=== PATIENT | female | born 1965 | race Caucasian/White ===

== ENCOUNTER 2017-05-24 13:12 | Day surgery (SDC) | payer MEDICARE, SELFPAY | END 2017-05-24 15:16 | disposition home or self-care (01) | PROVIDERS: Family Provider Emergency Medicine; Visit Provider Nurse Anesthetist, Certified Registered | DX: M51.36 Other intervertebral disc degeneration, lumbar region (principal); M47.896 Other spondylosis, lumbar region; M54.06 Panniculitis affecting regions of neck and back, lumbar region | CPT/HCPCS: 64493; 64494; 64495; J1040 ==

== ENCOUNTER 2017-06-02 10:00 | Outpatient (RCR) | payer MEDICARE, SELFPAY | END 2017-06-02 23:59 | LOC: OT 10:00 | PROVIDERS: Family Provider Emergency Medicine; PCP Emergency Medicine; Visit Provider Emergency Medicine | DX: M25.511 Pain in right shoulder (principal) | CPT/HCPCS: 97035; 97110 ==

== ENCOUNTER → 2017-06-27 11:27 | Outpatient (POV) | payer MEDICARE, SELFPAY ==
[2017-06-27 11:46] VITALS: BP 137/82; PULSE 83; RESP 20; TEMP 36.4; O2SAT 94; BMI 43.4
--- NOTE | 2017-06-27 11:58 | P.CONS_ITS ---
[facility] Pain Management SOAP Note Subjective:: This patient is a pleasant 51-year-old white female who we are seeing for degenerative disc disease of lumbar spine with lumbar spondylosis and facet arthropathy as well as bilateral sacroiliitis. She had bilateral medial branch blocks of L3-L4, L4-L5 and L5-S1 with 80% relief of her pain symptoms for 2-3 weeks. Her pain is starting to return. It is interfering with her activity. We will seek approval for repeat bilateral medial branch blocks/facet joint injections at L3-L4, L4-5 and L5-S1. Objective:: Alert and oriented ?3 in no acute distress. Increased pain with extension. Tenderness over lower lumbar spine over the facet joints of L3-L4, L4-L5 and L5- S1. Motor strength of the lower extremities is 5/5. There is no gross sensory deficit. Assessment:: Degenerative disc disease of lumbar spine with lumbar spondylosis and facet arthropathy at L3-L4, L4-L5 and L5-S1. Plan:: We will seek approval for repeat facet joint injection/medial branch blocks of L3-L4, L4-L5 and L5-S1. Patient got 80% relief for 3 weeks with her previous round of medial branch blocks at the same levels.
== END ==
PROVIDERS: Family Provider Emergency Medicine; PCP Emergency Medicine; Visit Provider Anesthesiology
DX: M47.26 Other spondylosis with radiculopathy, lumbar region (principal)
CPT/HCPCS: 99212

== ENCOUNTER 2017-07-05 17:17 | Emergency (ER) | payer MEDICARE, SELFPAY ==
[2017-07-05 18:32] VITALS: BP 123/78; PULSE 72; RESP 20; TEMP 37.4; O2SAT 96; BMI 43.6
[2017-07-05 18:57] LABS: UTC Influenza A Antigen Negative (Negative); UTC Influenza B Antigen Negative (Negative)
--- NOTE | 2017-07-05 19:03 | HMH.EDUTC ---
[facility] [place] Clinical Impression: Sinusitis Qualifiers: Sinusitis location: maxillary Chronicity: unspecified Qualified Code(s): J32.0 - Chronic maxillary sinusitis Disposition: Home, Self-Care Condition on Discharge: Good Instructions: Sinusitis, Sinus Headache, DI for Sinusitis Additional Instructions: Start antibiotic. Sinus infections may take 2-3 days to notice much improvement so be sure to use conservative measures as discussed for symptoms Flonase 2 spray in each nostril daily to help with nasal congestion, sinus an ear pressure/inflammation Lots of Fluids Sleep elevated Humidifer/vaporizer Augmentin can cause GI effects. Probiotics may help to prevent these symptoms Prescriptions: Amoxicillin/Potassium Clav [Augmentin 875-125 Tablet] 1 tab PO Q12H #14 tab Dextromethorphan Polistirex [Delsym] 10 ml PO Q12H PRN #200 maxx.er.12h PRN Reason: Cough Fluticasone Propionate [Flonase 50mcg nasal spray 16gm] 2 spr NS DAILY #1 bottle Guaifenesin/Dextromethorphan [Mucinex Dm ER 1,200-60 mg Tab] 1 each PO BID #20 tab.er.12h Referrals: Brodie Thompson MD [Primary Care Provider] - Time of Disposition: 19:17 Medical Decision Making - Medical Records Medical records reviewed: Yes: I reviewed the patient's medical records. Vital Signs: 07/05/17 18:32 Temperature 99.3 F Temperature Source Temporal Artery Scan Pulse Rate [Right] 72 Respiratory Rate 20 Blood Pressure [Right Arm] 123/78 Blood Pressure Mean [Right Arm] 93 Blood Pressure Source [Right Arm] Automatic Cuff Blood Pressure Position [Right Arm] Sitting 02 Sat by Pulse Oximetry 96 Oxygen Delivery Method Room Air - Lab Data Lab Results 07/05/17 18:33: Influenza Type A Ag Negative, Influenza Type B Ag Negative - [place] Inquiry Pt receiving controlled substance: No [place] was queried for this patient: No - Reevaluation(s) Time: 19:16 Reevaluation #1: Patient state that she is allergic to Cefaclor but she is able to take the cillin family without any reaction [facility] [place] - General Stated complaint: cough Mode of Arrival: Ambulatory Source of Information: Patient Limitations: No Limitations Description of Symptoms (Recalled from Triage Doc. by RN): COUGH, CONGESTION, BODY ACHES BEGAN YESTERDAY HEENT Symptoms (Recalled from RN notes): Yes Resp Symptoms (Recalled from RN notes): No Skin Symptoms (Recalled from RN notes): No MS Symptoms (Recalled from RN notes): No Functional Status (Recalled from RN notes): N - History of Present Illness Provider Complaint: Patient state that she has been having problems with her sinuses on and off for couple of weeks State that yesterday sinus pain and pressure returned and continued to get worse State that she has been having fever and chills and cough - Related Data Previous Rx's Medication Instructions Recorded Amoxicillin/Potassium Clav 1 tab PO Q12H #14 tab 07/05/17 [Augmentin 875-125 Tablet] Dextromethorphan Polistirex 10 ml PO Q12H PRN #200 maxx.er.12h 07/05/17 [Delsym] Fluticasone Propionate [Flonase 2 spr NS DAILY #1 bottle 07/05/17 50mcg nasal spray 16gm] Guaifenesin/Dextromethorphan 1 each PO BID #20 tab.er.12h 07/05/17 [Mucinex Dm ER 1,200-60 mg Tab] Allergies Allergy/AdvReac Type Severity Reaction Status Date / Time cefaclor [From Ceclor] Allergy Intermediate I-HIVES Verified 07/05/17 18:35 Sulfa (Sulfonamide Allergy Intermediate I-HIVES Verified 07/05/17 18:35 Antibiotics) - Worker's Comp Is this a Worker's Comp case?: No [facility] History I have reviewed the patient's past medical history: Yes - *Social History Alcohol Intake: never - Psychiatric History Expresses thoughts of harming self/others: None Suicide Plan Description: No Plan ROS Obtained: Yes All systems reviewed & no additional complaints - Constitutional Constitutional: Reports body ache, Reports chills, Reports fever(s) - ENT Ears, Nose, Mouth, and Throat: Reports sinus pain, Rep
--- NOTE | 2017-07-05 19:11 | ED_ITS ---
[facility] [place] Disposition Clinical Impression: Sinusitis Qualifiers: Sinusitis location: maxillary Chronicity: unspecified Qualified Code(s): J32.0 - Chronic maxillary sinusitis Disposition: Home, Self-Care Condition on Discharge: Good Instructions: Sinusitis, Sinus Headache, DI for Sinusitis Additional Instructions: Start antibiotic. Sinus infections may take 2-3 days to notice much improvement so be sure to use conservative measures as discussed for symptoms Flonase 2 spray in each nostril daily to help with nasal congestion, sinus an ear pressure/inflammation Lots of Fluids Sleep elevated Humidifer/vaporizer Augmentin can cause GI effects. Probiotics may help to prevent these symptoms Prescriptions: Amoxicillin/Potassium Clav [Augmentin 875-125 Tablet] 1 tab PO Q12H #14 tab Dextromethorphan Polistirex [Delsym] 10 ml PO Q12H PRN #200 maxx.er.12h PRN Reason: Cough Fluticasone Propionate [Flonase 50mcg nasal spray 16gm] 2 spr NS DAILY #1 bottle Guaifenesin/Dextromethorphan [Mucinex Dm ER 1,200-60 mg Tab] 1 each PO BID #20 tab.er.12h Referrals: Brodie Thompson MD [Primary Care Provider] - Time of Disposition: 19:17 Medical Decision Making - Medical Records Medical records reviewed: Yes: I reviewed the patient's medical records. Vital Signs: 07/05/17 18:32 Temperature 99.3 F Temperature Source Temporal Artery Scan Pulse Rate [Right] 72 Respiratory Rate 20 Blood Pressure [Right Arm] 123/78 Blood Pressure Mean [Right Arm] 93 Blood Pressure Source [Right Arm] Automatic Cuff Blood Pressure Position [Right Arm] Sitting 02 Sat by Pulse Oximetry 96 Oxygen Delivery Method Room Air - Lab Data Lab Results 07/05/17 18:33: Influenza Type A Ag Negative, Influenza Type B Ag Negative - [place] Inquiry Pt receiving controlled substance: No [place] was queried for this patient: No - Reevaluation(s) Time: 19:16 Reevaluation #1: Patient state that she is allergic to Cefaclor but she is able to take the cillin family without any reaction [facility] [place] HPI - General Stated complaint: cough Mode of Arrival: Ambulatory Source of Information: Patient Limitations: No Limitations Description of Symptoms (Recalled from Triage Doc. by RN): COUGH, CONGESTION, BODY ACHES BEGAN YESTERDAY HEENT Symptoms (Recalled from RN notes): Yes Resp Symptoms (Recalled from RN notes): No Skin Symptoms (Recalled from RN notes): No MS Symptoms (Recalled from RN notes): No Functional Status (Recalled from RN notes): N - History of Present Illness Provider Complaint: Patient state that she has been having problems with her sinuses on and off for couple of weeks State that yesterday sinus pain and pressure returned and continued to get worse State that she has been having fever and chills and cough - Related Data Previous Rx's Medication Instructions Recorded Amoxicillin/Potassium Clav 1 tab PO Q12H #14 tab 07/05/17 [Augmentin 875-125 Tablet] Dextromethorphan Polistirex 10 ml PO Q12H PRN #200 maxx.er.12h 07/05/17 [Delsym] Fluticasone Propionate [Flonase 2 spr NS DAILY #1 bottle 07/05/17 50mcg nasal spray 16gm] Guaifenesin/Dextromethorphan 1 each PO BID #20 tab.er.12h 07/05/17 [Mucinex Dm ER 1,200-60 mg Tab] Allergies Allergy/AdvReac Type Severity Reaction Status Date / Time cefaclor [From [facility]] Allergy Interme
[2017-07-05 19:29] VITALS: BP 122/82; PULSE 72; RESP 20; TEMP 37.4
== END 2017-07-05 19:31 | disposition home or self-care (01) ==
PROVIDERS: Emergency Provider Nurse Practitioner; Family Provider Emergency Medicine; PCP Emergency Medicine
DX: J32.0 Chronic maxillary sinusitis (principal)
CPT/HCPCS: 87804; 99201

== ENCOUNTER → 2017-07-19 16:59 | Outpatient (CLI) | payer MEDICARE, SELFPAY | PROVIDERS: Visit Provider Nurse Practitioner Family | DX: R11.2 Nausea with vomiting, unspecified (principal); R05 Cough; E03.9 Hypothyroidism, unspecified ==

== ENCOUNTER → 2017-07-20 14:20 | Outpatient (CLI) | payer MEDICARE, SELFPAY ==
--- NOTE | 2017-07-20 14:37 | XR_ITS ---
XR chest 2V HISTORY: ITS.REASON: cough ORDERING PHYSICIAN: Lauren Gates PATIENT AGE: 51 years COMPARISON: 04/18/2013 FINDINGS: There is mild cardiomegaly without failure. Bipolar pacemaker is present from left subclavian approach. A 7 mm nodular opacity in the right midlung laterally overlying the third interspace anteriorly. The remaining lungs are clear. No lobar consolidation or collapse. No acute bony anomalies. A bone plate over the lower cervical spine anteriorly. IMPRESSION: 1. Mild cardiomegaly without failure. 2. 7 mm right midlung nodular opacity. This is indeterminate and not readily apparent on the previous exam. Developing pulmonary nodule is considered. Chest CT may be of further value.
[2017-07-20 17:12] LABS: Thyroid Stimulating Hormone 0.78 uIU/ml (0.358-3.740)
[2017-07-22 07:15] LABS: Hep A Ab, IgM Negative (Negative); Hepatitis B Core Antibody IgM Negative (Negative); Hepatitis B Surface Antigen Negative (Negative)
[2017-07-22 08:14] LABS: Hepatitis C Antibody 0.2 s/co ratio (0.0-0.9)
== END ==
PROVIDERS: PCP Emergency Medicine; Visit Provider Nurse Practitioner Family
DX: R11.2 Nausea with vomiting, unspecified (principal); E03.9 Hypothyroidism, unspecified; R05 Cough
CPT/HCPCS: 36415; 71046; 80074; 84443

== ENCOUNTER → 2017-08-04 15:11 | Outpatient (CLI) | payer MEDICARE, SELFPAY ==
--- NOTE | 2017-08-04 15:13 | CT_ITS ---
CT chest wo con HISTORY: Pulmonary nodule evaluation, abnormal radiograph, solitary pulmonary nodule ORDERING PHYSICIAN: LALA Stout PATIENT AGE: 51 years TECHNIQUE: Axial images obtained. Sagittal and coronal reformatted images are also generated and reviewed. CONTRAST: None COMPARISON: Radiograph 07/20/2017 FINDINGS: Cardiac pacemaker device is present. No mediastinal or hilar mass is evident. There is some minor thickening of the pericardium. There is a 7 mm nodule in the superior segment of the right lower lobe. This nodule partially calcified and corresponds to the radiographic abnormality. A smaller 3 mm nodule present anterior lateral this region Patchy density left lung base with an area of atelectasis or fibrosis. No effusions. No central obstructing lesions. Upper abdominal images show postsurgical changes of the stomach and GE junction. IMPRESSION: Radiographic abnormality corresponds to a partially calcified granuloma consistent with a benign nodule
== END ==
PROVIDERS: Family Provider Emergency Medicine; PCP Emergency Medicine; Visit Provider Physician Assistant
DX: R91.1 Solitary pulmonary nodule (principal)
CPT/HCPCS: 71250

== ENCOUNTER 2017-08-05 13:37 | Day surgery (SDC) | payer MEDICARE, SELFPAY ==
[2017-08-05 13:58] VITALS: BP 98/54; PULSE 91; TEMP 36.4; O2SAT 95; BMI 41.8
--- NOTE | 2017-08-05 14:32 | HMH.PMPROC ---
- Procedure Date: 08/05/17 Time: 14:32 Anesthesiologist:: Sam Miranda MD Complications:: None Pre-procedure Diagnosis:: Degenerative disc disease of lumbar spine with lumbar spondylosis and facet arthropathy at L3-L4, L4-5 and L5-S1 Post-procedure Diagnosis:: Same Indications for Procedure:: This patient is a pleasant 51-year-old white female who we are seeing for degenerative disc disease of lumbar spine with lumbar spondylosis and facet arthropathy. She has had previous bilateral medial branch blocks of L3-L4, L4-L5 and L5-S1 with 80% relief in her pain symptoms for 2-3 weeks. Her pain has returned. We will do a second round of bilateral facet joint injection/medial branch blocks of L3-L4, L4-L5 and L5-S1 today. Procedure Details:: Lumbar medial branch block Informed consent was obtained and the risks and benefits of the procedure was explained to the patient. The back was prepped using ChloraPrep. The skin and subcutaneous tissues were anesthetized using lidocaine. I placed 22-gauge spinal needles into the facet joint/medial branches of L3-L4, L4-L5 and L5-S1 bilaterally. Needle placement was confirmed with dye. After this we injected 3 mL bupivacaine 0.25% and Depo-Medrol 13 mg into each facet joint/medial branch of L3-L4, L5 and L5-S1 bilaterally. We used a total of 80 mg Depo-Medrol for all 3 levels bilaterally. The patient tolerated the procedure well with no complications. Plan and Disposition:: We will follow-up with her in 2 weeks. We will reevaluate her symptoms at that time.
[2017-08-05 14:37] VITALS: BP 132/78; PULSE 88; RESP 18
[2017-08-05 14:38] VITALS: BP 140/75; PULSE 88; RESP 18
--- NOTE | 2017-08-05 14:43 | P.PCN_ITS ---
- Procedure Date: 08/05/17 Time: 14:32 Anesthesiologist:: Sam Miranda MD Complications:: None Pre-procedure Diagnosis:: Degenerative disc disease of lumbar spine with lumbar spondylosis and facet arthropathy at L3-L4, L4-5 and L5-S1 Post-procedure Diagnosis:: Same Indications for Procedure:: This patient is a pleasant 51-year-old white female who we are seeing for degenerative disc disease of lumbar spine with lumbar spondylosis and facet arthropathy. She has had previous bilateral medial branch blocks of L3-L4, L4- L5 and L5-S1 with 80% relief in her pain symptoms for 2-3 weeks. Her pain has returned. We will do a second round of bilateral facet joint injection/medial branch blocks of L3-L4, L4-L5 and L5-S1 today. Procedure Details:: Lumbar medial branch block Informed consent was obtained and the risks and benefits of the procedure was explained to the patient. The back was prepped using ChloraPrep. The skin and subcutaneous tissues were anesthetized using lidocaine. I placed 22-gauge spinal needles into the facet joint/medial branches of L3-L4, L4-L5 and L5-S1 bilaterally. Needle placement was confirmed with dye. After this we injected 3 mL bupivacaine 0.25% and Depo-Medrol 13 mg into each facet joint/medial branch of L3-L4, L5 and L5-S1 bilaterally. We used a total of 80 mg Depo- Medrol for all 3 levels bilaterally. The patient tolerated the procedure well with no complications. Plan and Disposition:: We will follow-up with her in 2 weeks. We will reevaluate her symptoms at that time.
[2017-08-05 14:48] VITALS: BP 93/57; PULSE 80; O2SAT 95
== END 2017-08-05 14:50 | disposition home or self-care (01) ==
LOC: SC.PAINP 13:38
PROVIDERS: Family Provider Emergency Medicine; PCP Emergency Medicine; Visit Provider Anesthesiology
DX: M51.36 Other intervertebral disc degeneration, lumbar region (principal); M47.896 Other spondylosis, lumbar region; M54.06 Panniculitis affecting regions of neck and back, lumbar region
CPT/HCPCS: 64493; 64494; 64495; J1030; Q9966

== ENCOUNTER → 2017-08-22 09:43 | Outpatient (POV) | payer MEDICARE, MEDICAID, SELFPAY ==
[2017-08-22 09:58] VITALS: BP 147/81; PULSE 68; RESP 18; TEMP 36.4; O2SAT 92; BMI 40.8
--- NOTE | 2017-08-22 10:20 | HMH.PAINSOAP ---
[facility] Pain Management SOAP Note Subjective:: Is a pleasant 51-year-old white female who presents today after her medial branch block of L3-L4 L4-L5 and L5-S1 bilaterally. Patient states that she is doing extremely well rating her pain a 2 out of 10 today. Patient does come with a new complaint of shoulder pain. She has palpable trigger points over her right trapezius. States she has right arm and hand tingling at times. Patient has recently finished 8 weeks of physical therapy. Patient also seen orthopedic and it was determined there was nothing surgical. Patient does not have decreased range of motion. Patient is on gabapentin from her primary care she states that that does help. ROS General: no recent weight change, no fever, no sleep disturbances Respiratory: no cough, no shortness of air, no recurring pulmonary infections Cardiovascular/Peripheral Vascular: No chest pain, No palpitations, no edema, no shortness of breath. Gastrointestinal: no incontinence, normal bowel movements reported Genitourinary: no incontinence Musculoskeletal: Back pain, right shoulder pain, myofascial pain Psychiatric: normal mood/ affect Neurological: [denies weakness in extremities], [denies balance issues] Objective:: Physical Exam General: Alert and oriented x3, no acute distress, pleasant and cooperative, [on room air] Lungs: Resps E/U, Symmetrical chest expansion, [CTA bilateral] Eyes: PERRL Musculoskeletal: Flexion and extension of lumbar spine somewhat guarded secondary to pain, deep tendon reflexes normal, strength in upper and lower extremities [5/5], slightly antalgic gait noted, palpable trigger points on right trapezius Neurological: speech clear, senior sales manager 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 Patient is otherwise doing well with her low back. Patient will follow up with us after her trigger point injection and we will continue to monitor how her back is feeling. She has tried and failed anti-inflammatories, 8 weeks of physical therapy, medications. This note was dictated using voice recognition software and may contain errors or omissions
--- NOTE | 2017-08-22 10:24 | P.CONS_ITS ---
[facility] Pain Management SOAP Note Subjective:: Is a pleasant 51-year-old white female who presents today after her medial branch block of L3-L4 L4-L5 and L5-S1 bilaterally. Patient states that she is doing extremely well rating her pain a 2 out of 10 today. Patient does come with a new complaint of shoulder pain. She has palpable trigger points over her right trapezius. States she has right arm and hand tingling at times. Patient has recently finished 8 weeks of physical therapy. Patient also seen orthopedic and it was determined there was nothing surgical. Patient does not have decreased range of motion. Patient is on gabapentin from her primary care she states that that does help. ROS General: no recent weight change, no fever, no sleep disturbances Respiratory: no cough, no shortness of air, no recurring pulmonary infections Cardiovascular/Peripheral Vascular: No chest pain, No palpitations, no edema, no shortness of breath. Gastrointestinal: no incontinence, normal bowel movements reported Genitourinary: no incontinence Musculoskeletal: Back pain, right shoulder pain, myofascial pain Psychiatric: normal mood/ affect Neurological: [denies weakness in extremities], [denies balance issues] Objective:: Physical Exam General: Alert and oriented x3, no acute distress, pleasant and cooperative, [ on room air] Lungs: Resps E/U, Symmetrical chest expansion, [CTA bilateral] Eyes: PERRL Musculoskeletal: Flexion and extension of lumbar spine somewhat guarded secondary to pain, deep tendon reflexes normal, strength in upper and lower extremities [5/5], slightly antalgic gait noted, palpable trigger points on right trapezius Neurological: speech clear, gimp buttonhole machine operator 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 Patient is otherwise doing well with her low back. Patient will follow up with us after her trigger point injection and we will continue to monitor how her back is feeling. She has tried and failed anti- inflammatories, 8 weeks of physical therapy, medications. This note was dictated using voice recognition software and may contain errors or omissions
== END ==
PROVIDERS: Family Provider Emergency Medicine; PCP Emergency Medicine; Visit Provider Clinical Nurse Specialist Family Health
DX: M47.26 Other spondylosis with radiculopathy, lumbar region (principal)
CPT/HCPCS: 99212

== ENCOUNTER 2017-08-24 14:31 | Day surgery (SDC) | payer MEDICARE, MEDICAID, SELFPAY ==
[2017-08-24 15:05] VITALS: BP 110/42; PULSE 73; RESP 20; TEMP 36.7; O2SAT 93; BMI 40.8
--- NOTE | 2017-08-24 15:36 | HMH.PMPROC ---
- Procedure Date: 08/24/17 Time: 15:36 Anesthesiologist:: Sam Miranda MD Complications:: None Pre-procedure Diagnosis:: Myofascial pain neck and right upper trapezius area. Post-procedure Diagnosis:: Same Indications for Procedure:: This patient is a pleasant 51-year-old white female who we have been treating for low back pain with lumbar spondylosis. She has some myofascial pain over the right upper trapezius area. We will do trigger point injections today to the right upper trapezius area. Procedure Details:: Procedure: Trigger point injections ?4 to right upper trapezius Informed consent was obtained and the risk and benefits of the procedure was explained to the patient. Patient was taken to the procedure room. The neck and right upper trapezius area was prepped using ChloraPrep. Triggerpoints were palpated and marked. Each of these trigger points were injected with bupivacaine 0.25% 3 mL and Depo-Medrol 10 mg. A total of 40 mg Depo-Medrol was used for all 4 trigger points. The patient tolerated the procedure well with no complications. Plan and Disposition:: We will follow-up with the patient 2 weeks. Will reevaluate symptoms at that time.
[2017-08-24 15:40] VITALS: BP 154/76; PULSE 88; RESP 20
[2017-08-24 15:41] VITALS: BP 155/82; PULSE 84; RESP 20
[2017-08-24 16:48] VITALS: BP 104/45; PULSE 61; RESP 16; O2SAT 97
== END 2017-08-24 15:42 | disposition home or self-care (01) ==
LOC: SC.PAINP 14:32
PROVIDERS: Family Provider Emergency Medicine; PCP Emergency Medicine; Visit Provider Anesthesiology
DX: M79.1 Myalgia (principal); M54.2 Cervicalgia
CPT/HCPCS: 20552; J1030

== ENCOUNTER → 2017-08-30 13:02 | Outpatient (CLI) | payer MEDICARE, MEDICAID, SELFPAY ==
--- NOTE | 2017-08-30 13:04 | CT_ITS ---
CT sinus wo con COMPARISON: CT scan paranasal sinuses 04/05/2017 HISTORY: Recurrent sinus infections TECHNIQUE: Multiaxial scans of the maxillofacial bones and paranasal sinuses were obtained. Sagittal and coronal reformats were evaluated as well. FINDINGS: There is either minimal focal mucoperiosteal thickening at the floor of left maxillary sinus or a small mucus retention cyst measuring 9.2 mm at its base. The may be surgical absence of the inferior turbinate right side. The nasal septum is in midline. The ostia of the O MU is patent bilaterally. The ethmoid, frontals and sphenoid sinus are clear. The nasal bone is intact. IMPRESSION: Minimal chronic inflammatory change floor of left maxillary sinus, possible postsurgical change as noted, there is no evidence of acute sinusitis
== END ==
PROVIDERS: Family Provider Emergency Medicine; PCP Emergency Medicine; Visit Provider Otolaryngology
DX: J32.0 Chronic maxillary sinusitis (principal)
CPT/HCPCS: 70486

== ENCOUNTER → 2017-09-08 15:53 | Outpatient (CLI) | payer MEDICARE, MEDICAID, SELFPAY ==
[2017-09-08 16:07] LABS: Basophils % 0.5 % (0.1-2.0); Eosinophils # 0.2 K/mm3 (0.0-0.4); Eosinophils % 2.7 % (0.1-12.0); Hematocrit 41.5 % (37.0-47.0); Hemoglobin 14.3 g/dL (12.2-16.2); Lymphocytes # 2.6 K/mm3 (0.7-4.5); Lymphocytes % 31.2 K/mm3 (10-50); Mean Corpuscular HGB Conc 34.4 g/dL (31.8-35.4); Mean Corpuscular Hemoglobin 35.3 pg (27.0-31.2); Mean Corpuscular Volume 102.5 fl (81-99); Mean Platelet Volume 7.7 fl (7.4-10.4); Monocytes # 0.5 K/mm3 (0.1-1.0); Monocytes % 5.5 % (1.7-9.3); Neutrophils % 60.1 % (37.0-80.0); Platelet Count 226 K/mm3 (142-424); Red Blood Count 4.04 M/mm3 (4.20-5.40); Red Cell Distribution Width 12.5 % (11.5-17.5); White Blood Count 8.3 K/mm3 (4.8-10.8)
[2017-09-08 16:58] LABS: Anion Gap 9.1 mEq/L (5-15); Blood Urea Nitrogen 11 mg/dL (7-18); Carbon Dioxide 33 mmol/L (21.0-32.0); Chloride 105 mmol/L (98-107); Creatinine,Serum 0.81 mg/dL (0.55-1.02); Estimated Glomerular Filt Rate 75 ml/min (>60); GFR (African American) 91 ML/MIN (>60); Glucose 77 mg/dL (74-106); Potassium 4.1 mmoL/L (3.5-5.1); Sodium 143 mmol/L (136-145)
== END ==
PROVIDERS: PCP Emergency Medicine; Visit Provider Otolaryngology
DX: Z01.818 Encounter for other preprocedural examination (principal); J32.9 Chronic sinusitis, unspecified; J01.00 Acute maxillary sinusitis, unspecified; J34.2 Deviated nasal septum
CPT/HCPCS: 36415; 80048; 85025; 93005

== ENCOUNTER → 2017-09-13 10:21 | Outpatient (POV) | payer MEDICARE, MEDICAID, SELFPAY ==
[2017-09-13 10:42] VITALS: BP 111/74; PULSE 82; RESP 20; BMI 41.3
--- NOTE | 2017-09-13 12:52 | HMH.PAINSOAP ---
[facility] Pain Management SOAP Note Subjective:: Patient is a pleasant 51-year-old white female who presents today after trigger point injections to the right upper trapezius. Patient is doing extremely well and reports no pain in this area. Patient has done well with medial branch blocks in the past however she has had an increase in her right low back pain. Patient is interested in getting a right-sided medial branch block if possible. Patient is being more active and states that she is outside walking her dogs often. Patient rates her pain at 3 out of 10 today. On gabapentin from her primary care and she states that this does help her pain. ROS General: no recent weight change, no fever, no sleep disturbances Respiratory: no cough, no shortness of air, no recurring pulmonary infections Cardiovascular/Peripheral Vascular: No chest pain, No palpitations, no edema, no shortness of breath. Gastrointestinal: no incontinence, normal bowel movements reported Genitourinary: no incontinence Musculoskeletal: Low back pain on the right side Psychiatric: normal mood/ affect Neurological: [denies weakness in extremities], [denies balance issues] Objective:: Physical Exam General: Alert and oriented x3, no acute distress, pleasant and cooperative, [on room air] Lungs: Resps E/U, Symmetrical chest expansion, Eyes: PERRL Musculoskeletal: Flexion and extension of lumbar spine somewhat guarded secondary to pain, deep tendon reflexes normal, strength in upper and lower extremities [5/5], normal gait noted, positive facet loading right side lumbar spine Neurological: speech clear, global consumer sector 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 Patient has done extremely well with this in the past. Patient states the pain is beginning to return due to her increased activity. Patient tried and failed physical therapy, stretching therapy, medications, anti-inflammatories. We will follow-up with this patient after her medial branch block. This note was dictated using voice recognition software and may contain errors or omissions
--- NOTE | 2017-09-13 12:55 | P.CONS_ITS ---
[facility] Pain Management SOAP Note Subjective:: Patient is a pleasant 51-year-old white female who presents today after trigger point injections to the right upper trapezius. Patient is doing extremely well and reports no pain in this area. Patient has done well with medial branch blocks in the past however she has had an increase in her right low back pain. Patient is interested in getting a right-sided medial branch block if possible. Patient is being more active and states that she is outside walking her dogs often. Patient rates her pain at 3 out of 10 today. On gabapentin from her primary care and she states that this does help her pain. ROS General: no recent weight change, no fever, no sleep disturbances Respiratory: no cough, no shortness of air, no recurring pulmonary infections Cardiovascular/Peripheral Vascular: No chest pain, No palpitations, no edema, no shortness of breath. Gastrointestinal: no incontinence, normal bowel movements reported Genitourinary: no incontinence Musculoskeletal: Low back pain on the right side Psychiatric: normal mood/ affect Neurological: [denies weakness in extremities], [denies balance issues] Objective:: Physical Exam General: Alert and oriented x3, no acute distress, pleasant and cooperative, [ on room air] Lungs: Resps E/U, Symmetrical chest expansion, Eyes: PERRL Musculoskeletal: Flexion and extension of lumbar spine somewhat guarded secondary to pain, deep tendon reflexes normal, strength in upper and lower extremities [5/5], normal gait noted, positive facet loading right side lumbar spine Neurological: speech clear, 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 Patient has done extremely well with this in the past. Patient states the pain is beginning to return due to her increased activity. Patient tried and failed physical therapy, stretching therapy, medications, anti-inflammatories. We will follow-up with this patient after her medial branch block. This note was dictated using voice recognition software and may contain errors or omissions
== END ==
PROVIDERS: Family Provider Emergency Medicine; PCP Emergency Medicine; Visit Provider Clinical Nurse Specialist Family Health
DX: M79.1 Myalgia (principal); M47.816 Spondylosis without myelopathy or radiculopathy, lumbar region
CPT/HCPCS: 99212

== ENCOUNTER → 2017-09-16 14:39 | Outpatient (CLI) | payer MEDICARE, SELFPAY ==
--- NOTE | 2017-09-16 14:40 | CA_ITS ---
PROCEDURE: 2-D M-mode and color Doppler study INDICATIONS FOR THE TEST: Chest painX COPD Heart Murmur Tobacco SmokingEX Palpitations FatigueX Syncope Edema HypertensionXDiabetes Mellitus Rheumatic Fever SOB DOEXObesity HyperlipidemiaX Family History HD Additional History PACEMAKER,PRE-OP EVAL PATIENT INFORMATION HEIGHT: 64 WEIGHT:242 GENDER: Female B/P:113/76 2-D/M-MODE INTERPRETATION: 2-D MEASUREMENTS OBSERVED VALUES IN CMS Right Ventricular Dimension (RVDd) 3.0 Interventricular Septum (Thickness)(IVsd) 1.1 Left Ventricular Internal Dimensions(LVIDd) 5.0 Left Ventricular Posterior Wall (Thickness)(LVPWd) 1.0 Aortic Root 3.0 Aortic Cusp Separation 1.8 Left Atrial Dimensions (LAD) 3.8 2D 1. Left atrium is mildly enlarged, left ventricle is normal size, mild concentric left ventricular hypertrophy, visually estimated ejection fraction 55% with no obvious regional wall motion abnormality. 2. The right atrium and right ventricle are mildly enlarged with normal contractility, there is a pacemaker lead seen in the right atrium and right ventricle. 3. The aortic valve is minimally thickened and fibrosed. 4. The mitral and tricuspid valve are grossly normal. 5. The pulmonic valve is poorly visualized. 6. No significant pericardial effusion noted. DOPPLER INTERROGATION: Doppler interrogation of the aortic, mitral and tricuspid valvular presence of mild mitral and tricuspid regurgitation, tricuspid and jet velocity is insufficient for calculation of the right ventricular systolic pressure, diastolic parameters are inconclusive. CONCLUSION: 1. Mildly enlarged left atrium, normal left ventricular size, mild concentric left ventricular hypertrophy, visually estimated ejection fraction 55% with no obvious regional wall motion abnormality. Diastolic parameters are inconclusive. 2. Mild mitral and tricuspid regurgitation 3. No significant pericardial effusion noted.
== END ==
PROVIDERS: Family Provider Emergency Medicine; PCP Emergency Medicine; Visit Provider Internal Medicine
DX: R06.09 Other forms of dyspnea (principal); Z01.818 Encounter for other preprocedural examination; R94.31 Abnormal electrocardiogram [ECG] [EKG]; Z95.0 Presence of cardiac pacemaker; I10 Essential (primary) hypertension; K21.9 Gastro-esophageal reflux disease without esophagitis; R07.89 Other chest pain; E78.4 Other hyperlipidemia
CPT/HCPCS: 93306

== ENCOUNTER → 2017-11-01 09:10 | Outpatient (POV) | payer MEDICARE, SELFPAY ==
[2017-11-01 09:28] VITALS: BP 110/70; PULSE 60; RESP 18; O2SAT 97; BMI 39.6
--- NOTE | 2017-11-01 09:49 | HMH.PAINSOAP ---
[facility] Pain Management SOAP Note Subjective:: Patient is a pleasant 51-year-old white female who presents today after medial branch block. Patient states that she is doing much better. Patient states that she is having increased muscle tension and fatigue in her back because of staying at a friend's house and having to sleep in a recliner. Patient is interested in physical therapy to help strengthen her back muscles. Patient patient states her pain today is a 3 out of 10. ROS General: no recent weight change, no fever, no sleep disturbances Respiratory: no cough, no shortness of air, no recurring pulmonary infections Cardiovascular/Peripheral Vascular: No chest pain, No palpitations, no edema, no shortness of breath. Gastrointestinal: no incontinence, normal bowel movements reported Genitourinary: no incontinence Musculoskeletal: Back pain Psychiatric: normal mood/ affect Neurological: [denies weakness in extremities], [denies balance issues] Objective:: Physical Exam General: Alert and oriented x3, no acute distress, pleasant and cooperative, [on room air] Lungs: Resps E/U, Symmetrical chest expansion, Eyes: PERRL Musculoskeletal: Flexion and extension of lumbar spine somewhat guarded secondary to pain, deep tendon reflexes normal, strength in upper and lower extremities [5/5], slightly antalgic gait noted Neurological: speech clear, 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 She will follow-up in 6-8 weeks after her physical therapy treatment. This note was dictated using voice recognition software and may contain errors or omissions
--- NOTE | 2017-11-01 09:59 | P.CONS_ITS ---
[facility] Pain Management SOAP Note Subjective:: Patient is a pleasant 51-year-old white female who presents today after medial branch block. Patient states that she is doing much better. Patient states that she is having increased muscle tension and fatigue in her back because of staying at a friend's house and having to sleep in a recliner. Patient is interested in physical therapy to help strengthen her back muscles. Patient patient states her pain today is a 3 out of 10. ROS General: no recent weight change, no fever, no sleep disturbances Respiratory: no cough, no shortness of air, no recurring pulmonary infections Cardiovascular/Peripheral Vascular: No chest pain, No palpitations, no edema, no shortness of breath. Gastrointestinal: no incontinence, normal bowel movements reported Genitourinary: no incontinence Musculoskeletal: Back pain Psychiatric: normal mood/ affect Neurological: [denies weakness in extremities], [denies balance issues] Objective:: Physical Exam General: Alert and oriented x3, no acute distress, pleasant and cooperative, [ on room air] Lungs: Resps E/U, Symmetrical chest expansion, Eyes: PERRL Musculoskeletal: Flexion and extension of lumbar spine somewhat guarded secondary to pain, deep tendon reflexes normal, strength in upper and lower extremities [5/5], slightly antalgic gait noted Neurological: speech clear, 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 She will follow-up in 6-8 weeks after her physical therapy treatment. This note was dictated using voice recognition software and may contain errors or omissions
== END ==
PROVIDERS: Family Provider Emergency Medicine; PCP Emergency Medicine; Visit Provider Clinical Nurse Specialist Family Health
DX: M47.816 Spondylosis without myelopathy or radiculopathy, lumbar region (principal)
CPT/HCPCS: 99212

== ENCOUNTER 2017-12-01 16:00 | Outpatient (RCR) | payer MEDICARE, MEDICAID, SELFPAY | END 2017-12-01 16:01 | disposition home or self-care (01) | LOC: PT 16:00 | PROVIDERS: Family Provider Emergency Medicine; PCP Emergency Medicine; Visit Provider Clinical Nurse Specialist Family Health | DX: M54.5 Low back pain (principal) | CPT/HCPCS: 97010; 97033; 97035; 97110; 97140; 97163 ==

== ENCOUNTER → 2018-01-11 11:51 | Outpatient (CLI) | payer MEDICARE, MEDICAID, SELFPAY ==
--- NOTE | 2018-01-11 11:54 | MM_ITS ---
MM Dig screening mamm BI w/CAD CAD Screening COMPARISON: Digital mammograms 09/16/2015 and 10/26/2016 INDICATION: There is no personal or family history of breast cancer TECHNIQUE: Standard CC and MLO images were obtained. R2 CAD reviewed. FINDINGS: Scattered fiber glandular densities are seen throughout both breasts on a background of primarily fatty breast parenchyma. Again noted is a pacemaker projecting over the axillary tail of the left breast. The possible new developing asymmetric density near the axillary tail the right breast only definitely seen on the MLO view. Recommend the patient return for spot compression MLO view and 90 degrees lateral view and exaggerated cc view and ultrasound may be necessary as well. There are few scattered benign-appearing calcifications in each breast. IMPRESSION: However fatty parenchyma with possible developing asymmetric density right breast BI-RADS Category: 0 Need Additional Imaging Evaluation RECOMMENDED FOLLOW-UP: IMM - IMMEDIATE FOLLOW-UP RECOMMENDED (A letter has been sent to the patient regarding results of the study.)
== END ==
PROVIDERS: Family Provider Emergency Medicine; PCP Emergency Medicine; Visit Provider Nurse Practitioner Obstetrics & Gynecology
DX: Z12.31 Encounter for screening mammogram for malignant neoplasm of breast (principal); R92.8 Other abnormal and inconclusive findings on diagnostic imaging of breast
CPT/HCPCS: 77067

== ENCOUNTER 2018-01-19 15:00 | Outpatient (RCR) | payer MEDICARE, MEDICAID, SELFPAY ==
--- NOTE | 2017-12-08 14:45 | HMH.PTOPEV ---
PT Outpatient Evaluation Rehab PT Outpatient Evaluation Start: 12/08/17 14:32 Freq: Status: Active Protocol: Document 12/08/17 14:33 HUNG (Rec: 12/08/17 14:45 [email or web address] [id number]) Electronically Signed By Luke Alex, PT 12/08/17 14:33 Outpatient Therapy Subjective History Subjective History Patient is a 51 year old female presenting to outpatient PT with reports of R knee pain starting after a fall at the [employer] in September of 2017. Most recent diagnostics indicate R knee OA. Referred with diagnosis of R knee OA and patellar tendonitis. Observation indicates significant genu valgus. Hx of chronic low back pain and pacemaker placement. Chief Complaint Pain Gives out/Unstable Symptom Type Ache Tingling Symptoms Relieved By Rest/Positioning Ice Symptoms Aggravated By Sitting Standing Bending/Stooping Physical Activity Twisting Walking Lifting Prior Functional Limitations None Current Functional Limitations Lifting Housework Driving Standing Sitting Squatting Recreation Activity Walking Stairs Balance Symptom Description Constant but Variable Level of pain today (0-10) 6 Pain scale - at its best (0-10) 3 Pain scale - at its worst (0-10) 9 Hip/Knee Eval Gait Observation General Gait Pattern Observation Antalgic Gait Assistive Device Assistive Devices None / NA Palpation Tenderness right Knee Palpation Finding Tenderness Knee Palpation Overall Comment Medial joint line/patellar border, patellar tendon MMT left Hip Strength Reason Not Measured WFL Knee Strength Reason Not Measured WFL right Hip Abduction Strength Grade 3+ Fair+ Hip Adduction Strength Grade 4- Good- Hip Extension Strength Grade 4- Good- Hip External Rotatio
== END 2018-01-19 15:01 | disposition home or self-care (01) ==
LOC: PT 15:00
PROVIDERS: Family Provider Emergency Medicine; PCP Emergency Medicine; Visit Provider Orthopaedic Surgery
DX: M76.51 Patellar tendinitis, right knee (principal)
CPT/HCPCS: 97010; 97033; 97035; 97110; 97163

== ENCOUNTER → 2018-01-20 14:00 | Outpatient (CLI) | payer MEDICARE, MEDICAID, SELFPAY ==
--- NOTE | 2018-01-20 14:01 | MM_ITS ---
MM Dig mamm DX unilat RT CAD INDICATION: Follow-up abnormal mammogram ORDERING PHYSICIAN: Ravin Terry MD PATIENT AGE: 52 years COMPARISON: 01/11/2018 and 10/26/2016 TECHNIQUE: Problem-solving views of the right breast FINDINGS: Average fibroglandular tissue. The asymmetric density in the deep upper aspect of the right breast does appear to compress out as fibroglandular tissue and is not readily identified on the exaggerated CC view. IMPRESSION: Negative, no residual nodule apparent on the focal spot compression views BI-RADS Category: 2 Benign Finding(s) RECOMMENDED FOLLOW-UP: 1YR - 1 YEAR FOLLOW-UP (A letter has been sent to the patient regarding results of the study.)
== END ==
PROVIDERS: Family Provider Emergency Medicine; PCP Emergency Medicine; Visit Provider Nurse Practitioner Obstetrics & Gynecology
DX: R92.8 Other abnormal and inconclusive findings on diagnostic imaging of breast (principal)
CPT/HCPCS: 77065

== ENCOUNTER → 2018-01-27 13:11 | Outpatient (CLI) | payer MEDICARE, MEDICAID, SELFPAY ==
--- NOTE | 2018-01-27 13:12 | US_ITS ---
US breast RT complete Ordering Physician: Ravin Terry MD Patient Age: 52 years: Female HISTORY: ITS.REASON: fatty parenchyma with possible developing asymmet TECHNIQUE: Ultrasound entire breast included axillary survey COMPARISON :Right mammogram 01/16/2014 As well as 01/11/2018 ====== RIGHT BREAST ULTRASOUND with axilla survey . No significant areas of concern. At 4:00 central breast there is a small slightly hyperechoic lipoma measuring up to 9.3 mm length not of concern. Can be followed. The breast demonstrates moderate size axillary lymph nodes the largest measuring 2.9 cm. These are nonspecific. Not well seen. Can be followed. On ultrasound addressed upper-outer quadrant in a area of questionable density on recent mammogram. No findings concerning here. IMPRESSION: Ultrasound right breast demonstrates no areas of concern. patient may resume annual scheduled mammogram. Bilateral follow-up mammogram in one year . BI-RADS Category: 2 Benign Finding(s) RECOMMENDED FOLLOW-UP: 1YR - 1 YEAR FOLLOW-UP (A letter has been sent to the patient regarding results of the study.)
== END ==
PROVIDERS: Family Provider Emergency Medicine; PCP Emergency Medicine; Visit Provider Nurse Practitioner Obstetrics & Gynecology
DX: R92.8 Other abnormal and inconclusive findings on diagnostic imaging of breast (principal)
CPT/HCPCS: 76641

== ENCOUNTER → 2018-03-16 11:23 | Outpatient (REF) | payer MEDICARE, MEDICAID, SELFPAY ==
[2018-03-16 14:01] LABS: Alanine Aminotransferase 31 U/L (12-78); Albumin Level 3.9 gm/dL (3.4-5.0); Albumin/Globulin Ratio 1.2 (1.1-1.8); Alkaline Phosphatase 88 U/L (46-116); Anion Gap 12.2 mEq/L (5-15); Aspartate Amino Transferase 16 U/L (15-37); Bilirubin,Total 0.5 mg/dL (0.2-1.0); Blood Urea Nitrogen 15 mg/dL (7-18); Calcium 9.6 mg/dL (8.5-10.1); Carbon Dioxide 33 mmol/L (21.0-32.0); Chloride 102 mmol/L (98-107); Estimated Glomerular Filt Rate 58 ml/min (>60); GFR (African American) 71 ML/MIN (>60); Globulin 3.2 gm/dl (1.3-3.2); Glucose 85 mg/dL (74-106); Potassium 4.2 mmoL/L (3.5-5.1); Sodium 143 mmol/L (136-145); T4 (Thyroxine) 8.7 ug/dl (4.7-13.3); Thyroid Stimulating Hormone 1.84 uIU/ml (0.358-3.740); Total Protein,Serum 7.1 gm/dL (6.4-8.2)
[2018-03-16 14:21] LABS: Basophils # 0.1 K/mm3 (0-0.2); Basophils % 0.8 % (0.1-2.0); Eosinophils # 0.2 K/mm3 (0.0-0.4); Eosinophils % 2.9 % (0.1-12.0); Hematocrit 41.6 % (37.0-47.0); Hemoglobin 13.3 g/dL (12.2-16.2); Lymphocytes # 1.8 K/mm3 (0.7-4.5); Lymphocytes % 24.5 K/mm3 (10-50); Mean Corpuscular HGB Conc 31.9 g/dL (31.8-35.4); Mean Corpuscular Hemoglobin 32.6 pg (27.0-31.2); Mean Platelet Volume 8.4 fl (7.4-10.4); Monocytes # 0.3 K/mm3 (0.1-1.0); Neutrophils # 4.9 K/mm3 (1.8-7.8); Neutrophils % 67.8 % (37.0-80.0); Platelet Count 231 K/mm3 (142-424); Red Blood Count 4.08 M/mm3 (4.20-5.40); Red Cell Distribution Width 13.6 % (11.5-17.5); White Blood Count 7.3 K/mm3 (4.8-10.8)
[2018-03-17 09:07] LABS: Vitamin D 25 Hydroxy 35.1 ng/mL (30.0-100.0)
== END ==
LOC: LAB 11:23
PROVIDERS: PCP Nurse Practitioner Family; Visit Provider Nurse Practitioner Family
DX: M25.561 Pain in right knee (principal); R00.2 Palpitations
CPT/HCPCS: 80053; 82652; 84436; 84443; 85025

== ENCOUNTER → 2018-03-23 08:07 | Outpatient (CLI) | payer MEDICARE, MEDICAID, SELFPAY ==
--- NOTE | 2018-03-23 08:09 | CA_ITS ---
PROCEDURE: 2-D M-mode and color Doppler study INDICATIONS FOR THE TEST: Chest pain COPD Heart Murmur Tobacco Smoking PalpitationsX Fatigue Syncope Edema HypertensionXDiabetes Mellitus Rheumatic Fever SOB MARTINEZ Obesity HyperlipidemiaX Family History HD Additional History PPM PATIENT INFORMATION HEIGHT: 64 WEIGHT:225 GENDER: Female B/P:110/74 2-D/M-MODE INTERPRETATION: 2-D MEASUREMENTS OBSERVED VALUES IN CMS Right Ventricular Dimension (RVDd) 3.6 Interventricular Septum (Thickness)(IVsd) .9 Left Ventricular Internal Dimensions(LVIDd) 5.8 Left Ventricular Posterior Wall (Thickness)(LVPWd) .9 Aortic Root 3.0 Aortic Cusp Separation 1.8 Left Atrial Dimensions (LAD) 3.5 2D 1. Left atrium is mildly enlarged, left ventricle is normal size, mild concentric left ventricular hypertrophy, visually estimated ejection fraction 50%, there is abnormal septal motion. 2. The right atrium and right ventricle are mildly enlarged with normal contractility, there is a pacemaker leads seen in the right atrium and right ventricle. 3. The aortic valve is minimally thickened and fibrosed. 4. The mitral and tricuspid valve leaflets are minimally thickened. 5. The pulmonic valve is poorly visualized. 6. No significant pericardial effusion noted. DOPPLER INTERROGATION: Doppler interrogation of the aortic, mitral and tricuspid valvular presence of mild mitral and tricuspid regurgitation, calculated right ventricular systolic pressure is within normal range, diastolic parameters are inconclusive CONCLUSION: 1. Mild biatrial enlargement, normal left ventricular size, mild concentric left ventricular hypertrophy, visually estimated ejection fraction 50%, there is abnormal septal motion. Diastolic parameters are inconclusive. 2. Mildly enlarged right ventricle with normal contractility. 3. Mild mitral and tricuspid regurgitation 4. No significant pericardial effusion noted.
--- NOTE | 2018-03-23 08:09 | NM_ITS ---
History and Indications: Obesity, hypertension, hyperlipidemia, chest pain, shortness of breath and palpitations Procedure: Patient received a 0.4 mg of intravenous Lexiscan, resting heart rate was 61 bpm, resting blood pressure 139/89, scan maximum heart rate achieved was 87 bpm which is less than 85% of the maximum predicted heart rate and a blood pressure was 119/67. Lexiscan patient complained of shortness of breath and chest tightness. Electrocardiogram: Resting electrocardiogram showed sinus rhythm, nonspecific ST-T changes, with Lexiscan there is less than 1.[address] segment depression noted from the baseline EKG. The EKG portion of the Lexiscan Myoview is nondiagnostic. Cardiac stress and resting SPECT images: Cardiac stress and resting SPECT images were obtained using technetium 99 Myoview 32.9 mCi stress and 10.9 mCi rest ,gated SPECT further analysis of segmental wall motion and calculation of the ejection fraction also done. Cardiac stress and rest SPECT images show uniform myocardial activity without segmental perfusion abnormality, computer derived ejection fraction is 63% with no regional wall motion abnormality, right ventricle is normal size and contractility. Conclusion: 1. The EKG portion of the Lexiscan Myoview is nondiagnostic. 2. No scintigraphic evidence of reversible ischemia seen, computer derived ejection is 63% with no regional wall motion abnormality, right ventricle is normal size and contractility. 3. Normal Lexiscan Myoview study.
--- NOTE | 2018-03-23 13:00 | HMH.ITSHM ---
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 [ASA REAZODONE PRAVASTATIN OMEPRAZOLE LISINOPRIL LEVOTHYROXINW GABAPENTIN ]
== END ==
PROVIDERS: PCP Emergency Medicine; Visit Provider Internal Medicine
DX: R06.02 Shortness of breath (principal); R00.2 Palpitations; Z01.818 Encounter for other preprocedural examination; Z95.0 Presence of cardiac pacemaker
CPT/HCPCS: 78452; 93017; 93306; A9502; J2785

== ENCOUNTER → 2018-06-08 12:31 | Outpatient (CLI) | payer MEDICARE, MEDICAID, SELFPAY ==
--- NOTE | 2018-06-08 12:37 | XR_ITS ---
XR knee RT 4V HISTORY: Progressive increasing pain ITS.REASON: 4 view weightbearing ORDERING PHYSICIAN: Ralph Lau MD PATIENT AGE: 52 years COMPARISON: 10/06/2017 FINDINGS: There are severe osteoarthritic changes of the medial compartment and patellofemoral joint. Is difficult to determine if this is worse compared to the previous exam as the previous exam was not performed with weightbearing as well as today's study. No fracture or dislocation. No lytic or blastic change. IMPRESSION: Severe osteoarthritis of the right knee at the medial compartment and patellofemoral joint
[2018-06-08 13:02] LABS: Microscopic, Urine URINE MICROSCOPIC (MICROSCOPIC)
--- NOTE | 2018-06-08 13:16 | XR_ITS ---
XR chest 2V HISTORY: ITS.REASON: HTN, EX SMOKER, PRE OP ORDERING PHYSICIAN: Ralph Lau MD PATIENT AGE: 52 years COMPARISON: 04/17/2018 FINDINGS: Bipolar pacemaker is present from the left subclavian approach. Normal heart size. Lungs are clear bilaterally with no acute bony anomalies. There is a bone plate overlying the lower cervical spine. IMPRESSION: No change with no acute finding
[2018-06-08 13:20] LABS: Appearance,Urine CLEAR (Clear); Bilirubin,Urine Negative (Negative); Blood, Urine Negative (Negative); Color,Urine YELLOW (Yellow); Glucose,Urine (UA) Negative (Negative); Ketones,Urine Negative (Negative); Leukocyte Esterase,Urine Negative (Negative); Nitrate,Urine Negative (Negative); Protein,Urine Negative (Negative); Urobilinogen,Urine 0.2 EU/dl (0.2)
[2018-06-08 13:32] LABS: Bacteria,Urine Trace /lpf; Squamous Epithelial Cell,Urine Occasional #/hpf (0-5); WBC,Urine Occasional #/hpf (0-3)
[2018-06-08 13:54] LABS: Basophils # 0.1 K/mm3 (0-0.2); Basophils % 0.5 % (0.1-2.0); Eosinophils # 0.2 K/mm3 (0.0-0.4); Eosinophils % 1.6 % (0.1-12.0); Hematocrit 41.9 % (37.0-47.0); Hemoglobin 13.1 g/dL (12.2-16.2); Lymphocytes # 2.1 K/mm3 (0.7-4.5); Lymphocytes % 23.2 % (10-50); Mean Corpuscular HGB Conc 31.3 g/dL (31.8-35.4); Mean Corpuscular Hemoglobin 31.8 pg (27.0-31.2); Mean Corpuscular Volume 101.8 fl (81-99); Mean Platelet Volume 7.4 fl (7.4-10.4); Monocytes # 0.4 K/mm3 (0.1-1.0); Monocytes % 4.4 % (1.7-9.3); Neutrophils # 6.5 K/mm3 (1.8-7.8); Neutrophils % 70.3 % (37.0-80.0); Platelet Count 254 K/mm3 (142-424); Red Blood Count 4.12 M/mm3 (4.20-5.40); Red Cell Distribution Width 13.8 % (11.5-17.5); White Blood Count 9.2 K/mm3 (4.8-10.8)
[2018-06-08 14:17] LABS: Alanine Aminotransferase 34 U/L (12-78); Albumin Level 3.8 gm/dL (3.4-5.0); Albumin/Globulin Ratio 1.2 (1.1-1.8); Alkaline Phosphatase 89 U/L (46-116); Anion Gap 12.6 mEq/L (5-15); Aspartate Amino Transferase 21 U/L (15-37); Bilirubin,Total 0.4 mg/dL (0.2-1.0); Blood Urea Nitrogen 9 mg/dL (7-18); Calcium 9.2 mg/dL (8.5-10.1); Carbon Dioxide 32 mmol/L (21.0-32.0); Chloride 102 mmol/L (98-107); Creatinine,Serum 0.96 mg/dL (0.55-1.02); Estimated Glomerular Filt Rate 61 ml/min (>60); GFR (African American) 74 ML/MIN (>60); Globulin 3.2 gm/dl (1.3-3.2); Glucose 86 mg/dL (74-106); Potassium 4.6 mmoL/L (3.5-5.1); Sodium 142 mmol/L (136-145)
== END ==
PROVIDERS: PCP Emergency Medicine; Visit Provider Orthopaedic Surgery
DX: M17.11 Unilateral primary osteoarthritis, right knee (principal); Z01.818 Encounter for other preprocedural examination
CPT/HCPCS: 36415; 71046; 73564; 80053; 81001; 85025; 86850

== ENCOUNTER 2018-07-04 08:11 | Inpatient (IN) ==
--- NOTE | 2018-07-04 08:55 | Progress Note ---
[facility] Anesthesia Checklist - Patient Identification Patient Identification: Arm Band, Verbal (Name & ) - Structural Data Admitted From: Home Planned Operative Procedure/s: right TKA Consent for Planned Operative Procedure(s) Verified: Yes Verified Documents: History and Physical - NPO Status Verified Time NPO: 00:00 - Additional verifications Patient : No Anesthesia Reactions: No Hx Blood Transfusions: No Blood Transfusion Reaction: No Cephalosporin Allergy: No Previous Colonoscopy: No - Cardiovascular Assessment Heart Sounds: S1 & S2 Pulse Strength: Baseline Pulse Rhythm: Regular Peripheral Edema: No - Airway Assessment C-Spine Mobility Assessed: Yes TMJ Mobility Assessed: Yes Dentition: Good Dentition - Neurological Assessment Level of Consciousness: Awake, Alert, Appropriate Hx Seizures: No Numbness or tingling in extremities: No - Anesthesia Plan Anesthesia Risk discussed: Yes Anesthesia Plan: Verified ASA Class: III Anesthesia Type: General [facility] History I have reviewed the patient's past medical history: Yes Medical History: Reports:: Asthma, Coronary Artery Disease, Hyperlipidemia, Hypertension, Internal Pacemaker, Lung Disease Denies:: Cancer, Diabetes Mellitus Type 1, Diabetes Mellitus Type 2, MRSA, Seizures Have you received a flu vaccine this season?: Yes Other Medical History: Reports: Hypothyroidism, Sinus Problems. Denies: Blood Transfusion Reaction Laterality Cases: Left: Arthroscopy Knee, Arthroscopy Shoulder, Myringotomy (Ear Tubes), Bilateral: Carpal Tunnel Release, Tonsillectomy Other Surgeries: Yes: Appendectomy, Cholecystectomy, , Hernia Repair, Hysterectomy-Total, Pacemaker, Sinus Surgery, Other Amputation: No Fractures: Yes - *Social History Smoking Status: Never smoker Alcohol Intake: current Alcohol Intake Frequency:: a few times a week Substance Use Type: denies use Occupational Status: disabled Housing: other Household Members: children *Family Hx:: Cancer, Diabetes, Hypertension, Thyroid Disorder
--- NOTE | 2018-07-04 14:38 | Progress Note ---
[facility] Anesthesia Record Part II Discharge Time: 15:00 Destination: floor PACU nurse assessment reviewed?: Yes Patient Condition:: Good Anesthesia Complications:: None Swallowing reflex intact?: Yes Cyanosis?: No
--- NOTE | 2018-07-04 14:38 | Progress Note ---
[facility] Anesthesia Record Part I Intake, IV Amount: 2,700 Estimated blood loss (mL): 50 Urine output (mL): 150 Blood Pressure: 125/71 SaO2: 92 Pulse Rate: 78 Respiratory Rate: 10 Temperature: 99.6 F Patient is:: Awake, Stable Stable to PACU at:: 14:30
--- NOTE | 2018-07-04 16:22 | Operative Note ---
Date of procedure: 07/04/18 Pre-op Diagnosis:: Advanced degenerative arthritis, right knee Post-op Diagnosis:: Same Procedure performed:: Cemented total knee arthroplasty, right knee Surgeon:: Ralph Lau MD Commercial Floor Covering Installer(s):: Rita Gr GARAGE HELPER:: Jesus Hopper Anesthesia: GETA, other (Femoral nerve block) Estimated blood loss (mL): 50 Clinical Note:: Patient is a 52-year-old female with end-stage osteoarthritis and [id number] osteoarthritis of the medial compartment with a progressive varus deformity and flexion contracture presented with unremitting severe pain not relieved by conservative management. The pain is advanced to the point that it is becoming a hazard for her with risk of falling and injuring herself. Total knee arthroplasty is indicated to relieve the pain, improve function, reduce the risk of falls and improve quality of life. Please refer to my office note for full details. Operative findings:: As noted on the preoperative evaluation, the knee joint had a fixed flexion of 10 and fixed varus deformity. As seen on the x-rays, the medial and patellofemoral compartments showed advanced degenerative changes with [id number] appearance. The menisci and cruciate ligaments were significantly degenerated. There was extensive osteophyte formation over all 3 compartments. Bone quality is satisfactory. Operative note:: On the day of the surgery the patient and her were seen in the preoperative area. I reviewed the clinical and x-ray findings with the patient and her . I again discussed the diagnosis, natural history and management options in detail including both nonsurgical and surgical. She has end-stage degenerative arthritis of her RIGHT knee and has failed to respond satisfactorily to conservative management so far and has opted for a RIGHT total knee arthroplasty. Patient has failed appropriate nonsurgical management and continues to be in significant pain and disability. Her knee joints also give out and she is at risk of falls resulting in fractures. We again discussed the details of the procedure, risks and benefits and alternatives in detail. The complications discussed include but are not limited to infection, injury to nerves and blood vessels including injury to popliteal artery, injury to tendons and ligaments, DVT and PE, fat embolism, intraoperative fracture, limb length inequality, patella fracture, patellofemoral instability, patellar clunk syndrome, quadriceps and patellar tendon rupture, implant failure, component loosening, periprosthetic femur and tibia fractures, stiffness(arthrofibrosis), limp, incomplete relief of pain, incomplete functional recovery, likely need for further surgery in future including revision and anesthetic complications including heart attack, stroke and even . We discussed how any of these events can be devastating. We have discussed nonsurgical alternatives as well. Patient understands wishes to proceed with a RIGHT total knee arthroplasty and I believe that she is fully informed as to the risks, benefits, and alternatives including nonsurgical alternatives. We also discussed the postoperative course including the rehab and physical therapy required. She lives with her family and is planning to go back home with home health after surgery. A physical examination was performed and documented. Patient understood the risks, agreed to proceed with surgery, signed the consent form and no guarantees or assurances were given or implied. The patient was then brought to the operating room and a general anesthesia was administered by the agile java developer. Prior to that she had femoral and sciatic nerve blocks in the pre-anesthetic area. The patient was then positioned supine on the operating table. All the bony prominences were appropriately padded. A well-padded tourniquet cuff was placed high over the upper thigh. The RIGHT knee was then prepped with isopropyl alcohol followed by chlorhexidine and draped in the usual sterile fashion. Prior to this, patient had used Hibiclens for a total of 5 days prior to the surgery and also used topical intranasal Bactroban. The entire operative team wore isolation suits and the Operating Room traffic was controlled. The skin incision was marked for a medial parapatellar approach to the knee joint. The entire operative site was sealed off with Ioban drape. A preprocedure timeout was performed as per hospital protocol. At the start of the procedure administration of 2 g of prophylactic IV Ancef was confirmed with the anesthetic team. Also patient received 1 g of IV tranexamic acid before starting the procedure to reduce the postoperative blood loss. A preprocedure timeout was performed as per hospital protocol. The limb was exsanguinated with Esmarch bandage, the knee joint flexed beyond 90 and the tourniquet cuff was inflated to 300 mmHg. Please see the nursing records for a total tourniquet time. I then made a midline incision utilizing a #10 scalpel blade. Electrocautery was used to seal subcutaneous vessels. The extensor mechanism was exposed, marked and a curvilinear incision made for a medial parapatellar approach using the scalpel blade. The patella was everted carefully and the fat pad resected just enough to allow sufficient visualization of the proximal tibia. The anterior cruciate ligament and the anterior aspects of both menisci were resected. An appropriate medial release was performed with the knife and Mago elevator. A step drill was used to open the intramedullary canal and the guide was placed. The jig was pinned into position and the intramedullary guide removed. The distal cut was made at 5 degrees of valgus and the sizing jig placed. This sized best at a size 4 femur for the [employer] system. We then placed the 4-in-1 cutting block in position in 3 degrees of external rotation. A cross pin was added for stabilizing the block and the shannan wing utilized to ensure notching of the femur would not occur. The anterior cut was made followed by the posterior cut then the posterior chamfer and finally the anterior chamfer cuts in that order. Soft tissues were protected throughout with careful retraction using the Z retractors. We checked for trueness of cuts and then moved on to the tibia. The extra medullary guide was placed and aligned from the central aspect of the plateau between the spines down to the second metatarsal base. We pinned cutting block in position for minimal resection of the tibia from the medial side which was more severely involved with arthritis, checked alignment, protected the soft tissues with appropriate retractors and resected with the [place] saw. The resected tibial plateau articular surface was removed and sized it at a size 3. We ensured correctness of the cut and correct posterior slope. We then checked the extension and flexion gaps and found them to be equal and well balanced. We trialed the femur and the tibia with a polyethylene insert and ranged the knee to ensure full flexion and extension unchecked for ligamentous stability. We then everted the patella and reamed for a 26 mm central pegged button. We had lateralized the femur and medialized the patella intentionally. We placed trial components and noted that a 11 mm thick polyethylene fit best. This gave us a ligamentously stable knee and allowed full extension. We allowed this to be free-floating and then checked it and made sure it was in appropriate position in relation to the tibial tubercle. We also used tibial alignment carrie to check for satisfactory position of the base plate and markings were made with electrocautery on the proximal tibia. We then elected to proceed with the box cut for a posterior stabilized femoral component. We placed the cutting jig for the box cut in the femur, drilled and then used the box osteotome to create the channel. We then trialed with the posterior stabilized polyethylene and found a size 13 to fit best. This gave us appropriate range of motion with proper ligamentous stability. We then removed the trial components and positioned and pinned the base plate to the top of the tibia and punched the groove for the V shaped stem. We used a small trocar tipped pin drill holes into the subchondral sclerotic bone of the medial tibia to augment cement fixation. We then copiously irrigated, injected the bone with 2 g of Ancef, and then dried the cut surfaces. We then cemented the tibial tray, the femoral component, and placed a 13 mm trial polyethylene insert and brought the knee into extension. We then cemented the central pegged patella button. We allowed the cement to set and then inspected the knee joint and removed excess cement with an osteotome. We then placed the 13 mm definitive polyethylene tibial insert ensuring that the dovetails fit appropriately and that the polyethylene was down and seated into the tibial tray properly. The knee joint was put through range of motion and noted the patella to be tracking appropriately with no thumb technique. The knee joint was then soaked with dilute Betadine (0.35 percent) solution for 3 minutes followed by suctioning of the solution and pulsatile lavage with the 1 L of normal saline. The tourniquet was deflated and hemostasis obtained with diathermy cautery. Another gram of tranexamic acid was given intravenously by the agile java developer at the time of deflating the tourniquet. The knee joint was again thoroughly irrigated with the pulse lavage and good hemostasis was confirmed before proceeding with wound closure. The capsule/extensor mechanism was closed with interrupted #2 Ethibond and #1 Vicryl [id number] sutures ensuring a watertight closure. Next the subcutaneous tissue was closed with 2-0 Vicryl interrupted sutures. The skin was closed with subcuticular 4-0 Monocryl sutures, Dermabond and Steri-Strips. Sterile dressings were applied consisting of Silverlon, 4 x 4 gauze, soft roll and secured in place with Gume wrap. No drains were placed.The patient was then transferred from the operating table onto the bed. The tibialis posterior and dorsalis pedis pulses were noted 1+ with good capillary refill in the foot. The patient was then reversed from the anesthetic and transported to the postoperative recovery area in a stable condition. Patient tolerated the procedure well and there were no immediate complications. The swab, needle and instrument counts were correct according to the scrub team at the end of the procedure. Portable x-rays of the RIGHT knee AP view and lateral view were obtained in the recovery area which showed the components were well fixed in a satisfactory position without any complications. The knee was placed in a knee immobilizer which should be continued when standing and walking, until she regains full quadriceps control. Postoperatively, institute and continue standard precautions and physical therapy for a standard total knee arthroplasty starting on postoperative day 1. Patient can be mobilized full weightbearing as tolerated. Implants: [employer] Journey II BCS TKA system [employer] Journey nonporous tibial baseplate- RIGHT, size 4 [employer] bicruciate stabilized Journey II BCS Oxinium femoral component- RIGHT, size 6 [employer] Journey II BCS XLPE articular insert- RIGHT, size 3-4 x 9 mm [employer] Journey BCS Biconvex patellar component- 26 mm [employer] Versabond AB bone cement Industry agricultural sales representative: Jose M Cerna ([employer]) Condition: stable Disposition: PACU Specimens:: None Complications:: None
[2018-07-05 06:16] LABS: Basophils % 0.1 % (0.1-2.0); Eosinophils % 0.2 % (0.1-12.0); Hematocrit 34.7 % (37.0-47.0); Hemoglobin 10.8 g/dL (12.2-16.2); Lymphocytes # 1.4 K/mm3 (0.7-4.5); Lymphocytes % 9.3 % (10-50); Mean Corpuscular HGB Conc 31.2 g/dL (31.8-35.4); Mean Corpuscular Hemoglobin 31.7 pg (27.0-31.2); Mean Corpuscular Volume 101.4 fl (81-99); Mean Platelet Volume 8.3 fl (7.4-10.4); Monocytes # 0.7 K/mm3 (0.1-1.0); Monocytes % 4.4 % (1.7-9.3); Neutrophils % 86.1 % (37.0-80.0); Platelet Count 205 K/mm3 (142-424); Red Blood Count 3.43 M/mm3 (4.20-5.40); Red Cell Distribution Width 13.5 % (11.5-17.5); White Blood Count 15.1 K/mm3 (4.8-10.8)
[2018-07-05 06:31] LABS: Calcium 8.4 mg/dL (8.5-10.1)
[2018-07-05 07:07] LABS: Lymphocytes % 6 % (10-50); Macrocytosis 1+; Monocytes % 3 % (2-9); Neutrophils % 88 % (42-76); Total Cells Counted 100
--- NOTE | 2018-07-05 08:10 | Pharmacy Consult Notes ---
[facility] Pharmacy VTE Monitoring - Patient Demographics Admission date: 07/04/18 Report Date: 07/05/18 Time: 08:09 Allergies/Adverse Reactions: Patient Allergies cefaclor [From Ceclor] Allergy (Intermediate, Verified 07/02/18 14:03) I-HIVES Sulfa (Sulfonamide Antibiotics) Allergy (Intermediate, Verified 07/02/18 14:03) I-HIVES Height: 1.63 m Weight: 103.447 kg - VTE Risk Labs: VTE Related Lab Results Hgb 10.8 g/dL (12.2-16.2) L 07/05/18 06:00 Hct 34.7 % (37.0-47.0) L 07/05/18 06:00 Plt Count 205 K/mm3 (142-424) 07/05/18 06:00 BUN 19 mg/dL (7-18) H 07/05/18 06:00 Creatinine 1.12 mg/dL (0.55-1.02) H 07/05/18 06:00 Estimated Creat Clear 97 mL/min (50-200) 07/05/18 06:00 Was VTE Risk Assessment Performed: Yes VTE Score: 4 VTE Risk Level: Low Risk Clinical Trial Participant: No - Prophylaxis VTE Prophylaxis Ordered?: Yes Types of VTE Prophylaxis: IPCS Knee High Location of Applied Device: Left Leg
--- NOTE | 2018-07-05 13:01 | Progress Note ---
Subjective Date: 07/05/18 Time: 08:30 Principal diagnosis: Status post total knee arthroplasty, right Interval history: Patient is status post right total knee arthroplasty, post op day #1. Patient is lying down on the bed. Patient says she is doing well and reports no problems. Patient has minimal pain and says it's well-controlled with medication. No history of any nausea or vomiting. No history of any cough, chest pain, shortness of breath or palpitations. Patient says she is eating and drinking well. No history of any distal tingling or numbness. PN: Obj Ex Vital signs: Temp Pulse Resp BP Pulse Ox 98.5 F 81 18 113/60 98 07/05/18 08:00 07/05/18 08:00 07/05/18 08:00 07/05/18 08:00 07/05/18 08:00 Narrative: Laboratory Results - last 24 hr 07/04/18 10:30: Urine Color Yellow, Urine Appearance Clear, Urine pH 7.0, Ur Specific Harmony 1.015, Urine Protein Negative, Urine Glucose (UA) Negative, Urine Ketones Negative, Urine Blood Negative, Urine Nitrate Negative, Urine Bilirubin Negative, Urine Urobilinogen 2.0, Ur Leukocyte Esterase Negative, Urine RBC None, Urine WBC Occasional, Ur Squamous Epith Cells Occasional, Urine Bacteria Trace 07/05/18 06:00: WBC 15.1 H, RBC 3.43 L, Hgb 10.8 L, Hct 34.7 L, MCV 101.4 H, MCH 31.7 H, MCHC 31.2 L, RDW 13.5, Plt Count 205, MPV 8.3, Neut % (Auto) 86.1 H, Lymph % (Auto) 9.3 L, Hettinger % (Auto) 4.4, Eos % (Auto) 0.2, Baso % (Auto) 0.1, Neut # (Auto) 13.0 H, Lymph # (Auto) 1.4, Hettinger # (Auto) 0.7, Eos # (Auto) 0.0, Baso # (Auto) 0.0, Total Counted 100, Neutrophils % (Manual) 88 H, Band Neutrophils % 2.0, Lymphocytes % (Manual) 6 L, Atypical Lymphs % 1.0, Monocytes % (Manual) 3, Platelet Estimate Normal, Macrocytosis 1+ 07/05/18 06:00: Sodium 136, Potassium 5.0, Chloride 102, Carbon Dioxide 28, Anion Gap 11.0, BUN 19 H, Creatinine 1.12 H, Estimated Creat Clear 97, Estimated GFR 51 L, Est GFR ( Amer) 62, Glucose 121 H, Calcium 8.4 L Exam General appearance: alert, active, awake, no acute distress Cardiovascular: regular rate & rhythm, normal peripheral pulses Respiratory: Clear to auscultation, normal breath sounds ABD: soft and non tender Neuro: alert,, awake, oriented x 3 Psych: normal mood and affect Genitourinary: Catheter in situ. On examination of the lower extremities the limb lengths are equal. On examination of the right knee the dressings are clean, dry and intact. Leg compartments are soft. Distal pulses are 2+. Capillary refill is brisk. She has numbness over her right foot and ankle. She is actively moving the ankle, foot and the toes. Postoperative check x-ray reviewed along with radiologist report. The x-rays show right total knee arthroplasty in satisfactory alignment. No complications noted. - Urinary Catheter Management Ross Cath placed during this visit: yes Urethral indwelling: Yes Reason for continuing: Surgical procedure Insertion date: 07/04/18 Insertion time: 10:30 Progress Note: A&P Assessment and Plan for All Diagnoses:: I have reviewed the clinical and operative findings and procedure performed with the patient. Advised her to avoid placing pillow behind the knee; use knee im mobilizer when weightbearing and walking until she regains full quadriceps control and is able to actively straight leg raise. Continue DVT prophylaxis and as needed pain medication. Discontinue IV fluids and discontinue the urinary catheter. I have given a paper copy of postoperative knee x-rays to the patient. Care management consult regarding discharge planning. Patient is keen to go to a retirement facility for rehab. Medical management as per Dr. Thompson.
--- NOTE | 2018-07-05 13:31 | Consult Report ---
*Admission Date: 07/04/18 *Chief complaint: knee surg *History of present illness: this wf is known to us and is admitted by ortho for knee replacement - [facility] History I have reviewed the patient's past medical history: Yes Medical History: Reports:: Asthma, Coronary Artery Disease, Hyperlipidemia, Hypertension, Internal Pacemaker, Lung Disease Denies:: Cancer, Diabetes Mellitus Type 1, Diabetes Mellitus Type 2, MRSA, Seizures Have you ever received a pneumonia vaccine?: Yes Have you received a flu vaccine this season?: Yes Other Medical History: Reports: Hypothyroidism, Sinus Problems. Denies: Blood Transfusion Reaction Laterality Cases: Left: Arthroscopy Knee, Arthroscopy Shoulder, Myringotomy (Ear Tubes), Bilateral: Carpal Tunnel Release, Tonsillectomy Other Surgeries: Yes: Appendectomy, Cholecystectomy, , Hernia Repair, Hysterectomy-Total, Pacemaker, Sinus Surgery, Other Amputation: No Fractures: Yes - *Social History Educational Level: Completed College Smoking Status: Never smoker Alcohol Intake: never Alcohol Intake Frequency:: a few times a week Substance Use Type: denies use Occupational Status: employed, disabled Housing: [facility] Household Members: children Travel in the last 8 weeks: None - Psychiatric History Expresses thoughts of harming self/others: None Suicide Plan Description: No Plan Family Hx:: Cancer, Diabetes, Hypertension, Thyroid Disorder Review of Systems - Review of Systems Review of systems:: pertinent systems reviewed and negative unless documented below - Constitutional Denies fever(s) - Eyes Denies change in vision - ENT Denies sinus pain - *Cardiovascular Denies chest pain at rest - *Respiratory Denies cough - *Gastrointestinal Reports constipation, Denies abdominal pain - *Genitourinary Denies blood in urine - *Musculoskeletal Reports joint pain, Reports joint swelling, Reports limited joint movement, Denies back pain, Denies neck pain - Integumentary/Breasts Denies rash - *Neurologic Denies headache(s), Denies seizure-like activity - Psychiatric Denies anxiety Meds Home Medications Medication Instructions Recorded Confirmed Type albuterol sulfate HFA 90 2 puff INHALATION Q4-6H PRN 07/19/17 07/03/18 History mcg/actuation aerosol inhaler gabapentin 300 mg capsule 300 mg PO QID 07/19/17 07/05/18 History hydroxyzine pamoate 25 mg capsule 75 mg PO TID PRN #30 cap 07/19/17 07/03/18 Rx lamotrigine 200 mg tablet 200 mg PO BID tab 07/19/17 07/03/18 History levocetirizine 5 mg tablet 5 mg PO DAILY 07/19/17 07/05/18 History montelukast 10 mg tablet 10 mg PO DAILY 07/19/17 07/05/18 History omeprazole 40 mg capsule,delayed 40 mg PO BID cap 07/19/17 07/03/18 History release risperidone 1 mg tablet 1 mg PO 0800,1200 tab 07/19/17 07/05/18 History trazodone 150 mg tablet 150 mg PO HSP PRN 07/19/17 07/05/18 History Fluticasone Propionate [Flonase 2 spr NS DAILY 08/24/17 07/04/18 History 50mcg nasal spray 16gm] acetaminophen ER 650 mg 650 mg PO Q8H PRN #90 tab 03/16/18 07/03/18 Rx tablet,extended release ibuprofen 800 mg tablet 800 mg PO BID PRN #60 tab 03/16/18 07/03/18 Rx Bisoprolol Fumarate [Bisoprolol 5 mg PO DAILY 04/17/18 07/03/18 History 5mg Tablet] pravastatin 20 mg tablet 20 mg PO DAILY #90 tab 05/01/18 07/03/18 Rx hydrochlorothiazide 25 mg tablet 25 mg PO QAM #30 tab 07/04/18 07/04/18 Rx Ascorbic Acid [Vitamin C 500mg 500 mg PO DAILY 07/05/18 07/05/18 History tablet] Baclofen [Lioresal 10mg tablet] 10 mg PO TID 07/05/18 07/05/18 History Calcium Carbonate/Vitamin D3 1 tab PO DAILY 07/05/18 07/05/18 History [Calcium 600 + Vit D Tablet] Cholecalciferol (Vitamin D3) 1,000 unit PO DAILY 07/05/18 07/05/18 History [Vitamin D3 1,000 Unit Cap] Estradiol 1 patch TD .2X/WEEK 07/05/18 07/05/18 History Ferrous Sulfate [Feosol] 325 mg PO DAILY 07/05/18 07/05/18 History Fluticasone/Salmeterol [Advair 1 puff IH BID 07/05/18 07/05/18 History 500/50mcg diskus] Indomethacin [Indocin 25mg capsule] 50 mg PO TIDP PRN 07/05/18 07/05/18 History Lisinopril [Prinivil 20mg Tablet] 20 mg PO DAILY 07/05/18 07/05/18 History Multivit with Minerals/Herbs 1 each PO DAILY 07/05/18 07/05/18 History [Women's Biomultiple Tablet] Thiamine HCl [Vitamin B-1] 50 mg PO DAILY 07/05/18 07/05/18 History Tiotropium [place] [Spiriva 2 puffs IH DAILY 07/05/18 07/05/18 History Respimat] Vortioxetine Hydrobromide 20 mg PO DAILY 07/05/18 07/05/18 History [Trintellix] buPROPion HCl [Bupropion HCl Sr] 200 mg PO BID 07/05/18 07/05/18 History levothyroxine 50 mcg tablet 50 mcg PO DAILY #90 tab 07/05/18 Rx raNITIdine HCl [Ranitidine HCl] 300 mg PO HS 07/05/18 07/05/18 History risperiDONE [Risperdal 1mg Tablet] 3 mg PO HS 07/05/18 07/05/18 History Allergies Allergy/AdvReac Type Severity Reaction Status Date / Time cefaclor [From [facility]] Allergy Intermediate I-HIVES Verified 07/02/18 14:03 Sulfa (Sulfonamide Allergy Intermediate I-HIVES Verified 07/02/18 14:03 Antibiotics) Exam Vital signs and Labs for Last 24 Hours: Temp Pulse Resp BP Pulse Ox 98.5 F 81 18 113/60 98 07/05/18 08:00 07/05/18 08:00 07/05/18 08:00 07/05/18 08:00 07/05/18 08:00 Laboratory Results - last 24 hr 07/04/18 10:30: Urine Color Yellow, Urine Appearance Clear, Urine pH 7.0, Ur Specific [place] 1.015, Urine Protein Negative, Urine Glucose (UA) Negative, Urine Ketones Negative, Urine Blood Negative, Urine Nitrate Negative, Urine Bilirubin Negative, Urine Urobilinogen 2.0, Ur Leukocyte Esterase Negative, Urine RBC None, Urine WBC Occasional, Ur Squamous Epith Cells Occasional, Urine Bacteria Trace 07/05/18 06:00: WBC 15.1 H, RBC 3.43 L, Hgb 10.8 L, Hct 34.7 L, MCV 101.4 H, MCH 31.7 H, MCHC 31.2 L, RDW 13.5, Plt Count 205, MPV 8.3, Neut % (Auto) 86.1 H, Lymph % (Auto) 9.3 L, [place] % (Auto) 4.4, Eos % (Auto) 0.2, Baso % (Auto) 0.1, Neut # (Auto) 13.0 H, Lymph # (Auto) 1.4, [place] # (Auto) 0.7, Eos # (Auto) 0.0, Baso # (Auto) 0.0, Total Counted 100, Neutrophils % (Manual) 88 H, Band Neutrophils % 2.0, Lymphocytes % (Manual) 6 L, Atypical Lymphs % 1.0, Monocytes % (Manual) 3, Platelet Estimate Normal, Macrocytosis 1+ 07/05/18 06:00: Sodium 136, Potassium 5.0, Chloride 102, Carbon Dioxide 28, An ion Gap 11.0, BUN 19 H, Creatinine 1.12 H, Estimated Creat Clear 97, Estimated GFR 51 L, Est GFR ( Amer) 62, Glucose 121 H, Calcium 8.4 L I & O for Last 24 hours: Intake & Output 07/03/18 07/04/18 07/05/18 07/06/18 11:59 11:59 11:59 11:59 Intake Total 5985 / 5985 Output Total 1720 / 1720 Balance 4265 / 4265 Weight 485 lb 0.271 oz 228 lb 1 oz - Constitutional no acute distress, obese - *Routine HEENT Exam Head: Present: normocephalic Eye: Present: EOMI, PERRL ENT: Present: mucous membranes dry - *Routine Neck Exam Present: supple. Absent: JVD - *Routine Respiratory Exam Present: CTA bilaterally. Absent: respiratory distress - *Routine Cardiovascular Exam Present: RRR, murmur - *Routine Abdominal Exam Present: soft - *Routine Extremities Exam Absent: calf tenderness Comments: has marked djd changes knees - *Routine Skin Exam Present: intact - *Routine Neurological Exam Present: alert, oriented X3, CN II-XII intact - Routine Psychiatric Exam Present: normal affect Internal Medicine - CN: Reslt - Labs CBC & Chem 7: 07/05/18 06:00 07/05/18 06:00 Labs: Short CBC 07/05/18 Range/Units 06:00 WBC 15.1 H (4.8-10.8) K/mm3 Hgb 10.8 L (12.2-16.2) g/dL Hct 34.7 L (37.0-47.0) % Plt Count 205 (142-424) K/mm3 BMP 07/05/18 06:00 Sodium 136 Potassium 5.0 Chloride 102 Carbon Dioxide 28 BUN 19 H Creatinine 1.12 H Glucose 121 H Calcium 8.4 L Urine 07/04/18 Range/Units 10:30 Urine Color Yellow (Yellow) Urine Appearance Clear (Clear) Urine pH 7.0 (5.0-8.5) Ur Specific [place] 1.015 (1.005-1.030) Urine Protein Negative (Negative) Urine Glucose (UA) Negative (Negative) Assessment and Plan (1) DJD (degenerative joint disease) of knee Current visit: Yes Status: Acute Category: Medical Code(s): M17.10 - Unilateral primary osteoarthritis, unspecified knee (2) Obesity (BMI 30-39.9) Current visit: Yes Status: Acute Category: Medical Code(s): E66.9 - Obesity, unspecified (3) Anemia Current visit: Yes Status: Acute Qualifiers: Anemia type: unspecified type Qualified Code(s): D64.9 - Anemia, unspecified Category: Medical Code(s): D64.9 - Anemia, unspecified (4) Renal insufficiency Current visit: Yes Status: Acute Category: Medical Code(s): N28.9 - Disorder of kidney and ureter, unspecified
--- NOTE | 2018-07-06 13:13 | Progress Note ---
Subjective Date: 07/06/18 Time: 12:30 Principal diagnosis: Status post total knee arthroplasty, right Interval history: Patient is status post right total knee arthroplasty, postop day 2. Patient is sitting in a chair and says she is comfortable. She started physical therapy and mobilization and is progressing well. She reports some knee pain which is well controlled with medication. No history of any nausea or vomiting. No history of any cough, chest pain, shortness of breath or palpitations. Patient says she is eating and drinking well. PN: Obj Ex Vital signs: Temp Pulse Resp BP Pulse Ox 98.2 F 62 18 121/52 L 98 07/06/18 07:32 07/06/18 07:32 07/06/18 07:32 07/06/18 07:32 07/06/18 08:00 Narrative: Intake & Output 07/04/18 07/05/18 07/06/18 07/07/18 11:59 11:59 11:59 11:59 Intake Total 5985 / 5985 840 / 840 Output Total 1720 / 1720 1999 Balance 4265 / 4265 -1160 / -1160 Weight 485 lb 0.271 oz 228 lb 1 oz Exam: General appearance: alert, active, awake Cardiovascular: regular rate & rhythm, normal peripheral pulses Respiratory: No respiratory distress noted, speaks in full sentences ABD: soft and non tender Neuro: alert, awake, oriented x 3 On examination of the lower extremities the limb lengths are equal. On examination of the right knee the dressings are clean, dry and intact. I have removed the pressure bandage on the Silverlon dressing is intact. There is no evidence of any bleeding or discharge. Leg compartments are soft. Distal pulses are 2+. Capillary refill is brisk. Sensation intact light touch throughout. She is actively moving the ankle, foot and the toes. - Urinary Catheter Management Ross Cath placed during this visit: yes Urethral indwelling: Yes Reason for continuing: Surgical procedure Insertion date: 07/04/18 Insertion time: 10:30 Progress Note: A&P (1) S/P total knee arthroplasty Status: Acute Current Visit: Yes (2) DJD (degenerative joint disease) of knee Status: Acute Current Visit: Yes Assessment and Plan for All Diagnoses:: I have reviewed the clinical findings and progress with the patient. Continue PT/OT and mobilization as comfortable. Advised her to avoid placing pillow behind the knee; use knee immobilizer when weightbearing and walking until she regains full quadriceps control and is able to actively straight leg raise. Continue DVT prophylaxis and as needed pain medication. Care management looking into discharge planning. Patient is likely to go to a long-term facility tomorrow. Medical management as per Dr. Thompson.
--- NOTE | 2018-07-07 12:44 | Discharge Summary ---
General - General Admission date:: 07/04/18 Discharge date: 07/07/18 HPI HPI: Patient is a 52-year-old female with advanced degenerative joint disease of the right knee who is admitted to the hospital electively following an uncomplicated primary total knee arthroplasty on 07/04/2018. She has not responded well to conservative management including NSAID, Tylenol, and intra-articular injections in the past. She is using assistive walking devices. Total knee arthroplasty is indicated to reduce the risk of falls, improve her pain and mobility and quality of life. The surgical and nonsurgical alternatives were discussed in detail with the patient as well as the risks and benefits of the surgery. She previously had a successful total knee arthroplasty on the left side a few years ago by Dr. Peng in [place]. Please refer to my office note for full details. Hospital Course Hospital Course: Patient underwent an uncomplicated straightforward primary right total knee arthroplasty on 07/04/2018. Following surgery patient progressed well without any complications. Her postoperative check x-ray is satisfactory with good alignment and fixation of the components. She progressed rapidly with physical therapy and was able to mobilize using a walker. At the time of discharge she still has not regained good quadriceps control and was advised to mobilize with the knee immobilizer until she fully regains quadriceps control and is able to actively straight leg raise. Her pain is well controlled with as needed oral Lortab 5. The dressings were reduced on the second postoperative day and the wound is healthy and healing well. No signs of any erythema, induration or discharge. Patient was started on Xarelto 10 mg daily for DVT prophylaxis after surgery. Her neurovascular status in both lower extremities is intact. Pedal pulses 2+ bilaterally and fully sensate distally. No clinical evidence of DVT noted. Patient was cleared for discharge by physical therapy. On the day of discharge, the patient has been stable. Patient's vital signs have been stable throughout and she is afebrile at the time of discharge. She is being discharged to a longterm facility for rehab. During her admission to the hospital she was also seen by Dr. Thompson for management of medical problems. On the day of discharge Dr. Thompson has cleared her for discharge from a medical standpoint. Condition at discharge: improved and stable. Treatments and Procedures: Total knee arthroplasty, RIGHT knee; date of surgery 07/04/2018. Objective Vital signs: Temp Pulse Resp BP Pulse Ox 97.3 F L 76 18 109/59 L 95 07/07/18 08:00 07/07/18 08:00 07/07/18 08:00 07/07/18 08:00 07/07/18 08:00 no acute distress - *Routine HEENT Exam Head: Present: normocephalic, atraumatic Eye: Present: EOMI ENT: Present: mucous membranes moist - *Routine Neck Exam Present: supple, full ROM - *Routine Respiratory Exam Present: CTA bilaterally - *Routine Cardiovascular Exam Present: RRR, Normal S1, Normal S2 - *Routine Abdominal Exam Present: soft, normoactive bowel sounds. Absent: tenderness - *Routine Extremities Exam Comments: On examination of the right knee, Silverlon dressing is in place and is clean, dry and intact. There is no erythema or discharge. There is diffuse swelling and some tenderness over the knee as to be expected. Knee range of motion is 5- 70 of flexion. Distal pulses are 2+. Capillary refill is brisk. Sensation is intact to light touch throughout. Thigh and calf are soft and there is mild t enderness over the distal thigh. There is also 1+ edema of the right leg, ankle and foot. She demonstrates good range of foot and ankle movements. The quadriceps tendon is actively alyse. She is not able to actively straight leg raise at this time. - *Routine Skin Exam Present: intact, normal turgor - *Routine Neurological Exam Present: alert, oriented X3, CN II-XII intact - Routine Psychiatric Exam Present: normal affect, cooperative DS: Diagnosis - Discharge Diagnosis (1) DJD (degenerative joint disease) of knee Status: Acute (2) Obesity (BMI 30-39.9) Status: Acute (3) Anemia Status: Acute (4) Renal insufficiency Status: Acute Discharge Plan - Patient Discharge Instructions Patient Instructions: DI for Knee Replacement, DI for Surgical Site Infection - Follow up Plan Follow up with: Ralph Lau MD [Staff Physician] - 2 weeks Disposition: [facility] Home Medications: Home Medications Medication Instructions Recorded Confirmed Type albuterol sulfate HFA 90 2 puff INHALATION Q4-6H PRN 07/19/17 07/03/18 History mcg/actuation aerosol inhaler gabapentin 300 mg capsule 300 mg PO QID 07/19/17 07/05/18 History hydroxyzine pamoate 25 mg capsule 75 mg PO TID PRN #30 cap 07/19/17 07/03/18 Rx lamotrigine 200 mg tablet 200 mg PO BID tab 07/19/17 07/03/18 History levocetirizine 5 mg tablet 5 mg PO DAILY 07/19/17 07/05/18 History montelukast 10 mg tablet 10 mg PO DAILY 07/19/17 07/05/18 History omeprazole 40 mg capsule,delayed 40 mg PO BID cap 07/19/17 07/03/18 History release risperidone 1 mg tablet 1 mg PO 0800,1200 tab 07/19/17 07/05/18 History trazodone 150 mg tablet 150 mg PO HSP PRN 07/19/17 07/05/18 History Fluticasone Propionate [Flonase 2 spr NS DAILY 08/24/17 07/04/18 History 50mcg nasal spray 16gm] ibuprofen 800 mg tablet 800 mg PO BID PRN #60 tab 03/16/18 07/03/18 Rx Bisoprolol Fumarate [Bisoprolol 5 mg PO DAILY 04/17/18 07/03/18 History 5mg Tablet] pravastatin 20 mg tablet 20 mg PO DAILY #90 tab 05/01/18 07/03/18 Rx hydrochlorothiazide 25 mg tablet 25 mg PO QAM #30 tab 07/04/18 07/04/18 Rx Ascorbic Acid [Vitamin C 500mg 500 mg PO DAILY 07/05/18 07/05/18 History tablet] Baclofen [Lioresal 10mg tablet] 10 mg PO TID 07/05/18 07/05/18 History Calcium Carbonate/Vitamin D3 1 tab PO DAILY 07/05/18 07/05/18 History [Calcium 600 + Vit D Tablet] Cholecalciferol (Vitamin D3) 1,000 unit PO DAILY 07/05/18 07/05/18 History [Vitamin D3 1,000 Unit Cap] Estradiol 1 patch TD .2X/WEEK 07/05/18 07/05/18 History Ferrous Sulfate [Feosol] 325 mg PO DAILY 07/05/18 07/05/18 History Fluticasone/Salmeterol [Advair 1 puff IH BID 07/05/18 07/05/18 History 500/50mcg diskus] Lisinopril [Prinivil 20mg Tablet] 20 mg PO DAILY 07/05/18 07/05/18 History Multivit with Minerals/Herbs 1 each PO DAILY 07/05/18 07/05/18 History [Women's Biomultiple Tablet] Thiamine HCl [Vitamin B-1] 50 mg PO DAILY 07/05/18 07/05/18 History Tiotropium [place] [Spiriva 2 puffs IH DAILY 07/05/18 07/05/18 History Respimat] Vortioxetine Hydrobromide 20 mg PO DAILY 07/05/18 07/05/18 History [Trintellix] buPROPion HCl [Bupropion HCl Sr] 200 mg PO BID 07/05/18 07/05/18 History levothyroxine 50 mcg tablet 50 mcg PO DAILY #90 tab 07/05/18 Rx raNITIdine HCl [Ranitidine HCl] 300 mg PO HS 07/05/18 07/05/18 History risperiDONE [Risperdal 1mg Tablet] 3 mg PO HS 07/05/18 07/05/18 History Docusate Sodium [Docusate Sodium 100 mg PO BIDP PRN #20 capsule 07/07/18 Rx 100mg Cap] Hydrocod/Acet 5/325 mg [[place] 1 - 2 tab PO Q4HP PRN #60 tab 07/07/18 Rx 5/325mg tablet] Rivaroxaban [Xarelto 10mg tablet] 10 mg PO QPMWM #10 tablet 07/07/18 Rx Prescriptions/Medication Reconciliation: New Hydrocod/Acet 5/325 mg [[place] 5/325mg tablet] 1 - 2 tab PO Q4HP PRN #60 tab PRN Reason: Moderate To Severe Pain Docusate Sodium [Docusate Sodium 100mg Cap] 100 mg PO BIDP PRN #20 capsule PRN Reason: Constipation Rivaroxaban [Xarelto 10mg tablet] 10 mg PO QPMWM #10 tablet Continue albuterol sulfate HFA 90 mcg/actuation aerosol inhaler 2 puff INHALATION Q4- 6H PRN PRN Reason: breathing levocetirizine 5 mg tablet 5 mg PO DAILY gabapentin 300 mg capsule 300 mg PO QID omeprazole 40 mg capsule,delayed release 40 mg PO BID cap lamotrigine 200 mg tablet 200 mg PO BID tab trazodone 150 mg tablet 150 mg PO HSP PRN PRN Reason: Sleep risperidone 1 mg tablet 1 mg PO 0800,1200 tab hydroxyzine pamoate 25 mg capsule 75 mg PO TID PRN #30 cap PRN Reason: anxiety ibuprofen 800 mg tablet 800 mg PO BID PRN #60 tab PRN Reason: pain pravastatin 20 mg tablet 20 mg PO DAILY #90 tab levothyroxine 50 mcg tablet 50 mcg PO DAILY #90 tab montelukast 10 mg tablet 10 mg PO DAILY hydrochlorothiazide 25 mg tablet 25 mg PO QAM #30 tab Fluticasone Propionate [Flonase 50mcg nasal spray 16gm] 2 spr NS DAILY Bisoprolol Fumarate [Bisoprolol 5mg Tablet] 5 mg PO DAILY buPROPion HCl [Bupropion HCl Sr] 200 mg PO BID Estradiol 1 patch TD .2X/WEEK Baclofen [Lioresal 10mg tablet] 10 mg PO TID Tiotropium [place] [Spiriva Respimat] 2 puffs IH DAILY Calcium Carbonate/Vitamin D3 [Calcium 600 + Vit D Tablet] 1 tab PO DAILY Cholecalciferol (Vitamin D3) [Vitamin D3 1,000 Unit Cap] 1,000 unit PO DAILY Ascorbic Acid [Vitamin C 500mg tablet] 500 mg PO DAILY Lisinopril [Prinivil 20mg Tablet] 20 mg PO DAILY risperiDONE [Risperdal 1mg Tablet] 3 mg PO HS Thiamine HCl [Vitamin B-1] 50 mg PO DAILY Vortioxetine Hydrobromide [Trintellix] 20 mg PO DAILY Fluticasone/Salmeterol [Advair 500/50mcg diskus] 1 puff IH BID raNITIdine HCl [Ranitidine HCl] 300 mg PO HS Ferrous Sulfate [Feosol] 325 mg PO DAILY Multivit with Minerals/Herbs [Women's Biomultiple Tablet] 1 each PO DAILY Discontinued acetaminophen ER 650 mg tablet,extended release 650 mg PO Q8H PRN #90 tab PRN Reason: pain Indomethacin [Indocin 25mg capsule] 50 mg PO TIDP PRN PRN Reason: GOUT - Additional Information Additional Information: Our recommendations on discharge include physical therapy with weightbearing as tolerated and range of motion exercises of the right knee with emphasis on full extension and regaining flexion gradually. Note is made that the patient easily extends the knee to 0 degrees and flexes beyond 120 degrees while she was under anesthesia for the total knee arthroplasty with the wound closed. I have strongly advised her not to place any pillow behind the knee. But she can place a pillow under the ankle thus allowing gravity/weight of the leg help the knee into full extension. Patient was also advised to keep the leg elevated and ice the knee/use Polar pack on a regular basis. At this stage it is permissible to take a shower and allow the incision to get wet with shower water. After padding the area dry, the wound can be left open. The Silverlon dressing does not need changing for up to 7 days after surgery unless clinically indicated. Patient will follow up with me in the office in approximately 12-14 days for wound check and to cut the suture ends. Recommend 10 mg of Xarelto p.o. daily for 10 days for DVT prophylaxis. Please feel free to call our office at [phone] or via the hospital scroll machine operator [phone] for any orthopaedic questions or concerns.
--- NOTE | 2018-07-08 09:36 | Progress Note ---
Internal Medicine - PN: Subj *Date: 07/08/18 *Time: 09:34 Interval history: doing better - has anal cleft reddness - no hemmorroid Exam Vital signs and Labs for Last 24 Hours: Temp Pulse Resp BP Pulse Ox 98.2 F 53 L 20 93/52 L 98 07/08/18 08:26 07/08/18 08:26 07/08/18 08:26 07/08/18 08:26 07/08/18 08:26 I & O for Last 24 hours: Intake & Output 07/05/18 07/06/18 07/07/18 07/08/18 11:59 11:59 11:59 11:59 Intake Total 5985 / 5985 840 / 840 960 / 960 1080 / 1080 Output Total 1720 / 1720 1999 / 1999 700 / 700 Balance 4265 / 4265 -1160 / -1160 260 / 260 1080 / 1080 Weight 228 lb 1 oz 241 lb 8 oz - Constitutional no acute distress, obese - *Routine HEENT Exam Head: Present: normocephalic Eye: Present: EOMI, PERRL ENT: Present: mucous membranes dry - *Routine Neck Exam Absent: JVD - *Routine Respiratory Exam Present: CTA bilaterally - *Routine Cardiovascular Exam Present: RRR - *Routine Abdominal Exam Present: soft - *Routine Extremities Exam Comments: s/p knee replacement - *Routine Skin Exam Present: rash (reddness anal cleft ) - *Routine Neurological Exam Present: alert, CN II-XII intact - Routine Psychiatric Exam Present: normal affect Assessment and Plan (1) DJD (degenerative joint disease) of knee Current visit: Yes Status: Acute Category: Medical Code(s): M17.10 - Unilateral primary osteoarthritis, unspecified knee (2) Obesity (BMI 30-39.9) Current visit: Yes Status: Acute Category: Medical Code(s): E66.9 - Obesity, unspecified (3) Anemia Current visit: Yes Status: Acute Qualifiers: Anemia type: unspecified type Qualified Code(s): D64.9 - Anemia, unspecified Category: Medical Code(s): D64.9 - Anemia, unspecified (4) Renal insufficiency Current visit: Yes Status: Acute Category: Medical Code(s): N28.9 - Disorder of kidney and ureter, unspecified (5) Rash and nonspecific skin eruption Current visit: Yes Status: Acute Category: Medical Code(s): R21 - Rash and other nonspecific skin eruption
[2018-07-08 10:18] LABS: Basophils # 0.1 K/mm3 (0-0.2); Basophils % 0.7 % (0.1-2.0); Eosinophils # 0.2 K/mm3 (0.0-0.4); Eosinophils % 3.1 % (0.1-12.0); Hemoglobin 10.5 g/dL (12.2-16.2); Lymphocytes # 1.2 K/mm3 (0.7-4.5); Lymphocytes % 16.5 % (10-50); Mean Corpuscular Hemoglobin 32.7 pg (27.0-31.2); Mean Corpuscular Volume 99.3 fl (81-99); Mean Platelet Volume 7.5 fl (7.4-10.4); Monocytes # 0.3 K/mm3 (0.1-1.0); Monocytes % 3.9 % (1.7-9.3); Neutrophils # 5.7 K/mm3 (1.8-7.8); Neutrophils % 75.9 % (37.0-80.0); Platelet Count 222 K/mm3 (142-424); Red Blood Count 3.22 M/mm3 (4.20-5.40); Red Cell Distribution Width 14.1 % (11.5-17.5); White Blood Count 7.5 K/mm3 (4.8-10.8)
[2018-07-08 10:22] LABS: Anion Gap 10.4 mEq/L (5-15); Potassium 4.4 mmoL/L (3.5-5.1)
--- NOTE | 2018-07-08 11:49 | Progress Note ---
Subjective Date: 07/08/18 Time: 10:30 Principal diagnosis: Status post total knee arthroplasty, right Interval history: The patient is doing well this morning, reports little pain. Ambulating well with knee immobilizer, denies weakness, numbness or tingling in the RLE. No chest pain or shortness of breath. PN: Obj Ex Vital signs: Temp Pulse Resp BP Pulse Ox 98.2 F 53 L 20 93/52 L 98 07/08/18 08:26 07/08/18 08:26 07/08/18 08:26 07/08/18 08:26 07/08/18 08:26 Narrative: AAOx3, NAD RLE dressing c/d/i; knee immobilizer in place minimal soft tissue swelling R knee, no ecchymosis +DF/PF/EHL RLE SILT distally in all distributions palpable pedal pulses RLE calf soft, non-tender RLE, negative Homans - Urinary Catheter Management Ross Cath placed during this visit: yes Urethral indwelling: Yes Reason for continuing: Not indwelling catheter Insertion date: 07/04/18 Insertion time: 10:30 Progress Note: A&P (1) DJD (degenerative joint disease) of knee Status: Acute Current Visit: Yes (2) Obesity (BMI 30-39.9) Status: Acute Current Visit: Yes (3) Anemia Status: Acute Current Visit: Yes (4) Renal insufficiency Status: Acute Current Visit: Yes (5) Rash and nonspecific skin eruption Status: Acute Current Visit: Yes Assessment and Plan for All Diagnoses:: 52yo F POD #4 s/p R TKA -- continue post-operative course per Dr. Lau's orders: pain control with oral meds, ambulate with RW, continue PT/OT, SCD LLE, encourage IS -- dispo planning: to [facility] Tuesday pending approval
--- NOTE | 2018-07-09 09:29 | Progress Note ---
Subjective Date: 07/09/18 Time: 09:00 Principal diagnosis: Status post total knee arthroplasty, right Interval history: The patient is doing well this morning. She is using the restroom when I enter, has been walking to and from the toilet with no issues. Denies new problems today. PN: Obj Ex Vital signs: Temp Pulse Resp BP Pulse Ox 98.2 F 76 16 109/57 L 93 L 07/09/18 08:00 07/09/18 08:00 07/09/18 08:00 07/09/18 08:00 07/09/18 08:00 - Routine Extremities Exam Comments: exam unchanged RLE dressing c/d/i walking well with walker/knee immobilizer no motor/sensory deficits +DF/PF/EHL RLE SILT distally RLE calf soft, non-tender RLE - Urinary Catheter Management Ross Cath placed during this visit: yes Urethral indwelling: Yes Reason for continuing: Not indwelling catheter Insertion date: 07/04/18 Insertion time: 10:30 Progress Note: A&P (1) DJD (degenerative joint disease) of knee Status: Acute Current Visit: Yes (2) Obesity (BMI 30-39.9) Status: Acute Current Visit: Yes (3) Anemia Status: Acute Current Visit: Yes (4) Renal insufficiency Status: Acute Current Visit: Yes (5) Rash and nonspecific skin eruption Status: Acute Current Visit: Yes Assessment and Plan for All Diagnoses:: 52yo F POD 5 s/p R TKA -- continue current post-op management -- pain control -- PT/OT, WBAT RLE -- anticipate d/c to SNF tomorrow
--- NOTE | 2018-07-09 13:16 | Progress Note ---
Internal Medicine - PN: Subj *Date: 07/09/18 *Time: 13:14 Interval history: doing ok but has gas and crampy abd pain Exam Vital signs and Labs for Last 24 Hours: Temp Pulse Resp BP Pulse Ox 98.2 F 76 16 109/57 L 92 L 07/09/18 08:00 07/09/18 08:00 07/09/18 08:00 07/09/18 08:00 07/09/18 10:03 I & O for Last 24 hours: Intake & Output 07/07/18 07/08/18 07/09/18 07/10/18 11:59 11:59 11:59 11:59 Intake Total 960 / 960 1080 / 1080 600 / 600 Output Total 700 / 700 600 / 600 Balance 260 / 260 1080 / 1080 0 / 0 Weight 241 lb 8 oz - Constitutional no acute distress, obese - *Routine HEENT Exam Head: Present: normocephalic Eye: Present: EOMI, PERRL ENT: Present: mucous membranes dry - *Routine Neck Exam Present: supple - *Routine Respiratory Exam Present: CTA bilaterally - *Routine Cardiovascular Exam Present: RRR, murmur - *Routine Abdominal Exam Present: soft - *Routine Extremities Exam Comments: s/p knee - *Routine Skin Exam Present: intact - *Routine Neurological Exam Present: alert, oriented X3, CN II-XII intact - Routine Psychiatric Exam Present: normal affect Assessment and Plan (1) DJD (degenerative joint disease) of knee Current visit: Yes Status: Acute Category: Medical Code(s): M17.10 - Unilateral primary osteoarthritis, unspecified knee (2) Obesity (BMI 30-39.9) Current visit: Yes Status: Acute Category: Medical Code(s): E66.9 - Ob esity, unspecified (3) Anemia Current visit: Yes Status: Acute Qualifiers: Anemia type: unspecified type Qualified Code(s): D64.9 - Anemia, unspecified Category: Medical Code(s): D64.9 - Anemia, unspecified (4) Renal insufficiency Current visit: Yes Status: Acute Category: Medical Code(s): N28.9 - Disorder of kidney and ureter, unspecified (5) Rash and nonspecific skin eruption Current visit: Yes Status: Acute Category: Medical Code(s): R21 - Rash and other nonspecific skin eruption
--- NOTE | 2018-07-10 12:10 | Progress Note ---
Subjective Date: 07/10/18 Time: 10:30 Principal diagnosis: Status post total knee arthroplasty, right Interval history: The patient is doing really well this morning. She's had a shower and is dressed in comfortable PJs in bed. Pain is improving, some soreness over superolateral knee. No drainage from dressing, no numbness/tingling in foot. Overall she is doing well and ready for d/c to SNF today. PN: Obj Ex Vital signs: Temp Pulse Resp BP Pulse Ox 98.3 F 79 18 118/73 92 L 07/10/18 08:00 07/10/18 08:00 07/10/18 08:00 07/10/18 08:00 07/10/18 08:00 Narrative: AAO x 3, NAD RLE dressing c/d/i; dressing removed, incision c/d/i w/o periwound erythema or drainage, no ecchymosis [place] dressing placed on wound +DF/PF/EHL RLE SILT distally RLE in all distributions palpable pedal pulses RLE, foot warm and well-perfused calf soft, non-tender, negative cee's - Urinary Catheter Management Ross Cath placed during this visit: yes Urethral indwelling: Yes Reason for continuing: Not indwelling catheter Insertion date: 07/04/18 Insertion time: 10:30 Progress Note: A&P (1) DJD (degenerative joint disease) of knee Status: Acute Current Visit: Yes (2) Obesity (BMI 30-39.9) Status: Acute Current Visit: Yes (3) Anemia Status: Acute Current Visit: Yes (4) Renal insufficiency Status: Acute Current Visit: Yes (5) Rash and nonspecific skin eruption Status: Acute Current Visit: Yes Assessment and Plan for All Diagnoses:: 52yo F POD #6 s/p R TKA -- continue post-operative care as dictated by Dr. Lau -- WBAT RLE with RW -- dressing changed today, change daily/PRN -- continue PT/OT at SNF -- ok to d/c to SNF once approval processed and bed/transport available -- f/u with Dr. Lau as scheduled
== END 2018-07-10 18:21 | disposition home health service (06) | DRG 470 ==
LOC: OR 08:11 → 2ND 08:14
PROVIDERS: ADMIT Orthopaedic Surgery; ATTEND Orthopaedic Surgery
CPT/HCPCS: 36415; 71101; 73560; 80048; 81001; 85007; 85025; 86850; 94640; 94761; 96374; 97110; 97116; 97161; 97530; 99201; C1713; C1765; C1776; J0697; J2405

== ENCOUNTER 2018-08-30 15:00 | Outpatient (RCR) | payer MEDICARE, MEDICAID, SELFPAY ==
--- NOTE | 2018-08-21 08:39 | HMH.PTOPWND ---
Rehab Outpt Wound Evaluation Rehab OP Wound Evaluation Start: 08/21/18 08:29 Freq: Status: Active Protocol: Document 08/21/18 08:29 WESLEY (Rec: 08/21/18 08:38 PHORNE [id number]) Electronically Signed By Ashish Moore, YASH 08/21/18 08:29 Subjective/History History History Pt is a 52 yowf who presents with right buttock decubitus ulcer x ~ 7 wks S/P Right TKA. She reports a blister formed while she was in the hospital and then became an open sore with severe tenderness to palpation. She reports home health was dressing the wound for her until this time. PMH: asthma, CAD, HTN, HL, pacemaker. Wound Eval Wound Right Medial Buttock Wound Type Pressure Ulcer Is This a Chronic Wound No Wound Staging Stage II Query Text:Stage I - Unbroken, red skin, no blanching. Stage II - Skin broken, superficial skin loss involving epidermis alone or also dermis. Partial loss of skin layers. Stage III - Pressure area involves epidermis, dermis and subcutaneous tissue, full thickness skin loss. Stage IV - Pressure area involves epidermis, subcutaneous tissue, bone and other supportive tissue. Full thickness skin loss with extensive destruction of underlying tissue and structures. Wound Length (cm) 3.4 Wound Width (cm) 1.0 Wound Bed Appearance [place] Wound Margins Description Well Defined Surrounding Tissue Appearance [place] Edema Degree None Query Text:1+ Trace, Barely Detectable, Rebound 15-30 seconds 2+ Moderate, Slight Indentation, Rebound 10-20 seconds 3+ Deep, Deeper Indentation, Rebound > 30 seconds 4+ Very Deep, Rebound > 60 seconds Drainage Amount None Wound Topical Solution/Irrigant Saline Irrigant Primary Dressing Hydrocolloid Dressing Change Patient Tolerance Tolerated Well Wound Problems/Impairments Impairments Problems/Impairmments Palpation Tenderness Wound Care Needs Subjective C/O Pain Impaired Self Care/Self Management Prognosis Rehab Potential Good Clinical Impression Consistent with Diagnosis Yes Short Term Goals Number
== END 2018-08-30 15:05 | disposition home or self-care (01) ==
LOC: PT 15:00
PROVIDERS: Visit Provider Orthopaedic Surgery
DX: L89.132 Pressure ulcer of right lower back, stage 2 (principal)
CPT/HCPCS: 97162; 97597

== ENCOUNTER → 2018-10-10 09:52 | Outpatient (CLI) | payer MEDICARE, MEDICAID, SELFPAY ==
--- NOTE | 2018-10-10 09:58 | XR_ITS ---
XR knee RT 2V HISTORY: Follow-up knee replacement ITS.REASON: ap lateral ; RT TKA dos 07/04/18 ORDERING PHYSICIAN: Ralph Lau MD PATIENT AGE: 52 years COMPARISON: 08/07/2018 FINDINGS: Good alignment status post total knee arthroplasty without evidence of complications. IMPRESSION: Good alignment status post knee replacement
== END ==
PROVIDERS: PCP Emergency Medicine; Visit Provider Orthopaedic Surgery
DX: Z96.651 Presence of right artificial knee joint (principal)
CPT/HCPCS: 73560

== ENCOUNTER 2018-10-24 10:00 | Outpatient (RCR) | payer MEDICARE, MEDICAID, SELFPAY ==
--- NOTE | 2018-08-10 10:52 | HMH.PTOPEV ---
PT Outpatient Evaluation Rehab PT Outpatient Evaluation Start: 08/10/18 10:11 Freq: Status: Active Protocol: Document 08/10/18 10:38 HUNG (Rec: 08/10/18 10:52 HUNG [id number]) Electronically Signed By Luke Alex, PT 08/10/18 10:38 Outpatient Therapy Subjective History Subjective History Patient is a 52 year old female presenting to outpatient PT with reports of R post-surgical knee pain S/P R TKA performed on 07/04/18 (S/P 5w 2 days). Pt reports chronic R knee pain starting after a fall landing directly on R right knee at [employer]. She has been receiving home health PT services since discharge from [facility]. She most recently had to visit the ER 2 days ago where she was diagnosed with RLE cellulitis. Currently medicated with Keflex. Pt to follow up with ortho MD today. Pt also reports that she has a sacral pressure ulcer. Comorbidites include L TKA, pacemaker and elevated BMI. Chief Complaint Pain Stiff Swelling Weakness Symptom Type Ache Burning Shooting Symptoms Relieved By Rest/Positioning Ice Prescription Meds Symptoms Aggravated By Standing Physical Activity Walking Prior Functional Limitations None Current Functional Limitations Lifting Housework Driving Standing Squatting Recreation Activity Walking Stairs Balance Symptom Description Constant but Variable Level of pain today (0-10) 4 Pain scale - at its best (0-10) 2 Pain scale - at its worst (0-10) 8 Hip/Knee Eval Gait Observation General Gait Pattern Observation Antalgic Gait Decrease Weight Bear (R) Assistive Device
== END 2018-10-24 10:05 | disposition home or self-care (01) ==
LOC: PT 10:00
PROVIDERS: Visit Provider Orthopaedic Surgery
DX: Z96.651 Presence of right artificial knee joint (principal)
CPT/HCPCS: 97010; 97014; 97016; 97018; 97110; 97140; 97163; G0283

== ENCOUNTER → 2019-01-09 08:40 | Outpatient (CLI) | payer MEDICARE, MEDICAID, SELFPAY ==
--- NOTE | 2019-01-09 08:43 | XR_ITS ---
PROCEDURE: XR KNEE RT 2V CLINICAL INDICATION: sp RT tka, dos 07/04/18 COMPARISON: [id number] XR knee RT 3V from 08/07/2018 TECHNIQUE: AP and lateral FINDINGS: Status post total knee replacement with good alignment and no significant change. IMPRESSION: No change s/p total knee replacement Dictated by: Octavio Dickson MD 01/10/2019 07:12 Signed by: <Electronically signed by Octavio Dickson MD in [place]> 01/10/2019 07:12
== END ==
PROVIDERS: PCP Emergency Medicine; Visit Provider Orthopaedic Surgery
DX: Z96.651 Presence of right artificial knee joint (principal)
CPT/HCPCS: 73560

== ENCOUNTER → 2019-01-17 08:41 | Outpatient (CLI) | payer MEDICARE, MEDICAID, SELFPAY ==
--- NOTE | 2019-01-17 08:43 | MM_ITS ---
PROCEDURE: MM DIG SCREENING MAMM BI W/CAD CLINICAL INDICATION: Routine Screening Mammogram There is no personal or family history of breast cancer. COMPARISON: DMSB DIG MAMM-SCREEN ENRIQUE W/CAD from 10/26/2016 SCBI MM Dig screening mamm BI w/CAD from 01/11/2018 DXRT MM Dig mamm DX unilat RT CAD from 01/20/2018 TECHNIQUE: Standard CC and MLO images were obtained. R2 CAD reviewed. FINDINGS: Scattered fibroglandular densities are seen throughout both breasts and the findings of bilateral and symmetrical. There is a metallic pacemaker device overlying the axillary tail left breast. There are scattered benign appearing microcalcifications in each breast. There is faint arterial calcification in each breast. Lesion and no suspicious microcalcifications. There are fatty replaced nodes in both axilla. IMPRESSION: Fibrofatty parenchyma with no suspicious lesion seen BI-RAD Category: 2 Benign Finding(s) FOLLOW-UP: 1YR 1 Year Follow-up (A letter has been sent to the patient regarding results of the study.) Dictated by: Dr. Keron Serna MD 01/19/2019 12:12 Signed by: <Electronically signed by Dr. Keron Serna MD in [place]> 01/19/2019 12:12
== END ==
PROVIDERS: PCP Emergency Medicine; Visit Provider Nurse Practitioner Obstetrics & Gynecology
DX: Z12.31 Encounter for screening mammogram for malignant neoplasm of breast (principal)
CPT/HCPCS: 77067

== ENCOUNTER → 2019-03-23 14:14 | Outpatient (CLI) | payer MEDICARE, MEDICAID, SELFPAY | PROVIDERS: Visit Provider Nurse Practitioner Family | DX: L02.92 Furuncle, unspecified (principal) | CPT/HCPCS: 87070; 87077; 87186; 87205 ==

== ENCOUNTER → 2019-03-27 10:54 | Outpatient (CLI) | payer MEDICARE, MEDICAID, SELFPAY ==
--- NOTE | 2019-03-27 11:16 | XR_ITS ---
PROCEDURE: XR KNEE RT 2V CLINICAL INDICATION: sp rt total knee arthroplasty Right knee pain COMPARISON: [id number] XR knee RT 4V from 06/08/2018 [id number] XR knee RT 2V from 07/04/2018 [id number] XR knee RT 3V from 08/07/2018 XR KNEE RT 2V from 01/09/2019 FINDINGS: Status post total knee arthroplasty. Good alignment with no evidence of orthopedic complication with no significant change Other findings:None. IMPRESSION: Good alignment status post total knee arthroplasty no change with no acute finding Dictated by: Octavio Dickson MD 03/27/2019 17:42 Electronically signed by Octavio Dickson MD in [place] 03/27/2019 17:42
== END ==
PROVIDERS: PCP Emergency Medicine; Visit Provider Urology
DX: M25.561 Pain in right knee (principal); Z96.651 Presence of right artificial knee joint
CPT/HCPCS: 36415; 73560; 80048; 80061; 80076; 83880; 84484; 85025; 85651; 86140

== ENCOUNTER → 2019-03-27 15:06 | Outpatient (CLI) | payer MEDICARE, MEDICAID, SELFPAY ==
[2019-03-27 11:45] LABS: Alanine Aminotransferase 40 U/L (12-78); Albumin Level 3.4 gm/dL (3.4-5.0); Alkaline Phosphatase 78 U/L (46-116); Anion Gap 11.6 mEq/L (5-15); Aspartate Amino Transferase 21 U/L (15-37); Bilirubin,Direct 0.1 mg/dL (0.0-0.2); Bilirubin,Indirect 0.3 mg/dL (0.0-0.9); Bilirubin,Total 0.4 mg/dL (0.2-1.0); Blood Urea Nitrogen 10 mg/dL (7-18); Calcium 9.3 mg/dL (8.5-10.1); Carbon Dioxide 29 mmol/L (21.0-32.0); Chloride 105 mmol/L (98-107); Chol/HDL Ratio 4.8 (1-3.5); Cholesterol 157 mg/dL (140-200); Creatinine,Serum 0.88 mg/dL (0.55-1.02); Estimated Glomerular Filt Rate 67 ml/min (>60); GFR (African American) 82 ML/MIN (>60); Glucose 103 mg/dL (74-106); HDL Cholesterol 33 mg/dL (29-89); LDL Cholesterol 52 mg/dL (0-130); Potassium 4.6 mmoL/L (3.5-5.1); Sodium 141 mmol/L (136-145); Total Protein,Serum 6.7 gm/dL (6.4-8.2); Triglycerides 362 mg/dL (30-200); Troponin I < 0.02 ng/ml (0.00-0.06); VLDL Cholesterol 72 mg/dL (0-40)
[2019-03-27 15:21] LABS: Basophils # 0.1 K/mm3 (0-0.2); Basophils % 0.8 % (0.1-2.0); Eosinophils # 0.3 K/mm3 (0.0-0.4); Hematocrit 41.8 % (37.0-47.0); Hemoglobin 13.4 g/dL (12.2-16.2); Lymphocytes # 2.2 K/mm3 (0.7-4.5); Lymphocytes % 22.6 % (10-50); Mean Corpuscular HGB Conc 32.1 g/dL (31.8-35.4); Mean Corpuscular Hemoglobin 32.9 pg (27.0-31.2); Mean Corpuscular Volume 102.5 fl (81-99); Mean Platelet Volume 7.9 fl (7.4-10.4); Monocytes # 0.5 K/mm3 (0.1-1.0); Monocytes % 4.9 % (1.7-9.3); Neutrophils # 6.7 K/mm3 (1.8-7.8); Neutrophils % 68.7 % (37.0-80.0); Platelet Count 222 K/mm3 (142-424); Red Blood Count 4.07 M/mm3 (4.20-5.40); Red Cell Distribution Width 12.8 % (11.5-17.5); White Blood Count 9.8 K/mm3 (4.8-10.8)
[2019-03-27 15:40] LABS: C-Reactive Protein < 0.2 mg/dL (0.0-0.9)
[2019-03-27 15:49] LABS: Erythrocyte Sedimentation Rate 26 mm/hr (0-30)
== END ==
PROVIDERS: Urology; Visit Provider Orthopaedic Surgery
DX: R06.02 Shortness of breath (principal); R07.9 Chest pain, unspecified; B99.9 Unspecified infectious disease
CPT/HCPCS: 36415; 80048; 80061; 80076; 83880; 84484; 85025; 85651; 86140

== ENCOUNTER → 2019-04-03 07:57 | Outpatient (CLI) | payer MEDICARE, SELFPAY ==
--- NOTE | 2019-04-03 | CA_ITS ---
APPROVED REPORT Exam: Pharmacologic Technologist: Meaghan Garcia, Ht: 5 ft 4 in Wt: 220 lbs BSA: 2.04 m2 HR: 60 bpm BP: 161/68 mmHg Rhythm: SINUS RHYTHM Indications: CP,SOA,PALPITATIONS,FATIGUE Medical History Medical History: HTN, Hyperlipidemia Medications: Lisinopril,,,,, Pravastatin,,,,, Trazadone,,,,, Ranitidine,,,,, HCTZ,,,,, ADVAIR,,,,, MVA,,,,, BuPROPION,,,,, Zofran,,,,, Allergies: CEFACLOR,SULFA Cardiac Risk Factors: HTN, Hyperlipidemia Stress Test Details Test: LEXISCAN HR Resting HR: 60 bpm Max Heart Rate (APMHR): 168 bpm Max HR Achieved: 82 bpm Target HR (85% APMHR): 142 bpm % of APMHR: 48 Recovery HR: 75 bpm BP Resting BP: 161/68 mmHg Max BP: 161/68 mmHg Recovery BP: 121.0/78.0 mmHg ECG Resting ECG: SINUS RHYTHM Clinical Exercise duration: 04:05 min Highest Stage Achieved: Stress ECG Conclusion LEXISCAN PORTION COMPLETED. PT C/O NAUSEA WITH NO VOMITING AT PEAK INFUSION. RESOLVED IN RECOVERY. DURING INFUSION PATIENT HAD NO CHEST PAIN,NO SOB,POSITIVE FOR NAUSEA,NO VOMITING. RESOLVED IN RECOVERY. NO ECTOPY NOTED. LESS THAN 1.5MM ST DEPRESSION. IMAGES TO FOLLOW. Test Summary REST . . . . . . . Sitting REST 04:13 . . 60 . 161/ 68 . . Stage 1 01:00 . . 74 . . . . Stage 2 01:00 . . 81 . 106/ 60 . . Stage 3 01:00 . . 79 . 110/ 61 . . Stage 4 01:00 . . 80 . 107/ 68 . . Stage 4 01:05 . . 78 . 107/ 68 . Stop exercise at 04:05 RECOVERY 01:00 . . 77 . . . . RECOVERY 02:00 . . 75 . 121/ 78 . . RECOVERY 03:00 . . 78 . 117/ 70 . . RECOVERY 04:00 . . 75 . 117/ 70 . . RECOVERY 04:16 . . 77 . 124/ 70 . . Electronically signed by : Mark Vasquez, 04/04/2019 05:34:00
--- NOTE | 2019-04-03 07:58 | NM_ITS ---
APPROVED REPORT Exam: Nuclear Stress Test Indication: SOB, Palpitations, Fatigue, HTN, Family history, Pacemaker Patient Location: Outpatient Stress Tech: Radha NM Tech:Mimi Angeles, ARRT, RT (R)(N) Ht: 5 ft 4 in Wt: 220 lbs Bra Size: 50DD HR: 60 bpm BP: 161/68 mmHg BSA: 2.04 m2 BMI: 37.7 History: SOB, Palpitations, Fatigue, HTN, Family history, Pacemaker Procedure: Patient received a 0.4 mg of intravenous Lexiscan, resting heart rate 60 bpm, resting blood pressure 161/68 mmHg, with Lexiscan maximum heart rate achived was 80 bpm which is Less than 85 % of the maximum predicted heart rate and blood pressure was 117/64 mmHg. With Lexiscan, patient denied any complaint of chest pain. Electrocardiogram Resting electrocardiogram shows sinus rhythm, with Lexiscan less than 1.[address] segment depression noted from the baseline EKG. The EKG portion of the Lexiscan Myoview is nondiagnostic. Cardiac Stress and Resting SPECT Images: Cardiac Stress and Resting SPECT images were obtained using technetium 99m Myoview 32.0 mCi stress and 9.80 mCi at rest. Gated SPECT for analysis of segmental wall motion and calculation of the ejection fraction also done. Cardiac stress and resting SPECT images show uniform myocardial activity without segmental perfusion abnormality, computer derived ejection fraction is 61% with no regional wall motion abnormality, right ventricle is normal size and contractility. Conclusion: 1. The EKG portion of the Lexiscan Myoview is nondiagnostic. 2. No scintigraphic evidence of reversible ischemia seen, computer derived ejection fraction is 61% with no regional wall motion abnormality, right ventricle is normal size and contractility. 3. Normal Lexiscan Myoview study. Electronically signed by : Mark Vasquez, 04/04/2019 05:36:11
--- NOTE | 2019-04-03 08:33 | HMH.ITSHM ---
Current Home Medications as stated by this patient Garret Simon or human resources representative. []ZOFRAN MULTIVIATMIN ADVAIR VITAMIN D3 FERROUS SULFATE TRAZODONE RISPERIDONE RANITIDINE PRAVASTATIN OMEPRAZOLE MONTELUKAST MINOCYCLINE LISINOPRIL LEVOTHYROXINE LAMOTRIFINE HCTZ GABAPENTIN ESTRADIOL BUPROPION BISOPROLOL ALBUTEROL TRINTELLIX SPIRIVA VITAMIN B CALCIUM
== END ==
PROVIDERS: PCP Emergency Medicine; Visit Provider Urology
DX: R07.9 Chest pain, unspecified (principal)
CPT/HCPCS: 78452; 93017; A9502; J2785

== ENCOUNTER → 2019-06-14 13:41 | Outpatient (CLI) | payer MEDICARE, SELFPAY ==
[2019-06-15 14:38] LABS: Free T4 (Free Thyroxine) 0.99 ng/dl (0.76-1.46); Thyroid Stimulating Hormone 2.32 uIU/ml (0.358-3.740)
[2019-06-16 11:04] LABS: Vitamin D 25 Hydroxy 32.9 ng/mL (30.0-100.0)
== END ==
PROVIDERS: Visit Provider Nurse Practitioner Family
DX: R53.83 Other fatigue (principal)
CPT/HCPCS: 82652; 84439; 84443

== ENCOUNTER → 2019-08-15 14:55 | Outpatient (CLI) | payer MEDICARE, MEDICAID, SELFPAY ==
--- NOTE | 2019-08-15 15:02 | XR_ITS ---
PROCEDURE: XR KNEE RT 2V CLINICAL INDICATION: 1 year RT TKA, sx 07/04/18 Follow-up total knee replacement COMPARISON: KNEELMRT XR knee RT 2V from 07/04/2018 [id number] XR knee RT 3V from 08/07/2018 XR KNEE RT 2V from 01/09/2019 XR KNEE RT 2V from 03/27/2019 FINDINGS: Status post total knee replacement. There is good alignment with no evidence of orthopedic complication. IMPRESSION: No change status post total knee replacement with good alignment Dictated by: Octavio Dickson MD 08/15/2019 16:15 Electronically signed by Octavio Dickson MD in [place] 08/15/2019 16:15
== END ==
PROVIDERS: PCP Emergency Medicine; Visit Provider Orthopaedic Surgery
DX: Z96.659 Presence of unspecified artificial knee joint (principal)
CPT/HCPCS: 73560

== ENCOUNTER → 2019-08-15 15:52 | Outpatient (CLI) | payer MEDICARE, MEDICAID, SELFPAY ==
[2019-08-15 16:29] LABS: Basophils # 0.1 K/mm3 (0-0.2); Basophils % 0.7 % (0.1-2.0); Eosinophils # 0.2 K/mm3 (0.0-0.4); Hematocrit 40.9 % (37.0-47.0); Hemoglobin 13.4 g/dL (12.2-16.2); Lymphocytes # 2.4 K/mm3 (0.7-4.5); Lymphocytes % 31.8 % (10-50); Mean Corpuscular HGB Conc 32.7 g/dL (31.8-35.4); Mean Corpuscular Hemoglobin 32.7 pg (27.0-31.2); Mean Platelet Volume 7.7 fl (7.4-10.4); Monocytes # 0.3 K/mm3 (0.1-1.0); Monocytes % 4.3 % (1.7-9.3); Neutrophils # 4.6 K/mm3 (1.8-7.8); Neutrophils % 60.2 % (37.0-80.0); Platelet Count 261 K/mm3 (142-424); Red Blood Count 4.09 M/mm3 (4.20-5.40); Red Cell Distribution Width 13.1 % (11.5-17.5); White Blood Count 7.6 K/mm3 (4.8-10.8)
[2019-08-15 18:40] LABS: C-Reactive Protein 2.3 mg/L (0-4)
[2019-08-15 19:46] LABS: Erythrocyte Sedimentation Rate 67 mm/hr (0-30)
== END ==
PROVIDERS: Visit Provider Orthopaedic Surgery
DX: M25.561 Pain in right knee; Z96.651 Presence of right artificial knee joint
CPT/HCPCS: 36415; 73560; 85025; 85651; 86140

== ENCOUNTER → 2019-08-17 15:32 | Outpatient (CLI) | payer MEDICARE, MEDICAID, SELFPAY ==
--- NOTE | 2019-08-17 15:32 | CT_ITS ---
PROCEDURE: CT CHEST WO CON CLINICAL INDICATION: Shortness of air, abnormal CXR Follow-up lung nodule COMPARISON: CHESTWO CT chest wo con from 08/04/2017 TECHNIQUE: Axial images obtained with sagittal and coronal reformats. All CT scans at the facility use one or more dose reduction, viz: automated exposure control, ma/kV adjustment per patient size (including targeted exams where dose is matched to indication, i.e. head), or iterative reconstruction technique. FINDINGS: HEART AND MEDIASTINAL STRUCTURES: Cardiac pacemaker device is present. No mediastinal or hilar mass or adenopathy. LUNGS AND PLEURAL SPACES: Calcified granuloma superior segment right lower lobe. There is a 3 mm noncalcified nodule in the right lower lobe just anterior to the calcified granuloma not significantly changed. Image 33 series 3 there is mild atelectatic change in the left lung base. The BONY STRUCTURES: No acute bony abnormalities apparent. UPPER ABDOMEN: Prior gastric bypass with postsurgical change ADDITIONAL FINDINGS: No other significant abnormalities. IMPRESSION: Stable CT appearance of the chest. No change with no acute finding. Stable right lower lobe nodules Dictated by: Octavio Dickson MD 08/18/2019 11:28 Electronically signed by Octavio Dickson MD in [place] 08/18/2019 11:28
== END ==
PROVIDERS: PCP Emergency Medicine; Visit Provider Nurse Practitioner Family
DX: R93.89 Abnormal findings on diagnostic imaging of other specified body structures (principal)
CPT/HCPCS: 71250

== ENCOUNTER 2019-09-08 05:32 | Emergency (ER) | payer MEDICARE, MEDICAID, SELFPAY ==
[2019-09-08 05:43] VITALS: BP 137/109; PULSE 66; RESP 17; TEMP 36.9; O2SAT 99; BMI 37.8
--- NOTE | 2019-09-08 05:52 | XR_ITS ---
PROCEDURE: XR KNEE RT 3V CLINICAL INDICATION: Knee giving out COMPARISON: XR KNEE RT 2V from 01/09/2019 FINDINGS: The femoral prosthesis is in good alignment and apposition to the tibial plateau prosthesis. There is no evidence of loosening. The opaque plug is seen along the undersurface of the patella and there is minimal spurring of the superior border of the patella. There is no acute fracture or loose body seen. There may be a small effusion within the suprapatellar bursa. IMPRESSION: Probable small joint effusion, otherwise stable and grossly intact total knee prosthesis Dictated by: Dr. Keron Serna MD 09/08/2019 09:[address] Keron Serna MD in [place] 09/08/2019 09:32
--- NOTE | 2019-09-08 06:37 | HMH.EDGENADL ---
ED Disposition Clinical Impression: S/P total knee arthroplasty Qualifiers: Laterality: right Qualified Code(s): Z96.651 - Presence of right artificial knee joint Knee pain, acute Qualifiers: Laterality: right Qualified Code(s): M25.561 - Pain in right knee Disposition: Home, Self-Care Condition on Discharge: Good Instructions: DI for Knee Pain Additional Instructions: use meds and call ortho and pcp tuesday Referrals: Brodie Thompson MD [Primary Care Provider] - - Critical Care Critical Care Time: No Attestation: On 09/08/19, the high probability of a clinically significant, sudden or life threatening deterioration of the following system(s) required my full and direct attention, intervention and personal management. The time I documented below is in addition to time spent performing reported procedures but includes the following listed in this critical care notation. Medical Decision Making - Medical Records Medical records reviewed: Yes: I reviewed the patient's medical records. - [place] Inquiry Pt receiving controlled substance: No Vital Signs: 09/08/19 05:43 Temperature 98.4 F Temperature Source Oral Pulse Rate [Right Brachial] 66 Respiratory Rate 17 Blood Pressure [Right Arm] 137/109 H Blood Pressure Mean [Right Arm] 118 Blood Pressure Source [Right Arm] Automatic Cuff Blood Pressure Position [Right Arm] Sitting 02 Sat by Pulse Oximetry 99 Oxygen Delivery Method Room Air - Lab Data Lab results reviewed: Yes: I reviewed the patient's lab results. Lab Results 09/08/19 06:50: WBC 9.6, RBC 3.94 L, Hgb 13.0, Hct 40.8, MCV 103.5 H, MCH 33.1 H, MCHC 31.9, RDW 13.3, Plt Count 223, MPV 7.9, Neut % (Auto) 62.9, Lymph % (Auto) 28.5, [place] % (Auto) 4.7, Eos % (Auto) 3.0, Baso % (Auto) 0.8, Neut # (Auto) 6.1, Lymph # (Auto) 2.8, P[place] # (Auto) 0.5, Eos # (Auto) 0.3, Baso # (Auto) 0.1 Result diagrams: 09/08/19 06:50 Orders (Tests/Meds): ORDERS Category Date Time Status Knee XR right 3 views [XR knee RT 3V] Stat Exams 09/08/19 05:52 Taken XR hip RT 2-3V w/pelvis Stat Exams 09/08/19 06:45 Taken Basic Metabolic Panel Stat Lab 09/08/19 06:50 Received C-Reactive Protein Stat Lab 09/08/19 06:50 Received Complete Blood Count Auto Diff Stat Lab 09/08/19 06:50 Results ESR [Erythrocyte Sedimentation Rate] Stat Lab 09/08/19 06:50 Results - Radiology Data #1 Image(s): Pelvis, Hip, Knee Image Reviewed: Yes I reviewed the patient's radiology image Preliminary Findings: No Fracture Seen General Adult HPI - General Chief complaint: PAIN Stated complaint: right knee giving out,had surgery here 07/18 Time Seen by Provider: 09/08/19 06:15 Mode of Arrival: Ambulatory Source of Information: Patient, Medical Record Limitations: No Limitations Description of Symptoms (Recalled from ER Triage Doc. by RN): Patient comes to the ED tonight with reports of her right knee giving out on her. Patient reports she had a total knee replacement back in June and she has conversed with Dr. Lau about her knee giving out and he suggested PT but she hasnt been able to schedule any because of the virus but tonight she just cant stand the pain anymore. - History of Present Illness HPI narrative: s/p rt knee pain after tkp - has hx of giving out no fever and no other c/o - has been seeing ortho - Onset (ago): day(s) Location: lower extremity Severity: moderate Associated symptoms: denies other symptoms Treatments prior to arrival: none - Related Data Home Medications Medication Instructions Recorded Confirmed albuterol sulfate 90 mcg/actuation 2 puff INHALATION Q4-6H PRN 07/19/17 08/15/19 aerosol inhaler lamotrigine 200 mg tablet 200 mg PO BID tab 07/19/17 08/15/19 levocetirizine 5 mg tablet 5 mg PO DAILY 07/19/17 08/15/19 montelukast 10 mg tablet 10 mg PO DAILY 07/19/17 08/15/19 omeprazole 40 mg capsule,delayed 40 mg PO BID cap 07/19/17 08/15/19 release trazodone 150 mg tablet 15
--- NOTE | 2019-09-08 06:45 | XR_ITS ---
PROCEDURE: XR HIP RT 2-3V W/PELVIS CLINICAL INDICATION: hip pain related to knee pain, patient had recent fall COMPARISON: No exams were available for comparison FINDINGS: No fracture or dislocation is evident. There is minor spurring of the acetabulum superior rim bilaterally. There is minor asymmetrical joint space narrowing of the right hip. The iliac bones and pubic bones appear intact. There is moderate sclerosis of the right SI joint, left SI joint is normal and the symphysis pubis is normal. IMPRESSION: Mild osteoarthritic change right hip, mild right sacroiliitis, no acute fracture seen Dictated by: Dr. Keron Serna MD 09/08/2019 09:[address] Keron Serna MD in [place] 09/08/2019 09:34
[2019-09-08 07:06] LABS: Basophils # 0.1 K/mm3 (0-0.2); Basophils % 0.8 % (0.1-2.0); Eosinophils # 0.3 K/mm3 (0.0-0.4); Hematocrit 40.8 % (37.0-47.0); Lymphocytes # 2.8 K/mm3 (0.7-4.5); Lymphocytes % 28.5 % (10-50); Mean Corpuscular HGB Conc 31.9 g/dL (31.8-35.4); Mean Corpuscular Hemoglobin 33.1 pg (27.0-31.2); Mean Corpuscular Volume 103.5 fl (81-99); Mean Platelet Volume 7.9 fl (7.4-10.4); Monocytes # 0.5 K/mm3 (0.1-1.0); Monocytes % 4.7 % (1.7-9.3); Neutrophils # 6.1 K/mm3 (1.8-7.8); Neutrophils % 62.9 % (37.0-80.0); Platelet Count 223 K/mm3 (142-424); Red Blood Count 3.94 M/mm3 (4.20-5.40); Red Cell Distribution Width 13.3 % (11.5-17.5); White Blood Count 9.6 K/mm3 (4.8-10.8)
[2019-09-08 07:13] LABS: Chloride 100 mmol/L (98-107); Potassium 4.1 mmoL/L (3.5-5.1); Sodium 138 mmol/L (136-145)
[2019-09-08 07:16] LABS: Anion Gap 11.1 mEq/L (5-15); Blood Urea Nitrogen 13 mg/dl (7-17); Calcium 9.6 mg/dl (8.4-10.2); Carbon Dioxide 31 mmol/L (22.0-30.0); Creatinine Clearance Estimated 130 mL/min (50-200); Estimated Glomerular Filt Rate 75 ml/min (>60); GFR (African American) 91 ML/MIN (>60); Glucose 90 mg/dl (74-100)
[2019-09-08 07:22] LABS: C-Reactive Protein 2.8 mg/L (0-4)
[2019-09-08 07:28] VITALS: BP 119/85; PULSE 70; RESP 18; TEMP 36.9; O2SAT 99
[2019-09-08 07:58] LABS: Erythrocyte Sedimentation Rate 24 mm/hr (0-30)
== END 2019-09-08 07:29 | disposition home or self-care (01) ==
PROVIDERS: Emergency Provider Emergency Medicine; PCP Emergency Medicine
DX: M25.561 Pain in right knee (principal); Z96.651 Presence of right artificial knee joint; Z79.51 Long term (current) use of inhaled steroids; Z79.899 Other long term (current) drug therapy; Z88.1 Allergy status to other antibiotic agents; Z88.2 Allergy status to sulfonamides; J45.909 Unspecified asthma, uncomplicated; I10 Essential (primary) hypertension; E78.5 Hyperlipidemia, unspecified; Z95.0 Presence of cardiac pacemaker; F41.9 Anxiety disorder, unspecified; K21.9 Gastro-esophageal reflux disease without esophagitis
CPT/HCPCS: 29530; 73502; 73562; 80048; 85025; 85651; 86140; 99283

== ENCOUNTER → 2019-09-18 13:50 | Outpatient (CLI) | payer MEDICARE, MEDICAID, SELFPAY ==
--- NOTE | 2019-09-18 14:01 | XR_ITS ---
PROCEDURE: XR LUMBAR SPINE 2-3V CLINICAL INDICATION: back pain Low back pain COMPARISON: No exams were available for comparison FINDINGS: There is mild multilevel degenerative disc disease from T10 L3. Facet arthritic changes are present at L4-5 and L5-S1 and there are degenerative changes of the SI joints on both sides inferiorly. There is 8 mm anterolisthesis of L4 on L5. No fracture or dislocation. No lytic or blastic change. There are multiple calcifications overlying both sides of the pelvis and could be due to injection granulomas. Mild osteoarthritic changes are present involving the hips IMPRESSION: Lumbar spondylosis with degenerative disc disease and facet arthritic change as well as arthritic changes of the SI joints with 8 mm anterolisthesis of L4 on L5 Dictated by: Octavio Dickson MD 09/18/2019 17:38 Electronically signed by Octavio Dickson MD in [place] 09/18/2019 17:38
== END ==
PROVIDERS: PCP Emergency Medicine; Visit Provider Orthopaedic Surgery
DX: M54.9 Dorsalgia, unspecified (principal)
CPT/HCPCS: 72100

== ENCOUNTER → 2019-10-03 12:01 | Outpatient (CLI) | payer MEDICARE, MEDICAID, SELFPAY ==
--- NOTE | 2019-10-03 12:10 | IR_ITS ---
PROCEDURE: IR FLUORO GUIDED NEEDLE PLACE CLINICAL INDICATION: RIGHT HIP INJECTION, PAIN COMPARISON: No exams were available for comparison FINDINGS: Fluoroscopy time: 1 minutes and 58 seconds The procedures performed by Dr. Lau. Please see that op note for technique One image submitted shows contrast along the right femoral neck and head and along the acetabular roof region. Please correlate with fluoroscopic findings 4 confirmation intra-articular injection. IMPRESSION: Status post right hip injection with fluoroscopic guidance Dictated by: Octavio Dickson MD 10/04/2019 11:50 Electronically signed by Octavio Dickson MD in [place] 10/04/2019 11:50
--- NOTE | 2019-10-03 15:55 | HMH.PROC ---
[facility] Procedure Note Procedure Note:: Date of Procedure: 10/03/2019 Pre-procedure diagnosis: 1. Osteoarthritis, right hip 2. Trochanteric bursitis, right hip Post-procedure diagnosis: Same Procedure: 1. Intra-articular corticosteroid injection, right hip 2. Trochanteric bursa corticosteroid injection, right hip Performed by: Ralph Lau MD Traffic Or System Dispatcher/s: none Anesthesia: local; 5 cc 1% lidocaine w/o epinephrine Estimated Blood Loss: none Procedure Note: Procedure [id number] right hip injection: The patient presented to the radiology department and changed into a gown. Consent was reviewed and signed by both myself and the patient, all questions were answered. The patient was placed supine on the fluoroscopy table and the Right hip exposed. The lateral hip and proximal thigh were prepped with multiple chlorhexidine sticks. Timeout was performed. Next, with the help of the instructional media services technician, the fluoro machine was brought in over the patient?s hip and a picture taken to confirm adequate visualization of the joint. I donned a pair of sterile surgical gloves; the remainder of the procedure was performed in a sterile fashion. A 20G spinal needle was held over the lateral aspect of the hip about the tip of the greater trochanter to approximate my desired entry point on the skin. Once this was established, a 25G needle was used to infiltrate injection site and estimated needle track with 5 cc 1% lidocaine w/o epinephrine. Once the injection site was anesthetized, the spinal needle was advanced through deeper towards the hip joint. Using fluoro, it was confirmed that the needle was advanced until it was at the level of the femoral neck. The stylus was removed from the spinal needle and 2cc of iodinated contrast solution was injected through the spinal needle. Fluoro was taken again, and the dye confirmed intra-capsular placement of the spinal needle, indicating a successful intraarticular injection. The syringe with contrast was removed, keeping the spinal needle in place, and 6 mg betamethasone with 4 cc 0.5% Marcaine w/o epinephrine was injected through the needle into the hip joint. A final fluoro picture was taken, confirming successful intraarticular injection. The spinal needle was removed from the hip. Procedure 2- right trochanteric bursa injection: Then utilizing a separate 22-gauge spinal needle, I injected combination of 6 mg of betamethasone, 4 mL of 0.5 percent Marcaine without epinephrine under aseptic precautions, into the soft tissues over the tender area of the the right greater trochanter. Sterile dressings were applied to both needle puncture sites. Patient tolerated both procedures well and there were no immediate complications. Patient reported very good pain relief within a few minutes after the the injections. Examination showed very good range of pain-free hip movements and patient got off the fluoroscopy table and mobilized fully weightbearing in the fluoroscopy room. She reported very good pain relief at both the sites. Specimens: none Condition/Disposition: good / home Complications: none
== END ==
PROVIDERS: PCP Emergency Medicine; Visit Provider Orthopaedic Surgery
DX: M16.11 Unilateral primary osteoarthritis, right hip (principal); M70.61 Trochanteric bursitis, right hip
CPT/HCPCS: 20610; 77002; Q9967

== ENCOUNTER → 2019-10-29 09:27 | Outpatient (POV) | payer MEDICARE, MEDICAID, SELFPAY ==
[2019-10-29 10:03] VITALS: BP 122/81; PULSE 65; RESP 18; TEMP 36.8; O2SAT 99; BMI 37.8
--- NOTE | 2019-10-30 08:30 | P.CONS_ITS ---
[facility] Pain Management SOAP Note Subjective:: She is a pleasant 53-year-old white female who presents today for follow-up. We saw her back several years for back pain. She was doing well in regards to this. She has recently had a total knee on her right side. And she has developed SI joint issues on the right side. Patient has a positive Germaine test SI joint compression test and Carter's test on the right side. She rates her pain today a 5 out of 10. She also has extreme pain over her right greater trochanteric bursa. She is interested in injective therapy. ROS General: no recent weight change, no fever, no sleep disturbances Respiratory: no cough, no shortness of air, no recurring pulmonary infections Cardiovascular/Peripheral Vascular: No chest pain, No palpitations, no edema, no shortness of breath. Gastrointestinal: no new onset incontinence, normal bowel movements reported Genitourinary: no new onset incontinence Musculoskeletal: Right hip pain, right SI joint pain Psychiatric: normal mood/ affect, [denies depression], [denies anxiety] Neurological: [denies new onset weakness in extremities], [denies new onset balance issues] Objective:: Physical Exam General: Alert and oriented x3, no acute distress, pleasant and cooperative, [on room air] Lungs: Resps E/U, Symmetrical chest expansion, Eyes: PERRL Musculoskeletal: Flexion and extension of lumbar spine somewhat guarded secondary to pain, deep tendon reflexes normal, strength in upper and lower extremities [5/5], antalgic gait noted Neurological: speech clear, strip polisher equal, no gross sensory deficits Assessment:: Sacroiliitis, bursitis Plan:: We will schedule right SI joint injection and right greater trochanteric bursa injection for the patient. I do believe that this would benefit her. She is been instructed to call the office if she has any issues prior to her next appointment. Dr. Miranda has reviewed this note and agrees with this plan of care. This note was dictated using voice recognition software and may contain errors or omissions [facility] History I have reviewed the patient's past medical history: Yes Medical History: Reports:: Anxiety, Asthma, Coronary Artery Disease, Gastroes ophageal Reflux Disease(GERD), Hyperlipidemia, Hypertension, Internal Pacemaker, Lung Disease, Palpitations Denies:: Cancer, Diabetes Mellitus Type 1, Diabetes Mellitus Type 2, MRSA, Seizures *Have you ever received a pneumonia vaccine?: No *Have you received a flu vaccine this season?: Yes Other Medical History: Reports: Anemia, Arthritis, Hypothyroidism, Sinus Problems. Denies: Blood Transfusion Reaction Laterality Cases: Left: Arthroscopy Knee, Arthroscopy Shoulder, Myringotomy (Ear Tubes), Right: Total Hip Replacement, Bilateral: Carpal Tunnel Release, Tonsillectomy Other Surgeries: Yes: Appendectomy, Cholecystectomy, , Hernia Repair, Hysterectomy-Total, Pacemaker, Sinus Surgery, Other Amputation: No Fractures: Yes (ARM) - *Social History Smoking Status: Never smoker Alcohol Intake: never Alcohol Intake Frequency:: a few times a week Substance Use Type: denies use *Occupational Status:: other [facility] Household Members: children *Travel in the last 8 weeks: None - Psychiatric History Pschychiatric History:: Reports:: Anxiety Family Hx:: Cancer, Diabetes, Hypertension, Thyroid Disorder
== END ==
PROVIDERS: PCP Emergency Medicine; Visit Provider Clinical Nurse Specialist Family Health
DX: M46.1 Sacroiliitis, not elsewhere classified (principal); M71.9 Bursopathy, unspecified
CPT/HCPCS: 99212

== ENCOUNTER → 2019-11-28 14:20 | Outpatient (CLI) | payer MEDICARE, MEDICAID, SELFPAY ==
--- NOTE | 2019-11-28 14:29 | XR_ITS ---
PROCEDURE: XR KNEE RT 2V CLINICAL INDICATION: sp RT TKA Pain following injury COMPARISON: XR KNEE RT 2V from 01/09/2019 XR KNEE RT 2V from 03/27/2019 XR KNEE RT 2V from 08/15/2019 XR KNEE RT 3V from 09/08/2019 FINDINGS: Status post total knee replacement. There is a transverse lucency at the proximal aspect of the fibula laterally suggesting a nondisplaced fracture not readily apparent previously. IMPRESSION: Nondisplaced fracture proximal fibula Dictated by: Octavio Dickson MD 11/28/2019 15:00 Electronically signed by Octavio Dickson MD in [place] 11/28/2019 15:00
--- NOTE | 2019-11-28 14:29 | XR_ITS ---
PROCEDURE: XR WRIST RT MIN 3V CLINICAL INDICATION: right wrist pain COMPARISON: No exams were available for comparison FINDINGS: No fracture or dislocation. No lytic or blastic change. There is normal mineralization. The joint spaces are well-preserved. No significant degenerative/arthritic changes. No erosive changes evident. Other findings:Well-circumscribed calcific density is present at the tip of the ulnar styloid process and may be due to an old fracture IMPRESSION: No acute findings. Dictated by: Octavio Dickson MD 11/28/2019 14:59 Electronically signed by Octavio Dickson MD in [place] 11/28/2019 14:59
== END ==
PROVIDERS: PCP Emergency Medicine; Visit Provider Orthopaedic Surgery
DX: Z96.651 Presence of right artificial knee joint (principal); M25.531 Pain in right wrist
CPT/HCPCS: 73110; 73560

== ENCOUNTER 2019-11-28 16:08 | Outpatient (RCR) | payer MEDICARE, MEDICAID, SELFPAY | END 2019-11-28 16:57 | disposition home or self-care (01) | LOC: PT 16:08 | PROVIDERS: Visit Provider Orthopaedic Surgery | DX: M25.531 Pain in right wrist (principal) | CPT/HCPCS: 97760 ==

== ENCOUNTER → 2019-12-19 15:57 | Outpatient (CLI) | payer MEDICARE, MEDICAID, SELFPAY ==
--- NOTE | 2019-12-19 16:01 | XR_ITS ---
PROCEDURE: XR WRIST RT W SCAPHOID CLINICAL INDICATION: right wrist/ thumb pain COMPARISON: XR WRIST RT MIN 3V from 11/28/2019 FINDINGS: No obvious fracture. The scapholunate space is prominent measuring up to 4 mm on the ulnar deviation images. The joint spaces are well-preserved. No significant degenerative/arthritic changes. No erosive changes evident. Other findings:None. IMPRESSION: Prominent scapholunate space suggesting injury to the scapholunate ligament Dictated by: Octavio Dickson MD 12/19/2019 17:02 Electronically signed by Octavio Dickson MD in [place] 12/19/2019 17:02
== END ==
PROVIDERS: PCP Emergency Medicine; Visit Provider Orthopaedic Surgery
DX: M25.531 Pain in right wrist (principal)
CPT/HCPCS: 73110

== ENCOUNTER → 2019-12-24 12:05 | Outpatient (CLI) | payer MEDICARE, MEDICAID, SELFPAY ==
[2019-12-24 12:47] LABS: Basophils # 0.1 K/mm3 (0-0.2); Basophils % 0.8 % (0.1-2.0); Eosinophils # 0.3 K/mm3 (0.0-0.4); Eosinophils % 3.7 % (0.1-12.0); Hematocrit 37.3 % (37.0-47.0); Hemoglobin 12.7 g/dL (12.2-16.2); Lymphocytes # 2.1 K/mm3 (0.7-4.5); Lymphocytes % 24.1 % (10-50); Mean Corpuscular Hemoglobin 34.2 pg (27.0-31.2); Mean Corpuscular Volume 100.7 fl (81-99); Mean Platelet Volume 8.4 fl (7.4-10.4); Monocytes # 0.3 K/mm3 (0.1-1.0); Neutrophils # 5.8 K/mm3 (1.8-7.8); Neutrophils % 67.3 % (37.0-80.0); Platelet Count 223 K/mm3 (142-424); Red Cell Distribution Width 13.2 % (11.5-17.5); White Blood Count 8.6 K/mm3 (4.8-10.8)
[2019-12-24 13:56] LABS: Chloride 103 mmol/L (98-107); Potassium 4.2 mmoL/L (3.5-5.1); Sodium 140 mmol/L (136-145)
[2019-12-24 13:58] LABS: Blood Urea Nitrogen 16 mg/dl (7-17); Estimated Glomerular Filt Rate 58 ml/min (>60); GFR (African American) 70 ML/MIN (>60)
[2019-12-24 13:59] LABS: Alanine Aminotransferase 31 U/L (12-78); Albumin Level 3.8 g/dl (3.5-5.0); Albumin/Globulin Ratio 1.5 (1.1-1.8); Alkaline Phosphatase 75 U/L (38-126); Anion Gap 14.2 mEq/L (5-15); Aspartate Amino Transferase 34 U/L (14-36); Bilirubin,Total 0.4 mg/dl (0.2-1.3); Calcium 9.7 mg/dl (8.4-10.2); Carbon Dioxide 27 mmol/L (22.0-30.0); Globulin 2.6 g/dL (1.3-3.2); Glucose 120 mg/dl (74-100); Total Protein,Serum 6.4 g/dl (6.3-8.2)
[2019-12-24 14:30] LABS: Thyroid Stimulating Hormone 0.85 uIU/mL (0.465-4.68)
[2019-12-24 14:44] LABS: Free T4 (Free Thyroxine) 0.67 ng/dl (0.78-2.19)
== END ==
PROVIDERS: Visit Provider Nurse Practitioner Family
DX: R63.4 Abnormal weight loss (principal)
CPT/HCPCS: 36415; 80053; 84439; 84443; 85025

== ENCOUNTER → 2019-12-28 07:43 | Outpatient (CLI) | payer MEDICARE, MEDICAID, SELFPAY ==
--- NOTE | 2019-12-28 | CA_ITS ---
APPROVED REPORT Exam: Pharmacologic Technologist: Meaghan Garcia, Ht: 5 ft 4 in Wt: 214 lbs BSA: 2.01 m2 HR: 60 bpm BP: 102/52 mmHg Rhythm: SINUS RHYTHM(PACEMAKER IN PLACE) Medical History Medical History: HTN, Hyperlipidemia Medications: Lisinopril,,,,, Pravastatin,,,,, Gabapentin,,,,, HCTZ,,,,, Albuterol,,,,, Vit C,,,,, BisOPROLOL,,,,, Baclofen,,,,, ElIQUIS,,,,, BuPRIONE,,,,, IsSORBIDE,,,,, ThiaminE,,,,, Allergies: SULFA,CECLOR,XARELTO Cardiac Risk Factors: HTN, Hyperlipidemia, FHX of CAD Stress Test Details Test: LEXISCAN HR Resting HR: 60 bpm Max Heart Rate (APMHR): 168 bpm Max HR Achieved: 80 bpm Target HR (85% APMHR): 142 bpm % of APMHR: 47 Recovery HR: 72 bpm BP Resting BP: 102.0/52.0 mmHg Max BP: 110.0/52.0 mmHg Recovery BP: 104.0/56.0 mmHg ECG Resting ECG: SINUS RHYTHM(PPM IN PLACE) Clinical Exercise duration: 0.5 min Highest Stage Achieved: Stress ECG Conclusion LEXISCAN PORTION COMPLETED. PATIEN C/O SHORTNESS OF BREATH AND CHEST PAIN DURING PEAK INFUSION. POSITIVE FOR CP AND SOA DURING PEAK INFUSION. OCCASIONAL PAC. LESS THAN 1.[address] DEPRESSION. IMAGES TO FOLLOW Electronically signed by : Mark Vasquez, 12/28/2019 13:21:01
--- NOTE | 2019-12-28 07:44 | NM_ITS ---
APPROVED REPORT Exam: Nuclear Stress Test Indication: chest pain..short of breath..fatigue Patient Location: Outpatient Stress Tech: Rebecca Dickinsonnkson HI Tech:RICHIE Richardson RT(R)(N) Ht: 5 ft 4 in Wt: 214 lbs Bra Size: 3x HR: 60 bpm BP: 102/52 mmHg BSA: 2.01 m2 BMI: 36.7 History: chest pain..short of breath..fatigue Procedure: Patient received a 0.4 mg of intravenous Lexiscan, resting heart rate 60 bpm, resting blood pressure 102/52 mmHg, with Lexiscan maximum heart rate achived was 72 bpm which is Less than 85 % of the maximum predicted heart rate and blood pressure was 104/56 mmHg. Electrocardiogram Resting electrocardiogram shows sinus rhythm, with Lexiscan there is less than 1.[address] segment depression noted from the baseline EKG. The EKG portion of the Lexiscan Myoview is nondiagnostic. Cardiac Stress and Resting SPECT Images: Cardiac Stress and Resting SPECT images were obtained using technetium 99m Myoview 31.5 mCi stress and 10.08 mCi at rest. Gated SPECT for the analysis of segmental wall motion and calculation of the ejection fraction also done. Cardiac stress and resting SPECT image a partial reversible defect in the anterior and lateral wall however this is study is technically limited due to patient's body habitus, this is likely secondary to soft tissue attenuation than true finding of myocardial ischemia. Computer derived ejection fraction is 63% with no regional wall motion abnormality, right ventricle is normal size and contractility. Conclusion: 1. The EKG portion of the Lexiscan Myoview is nondiagnostic. 2. Scintigraphic evidence of partial reversible defect involving the anterior and lateral wall with air this is likely secondary to soft tissue attenuation or true finding of myocardial ischemia is difficult to ascertain from this study. This study is technically limited due to patient's body habitus. Computer derived ejection fraction is 63% with no regional wall motion abnormality, right ventricle is normal size and contractility. 3. Equivocal myocardial perfusion imaging. Electronically signed by : Mark Vasquez, 12/28/2019 13:26:40
== END ==
PROVIDERS: PCP Emergency Medicine; Visit Provider Nurse Practitioner Family
DX: E66.9 Obesity, unspecified (principal); I10 Essential (primary) hypertension; R00.2 Palpitations; R06.02 Shortness of breath; R07.89 Other chest pain; R29.6 Repeated falls; R42 Dizziness and giddiness; Z95.0 Presence of cardiac pacemaker
CPT/HCPCS: 78452; 93017; A9502; J2785

== ENCOUNTER → 2020-01-16 10:22 | Outpatient (CLI) | payer MEDICARE, MEDICAID, SELFPAY ==
--- NOTE | 2020-01-16 10:25 | XR_ITS ---
PROCEDURE: XR KNEE RT 3V CLINICAL INDICATION: knee pain COMPARISON: CR XR KNEE RT 2V from 03/27/2019 CR XR KNEE RT 2V from 08/15/2019 CR XR KNEE RT 3V from 09/08/2019 CR XR KNEE RT 2V from 11/28/2019 FINDINGS: Status post total knee replacement. There is a nondisplaced fracture involving the proximal and lateral aspect of the tibia which appears old. Nondisplaced healing proximal fibular fracture also noted. There is good alignment of the knee prosthesis. No acute fracture or dislocation. Other findings:None. IMPRESSION: Status post total knee replacement with good alignment with old fractures of the proximal fibula and at the proximal tibia laterally Dictated by: Octavio Dickson MD 01/16/2020 12:28 Octavio Dickson MD in [place] 01/16/2020 12:28
--- NOTE | 2020-01-16 11:29 | XR_ITS ---
PROCEDURE: XR FOOT WT BEARING RT 3V CLINICAL INDICATION: rt foot pain/ weightbearing as tolerated COMPARISON: No exams were available for comparison FINDINGS: There is an old fracture of the proximal phalanx of the 3rd toe. There are mild osteoarthritic changes at the DIP joint of the 1st toe. There is some faint soft tissue calcification along the medial aspect of the 1st metatarsal distally with some erosive change along the dorsal medial aspect of the 1st metatarsal. These findings can be seen with gout. Hypertrophic changes are present involving the talus anteriorly and distally and at the dorsal aspect of the navicular cuneiform joint. IMPRESSION: Soft tissue calcification along the distal 1st metatarsal medially along with erosive change at this area which could be seen with gout. Please correlate with clinical parameters Dictated by: Octavio Dickson MD 01/16/2020 12:03 Octavio Dickson MD in [place] 01/16/2020 12:03
== END ==
PROVIDERS: PCP Emergency Medicine; Visit Provider Orthopaedic Surgery
DX: M17.11 Unilateral primary osteoarthritis, right knee (principal); M79.671 Pain in right foot
CPT/HCPCS: 73562; 73630

== ENCOUNTER 2020-01-22 08:51 | Day surgery (SDC) | payer MEDICARE, MEDICAID, SELFPAY ==
[2020-01-22] VITALS (10 sets, daily range): BP systolic 93–127; BP diastolic 38–75; PULSE 60–89; RESP 20; TEMP 36.6; O2SAT 90–95; BMI 36.3
--- NOTE | 2020-01-22 | IR_ITS ---
APPROVED REPORT Patient Location: Outpatient PROCEDURES Left heart catheterization Left ventriculogram Selective coronary angiogram INDICATION Angina pectoris, Preoperative evaluation, Abnormal stress test Informed consent was obtained prior to the procedure. COMPLICATIONS none Estimated Blood Loss: less than 10 mls TECHNIQUE One percent lidocaine used to anesthetize the right anterior aspect of the wrist. The right radial artery was accessed via the Seldinger technique. A 6 Italian sheath was placed in the right radial artery. 2.5 mg of verapamil, 800 mcg of nitroglycerin, 1mg Lidocaine and 5000 U Heparin were given through the arterial sheath. The trap catheter was also used to perform left heart catheterization, left ventriculogram and selective coronary angiogram. At the end of the procedure the sheath was removed good hemostasis was achieved using Traclet band, patient was transferred to the postop holding area in stable condition. ANGIOGRAPHIC RESULTS The left main artery Normal The left anterior descending artery Has an ostial 20% stenosis with mild luminal irregularities distally The circumflex artery Is a large codominant vessel and normal The right coronary artery Is codominant and has mid vessel 10 to 20% smooth stenosis The COLE ventriculogram reveals Normal 65 to 70% The left ventricular end-diastolic pressure 10 mmHg IMPRESSION Mild [id number] coronary disease Normal to slightly elevated ejection fraction Normal left ventricular diastolic pressure PLAN 1. Medical management Electronically signed by : Nickolas Canela, 01/22/2020 14:09:35
[2020-01-22 09:46] LABS: Basophils # 0.1 K/mm3 (0-0.2); Basophils % 0.8 % (0.1-2.0); Eosinophils # 0.3 K/mm3 (0.0-0.4); Eosinophils % 3.2 % (0.1-12.0); Hemoglobin 13.4 g/dL (12.2-16.2); Lymphocytes # 1.9 K/mm3 (0.7-4.5); Lymphocytes % 22.9 % (10-50); Mean Corpuscular HGB Conc 33.6 g/dL (31.8-35.4); Mean Corpuscular Hemoglobin 34.7 pg (27.0-31.2); Mean Corpuscular Volume 103.3 fl (81-99); Monocytes # 0.4 K/mm3 (0.1-1.0); Monocytes % 4.2 % (1.7-9.3); Neutrophils # 5.7 K/mm3 (1.8-7.8); Neutrophils % 68.9 % (37.0-80.0); Platelet Count 243 K/mm3 (142-424); Red Blood Count 3.87 M/mm3 (4.20-5.40); Red Cell Distribution Width 13.2 % (11.5-17.5); White Blood Count 8.3 K/mm3 (4.8-10.8)
[2020-01-22 09:47] LABS: Chloride 103 mmol/L (98-107)
[2020-01-22 09:48] LABS: Potassium 4.1 mmoL/L (3.5-5.1); Sodium 143 mmol/L (136-145)
[2020-01-22 09:51] LABS: Anion Gap 14.1 mEq/L (5-15); Blood Urea Nitrogen 18 mg/dl (7-17); Calcium 9.9 mg/dl (8.4-10.2); Carbon Dioxide 30 mmol/L (22.0-30.0); Creatinine Clearance Estimated 99 mL/min (50-200); Estimated Glomerular Filt Rate 58 ml/min (>60); GFR (African American) 70 ML/MIN (>60); Glucose 83 mg/dl (74-100)
[2020-01-22 10:14] LABS: Coronavirus 19 IgG Antibody Negative (Negative); Coronavirus 19 IgM Antibody Negative (Negative)
== END 2020-01-22 14:17 | disposition home or self-care (01) ==
LOC: CATHLAB 08:53
PROVIDERS: PCP Emergency Medicine; Visit Provider Internal Medicine
DX: I25.118 Atherosclerotic heart disease of native coronary artery with other forms of angina pectoris (principal); I10 Essential (primary) hypertension; E03.9 Hypothyroidism, unspecified; Z95.0 Presence of cardiac pacemaker; Z88.2 Allergy status to sulfonamides; Z88.1 Allergy status to other antibiotic agents; Z88.8 Allergy status to other drugs, medicaments and biological substances; Z79.01 Long term (current) use of anticoagulants; Z79.52 Long term (current) use of systemic steroids; Z79.84 Long term (current) use of oral hypoglycemic drugs; Z79.899 Other long term (current) drug therapy
CPT/HCPCS: 80048; 85025; 86328; 93458; 99152; C1725; C1769; J1644; J2405; Q9967

== ENCOUNTER → 2020-01-30 15:27 | Outpatient (CLI) | payer MEDICARE, MEDICAID, SELFPAY ==
--- NOTE | 2020-01-30 15:29 | CA_ITS ---
APPROVED REPORT Laterality: Unilateral right State Wildlife Officer: Isabelle Gallardo, RVT Comments PT HAD HEART CATH 01/23/20, PAIN, BRUISING AT CATH SITE Findings Study suggests no evidence of pseudoaneurysm of the right wrist. Study suggets no evidence of fistula right wrist. Conclusion Study suggests no evidence of pseudoaneurysm of the right wrist. Study suggets no evidence of fistula right wrist. Electronically signed by : Octavio Dickson MD 01/31/2020 17:30:12
== END ==
PROVIDERS: PCP Emergency Medicine; Visit Provider Urology
DX: I72.9 Aneurysm of unspecified site (principal); I77.0 Arteriovenous fistula, acquired; M25.531 Pain in right wrist; T81.718A Complication of other artery following a procedure, not elsewhere classified, initial encounter
CPT/HCPCS: 93931

== ENCOUNTER → 2020-02-06 09:49 | Outpatient (CLI) | payer MEDICARE, MEDICAID, SELFPAY ==
--- NOTE | 2020-02-06 10:10 | XR_ITS ---
PROCEDURE: XR DEXA AXIAL SKELETON CLINICAL HISTORY: fracture COMPARISON: No exams were available for comparison FINDINGS: The right hip BMD is 0.849 with a T-score of 0.0. The left hip BMD is 0.895 with a T-score of 0.4. The lumbar spine BMD is 1.234 with a T-score of 1.7. IMPRESSION: This patient is considered normal according to the World Health Organization criteria. Fracture risk is low. Dictated by: Octavio Dickson MD 02/06/2020 21:01 Octavio Dickson MD in [place] 02/07/2020 09:51
[2020-02-06 14:34] LABS: Coronavirus 19 IgG Antibody Negative (Negative); Coronavirus 19 IgM Antibody Negative (Negative)
== END ==
PROVIDERS: Visit Provider Nurse Practitioner Family
DX: S82.831A Other fracture of upper and lower end of right fibula, initial encounter for closed fracture (principal); Z78.0 Asymptomatic menopausal state; Z90.710 Acquired absence of both cervix and uterus
CPT/HCPCS: 36415; 77080; 86328

== ENCOUNTER → 2020-02-07 13:07 | Outpatient (POV) | payer MEDICARE, MEDICAID, SELFPAY ==
[2020-02-07 14:19] VITALS: BP 95/60; PULSE 81; RESP 16; O2SAT 96; BMI 34.8
--- NOTE | 2020-02-07 14:51 | HMH.PAINSOAP ---
[facility] Pain Management SOAP Note Subjective:: Patient is a 54-year-old white female who presents today for low back pain with radiation into her bilateral lower extremities. She says the pain is causing her to have numbness and tingling in bilateral legs. Patient says she does not have any recent imaging of her lumbar spine. She says that her pain is different than the pain she has had in the past when she was treated for sacroiliitis. She says that her pain is worse with standing and walking and also worsens with prolonged sitting. She would like to undergo imaging of her spine before proceeding with any further injective therapy. Patient is asking for oral medications today. She is currently taking muscle relaxers and anti-inflammatories. Patient says that she does not get relief if she leans forward. Her pain is 6 out of 10 today. Review of Systems General: No recent weight changes, no fever, no sleep disturbances Respiratory: No cough, no shortness of air, no recurring pulmonary infections Cardiovascular/peripheral vascular: No chest pain, no palpitations, no edema, no shortness of breath Gastrointestinal: No new onset incontinence, normal bowel movements reported Genitourinary: No new onset incontinence Musculoskeletal: Low back pain with radiation into bilateral lower extremities Psychiatric: Normal mood/affect Neurological: [Denies weakness in extremities], [denies balance issues] Objective:: Physical exam General: Alert and oriented x3, no acute distress, pleasant and cooperative, [on room air] Lungs: Respirations even and unlabored, symmetrical chest expansion Eyes: PERRL Musculoskeletal: Flexion and extension of lumbar spine somewhat guarded secondary to pain, deep tendon reflexes normal, strength in upper and lower extremities [5/5], [abnormal gait noted] Neurological: Speech clear, jewelry appraiser equal, no gross sensory deficit Assessment:: Low back pain with lumbar radiculopathy symptoms Plan:: We will schedule the patient for a CT scan of her lumbar spine. We will also give her tramadol 50 mg 1 tablet p.o. twice daily #20 until she is able to undergo her CT scan. We will plan to see her back in the clinic afterwards to reassess her symptoms and discuss a further plan of care as well as review her CT scan. Patient has been instructed to contact clinic if she has any concerns before her next appointment. The patient and I specifically discussed risk factors for COVID19. These risks include, but are not limited to age greater than 60, heart or lung disease, diabetes, immunosuppression, and travel. We also discussed NSAIDs may worsen COVID19 infection or symptoms. Patient should not use NSAIDs to treat COVID19 signs or symptoms. Patient was also informed that any type of corticosteroid of any form (oral or injection) will decrease the patient's immune system response and may increase the likelihood of COVID19 infection [address] symptoms[address]. Miranda has reviewed this note and agrees with this plan of care. This note was dictated using voice recognition software and make contain errors or omissions. [facility] History I have reviewed the patient's past medical history: Yes Medical History: Reports:: Anxiety, Asthma, Coronary Artery Disease, Depression, Gastroesophageal Reflux Disease(GERD), Hyperlipidemia, Hypertension, Internal Pacemaker, Lung Disease, Palpitations, Pulmonary Embolism Denies:: Cancer, Diabetes Mellitus Type 1, Diabetes Mellitus Type 2, MRSA, Seizures *Have you ever received a pneumonia vaccine?: Yes *Have you received a flu vaccine this season?: Yes Other Medical History: Reports: Anemia, Arthritis, Hypothyroidism, Sinus Problems, Other. Denies: Blood Transfusion Reaction Laterality Cases: Left: Arthroscopy Knee, Arthroscopy Shoulder, Myringotomy (Ear Tubes), Right: Total Hip Replacement, Bilateral: Carpal Tunnel Release, Tonsillectomy Other Surgeries: Yes: Appendectomy, Cardiac Catheterization, Cholecystectomy, [place]
== END ==
PROVIDERS: PCP Emergency Medicine; Visit Provider Clinical Nurse Specialist Family Health
DX: M54.5 Low back pain (principal); M54.16 Radiculopathy, lumbar region
CPT/HCPCS: 99212

== ENCOUNTER → 2020-02-13 09:12 | Outpatient (CLI) | payer MEDICARE, MEDICAID, SELFPAY ==
[2020-02-13 11:05] LABS: Coronavirus 19 IgG Antibody Negative (Negative)
[2020-02-13 11:08] LABS: Coronavirus 19 IgM Antibody Positive (Negative)
[2020-02-15 11:40] LABS: Covid-19 Nasal PCR Sendout Lex NOT DETECTED
== END ==
PROVIDERS: PCP Emergency Medicine; Visit Provider Otolaryngology
DX: Z01.818 Encounter for other preprocedural examination (principal); H65.92 Unspecified nonsuppurative otitis media, left ear; H90.12 Conductive hearing loss, unilateral, left ear, with unrestricted hearing on the contralateral side
CPT/HCPCS: 36415; 86328; U0004

== ENCOUNTER → 2020-02-18 16:04 | Outpatient (CLI) | payer MEDICARE, MEDICAID, SELFPAY ==
[2020-02-18 17:06] LABS: Coronavirus 19 IgG Antibody Negative (Negative); Coronavirus 19 IgM Antibody Negative (Negative)
[2020-02-18 18:17] LABS: Folate > 20.00 ng/mL; Vitamin B12 > 1000 pg/mL (239-931)
[2020-02-18 19:13] LABS: Iron 102 ug/dL (37-170)
[2020-02-18 19:22] LABS: Total Iron Binding Capacity 256 ug/dL (265-497)
[2020-02-22 15:01] LABS: Vitamin E Alpha Tocopherol 9.3 mg/L (7.0-25.1)
[2020-02-22 17:19] LABS: Vitamin A 74.1 ug/dL (20.1-62.0)
== END ==
PROVIDERS: Nurse Practitioner Family; Visit Provider Otolaryngology
DX: K63.5 Polyp of colon (principal)
CPT/HCPCS: 36415; 82607; 82746; 83540; 83550; 84446; 84590; 86328

== ENCOUNTER 2020-02-19 06:01 | Day surgery (SDC) | payer MEDICARE, MEDICAID, SELFPAY ==
[2020-02-06 11:16] VITALS: BMI 34.8
[2020-02-19] VITALS (10 sets, daily range): BP systolic 103–124; BP diastolic 65–79; PULSE 60–68; RESP 12–18; TEMP 36.3–36.7; O2SAT 93–100
--- NOTE | 2020-02-19 08:15 | HMH.ANESCL ---
[facility] Anesthesia Checklist - Patient Identification Patient Identification: Arm Band, Verbal (Name & ) - Structural Data Admitted From: Home Planned Operative Procedure/s: bmt Consent for Planned Operative Procedure(s) Verified: Yes Verified Documents: History and Physical - NPO Status Verified Time NPO: 00:00 - Chart Verification Results Verified: CBC, BMP - Additional verifications Patient : No Anesthesia Reactions: No Hx Blood Transfusions: Yes (2007) Blood Transfusion Reaction: No Cephalosporin Allergy: No Previous Colonoscopy: No - Cardiovascular Assessment Heart Sounds: S1 & S2 Pulse Strength: Baseline Pulse Rhythm: Regular Peripheral Edema: No - Airway Assessment C-Spine Mobility Assessed: Yes TMJ Mobility Assessed: Yes Dentition: Good Dentition - Neurological Assessment Level of Consciousness: Awake, Alert, Appropriate Hx Seizures: No Numbness or tingling in extremities: No - Anesthesia Plan Anesthesia Risk discussed: Yes ASA Class: III Anesthesia Type: General [facility] History I have reviewed the patient's past medical history: Yes Medical History: Reports:: Anxiety, Asthma, Coronary Artery Disease, Depression, Gastroesophageal Reflux Disease(GERD), Hyperlipidemia, Hypertension, Internal Pacemaker, Lung Disease, Palpitations, Pulmonary Embolism Denies:: Cancer, Diabetes Mellitus Type 1, Diabetes Mellitus Type 2, MRSA, Seizures *Have you ever received a pneumonia vaccine?: Yes *Have you received a flu vaccine this season?: Yes Other Medical History: Reports: Anemia, Arthritis, Hypothyroidism, Sinus Problems, Other. Denies: Blood Transfusion Reaction Anesthesia experience/problems:: none Laterality Cases: Left: Arthroscopy Knee, Arthroscopy Shoulder, Myringotomy (Ear Tubes), Right: Total Hip Replacement, Bilateral: Carpal Tunnel Release, Tonsillectomy Other Surgeries: Yes: Appendectomy, Cardiac Catheterization, Cholecystectomy, Colonoscopy, , EGD, Hernia Repair, Hysterectomy-Total, Pacemaker, Sinus Surgery, Other Amputation: No Fractures: Yes (rt knee,lt great toe) - *Social History Last grade of school completed: Advanced degree Smoking Status: Never smoker Alcohol Intake: never Alcohol Intake Frequency:: a few times a week Substance Use Type: denies use *Occupational Status:: unemployed Housing: house Household Members: family *Travel in the last 8 weeks: None - Psychiatric History Pschychiatric History:: Reports:: Anxiety, Depression Family Hx:: Cancer, Diabetes, Hypertension, Thyroid Disorder
--- NOTE | 2020-02-19 08:16 | P.PN_ITS ---
[facility] Anesthesia Record Part I Intake, IV Amount: 400 Estimated blood loss (mL): 0 Urine output (mL): 0 Blood Products used (#): none Blood Pressure: 111/65 SaO2: 93 Pulse Rate: 61 Respiratory Rate: 18 Temperature: 97.5 F (ax) Patient is:: Drowsy, Nasal O2, Stable Stable to PACU at:: 08:12
--- NOTE | 2020-02-19 08:28 | P.OP_ITS ---
Date of procedure: 02/19/20 Pre-op Diagnosis:: Bilateral serous otitis media Post-op Diagnosis:: same Procedure performed:: Bilateral myringotomy and tubes Surgeon:: David Moreno MD RESIDENT[facility] C[facility] FACILITY MANAGER:: Sonido Roberts Anesthesia: GETA Estimated blood loss (mL): 0 Operative findings:: same Operative note:: With the patient under general anesthesia the right ear was prepped and draped. An incision was made in the posterior inferior quadrant, serous fluid was aspirated and a Triune T-tube was placed. Ciprodex drops were applied. The left ear was then prepped and draped, there was a retained old ventilation tube in the left ear which was surrounded by cerumen, that was all taken out, the ear was thoroughly irrigated an incision was made and Serous otitis was aspirated and a Triune T-tube was placed. Ciprodex drops were applied. Gelfoam was placed around the tube to support it. The patient tolerated procedure well and was sent to recovery in good general condition. Condition: stable Disposition: PACU Complications:: none
--- NOTE | 2020-02-19 09:31 | CT_ITS ---
PROCEDURE: CT LUMBAR SPINE WO CON CLINICAL HISTORY: LOW BACK PAIN low back pain, x 1 year pain down the back of both legs prior 09/23/14 COMPARISON: CT LSWO CT LUMBAR SPINE W/O CONTRAST from 09/23/2014 TECHNIQUE: Axial images obtained with sagittal and coronal reformats. All CT scans at the facility use one or more dose reduction, viz: automated exposure control, ma/kV adjustment per patient size (including targeted exams where dose is matched to indication, i.e. head), or iterative reconstruction technique. FINDINGS: T10-T11: Degenerative disc disease with small right anterior lateral osteophytes. T11-T12: Mild degenerative disc disease with small anterior osteophytes T12-L1: Small left anterior osteophytes L1-L2: Small anterior osteophytes. L2-L3: Mild bulging disc. L3-L4: Minimal bulging disc. L4-5: There has been interval development of mild anterolisthesis of L4 of approximately 4 mm with mild degenerative disc disease at that level and bulging disc with moderate facet hypertrophic/arthritic changes. Postsurgical changes are present from a prior right laminotomy. There is canal stenosis with moderate bilateral foraminal narrowing. Calcification has developed along the thecal sac on the right at this level. This was not apparent on the previous exam consistent with some ligamentum flavum calcification. There is also sclerosis with subarticular cystic changes involving the spinous processes at L4-5 which are abutting 1 another suggesting Baastrup's disease. The facet arthritic changes are worse compared to the previous exam the L5-S1: 3 mm anterolisthesis of L5 with moderate right and moderate to severe left foraminal narrowing. There is exuberant posterior element hypertrophy which is increased from the previous exam. It appears that the facets have fused. Incidental note is made of some minimal calcification along the left kidney laterally in the cortex IMPRESSION: 1. Multilevel lumbar spondylosis. Please see above for detailed description at each level. 2. L4-5: There has been interval development of mild anterolisthesis of L4 of approximately 4 mm with mild degenerative disc disease at that level and bulging disc with moderate facet hypertrophic/arthritic changes. Postsurgical changes are present from a prior right laminotomy. There is canal stenosis with moderate bilateral foraminal narrowing. Calcification has developed along the thecal sac on the right at this level. This was not apparent on the previous exam consistent with some ligamentum flavum calcification. There is also sclerosis with subarticular cystic changes involving the spinous processes at L4-5 which are abutting 1 another suggesting Baastrup's disease. The facet arthritic changes are worse compared to the previous exam 3. L5-S1: 3 mm anterolisthesis of L5 with moderate right and moderate to severe left foraminal narrowing. There is exuberant posterior element hypertrophy which is increased from the previous exam. It appears that the facets have fused. Dictated by: Octavio Dickson MD 02/20/2020 11:42 Octavio Dickson MD in [place] 02/20/2020 11:42
--- NOTE | 2020-02-19 10:01 | P.PN_ITS ---
[facility] Anesthesia Record Part II Discharge Time: 08:42 Destination: Surgical Day Care (OP Surgery) PACU nurse assessment reviewed?: Yes Patient Condition:: Good Anesthesia Complications:: None Swallowing reflex intact?: Yes Cyanosis?: No Blood Pressure: 112/71 Pulse Rate: 68 Temperature: 98.1 F Mental Status: Alert & Oriented Pain level:: 0 Nausea and/or vomitting:: None Intake, IV Amount: 25
== END 2020-02-19 09:16 | disposition home or self-care (01) ==
PROVIDERS: PCP Emergency Medicine; Visit Provider Otolaryngology
PROC: (CPT 69436; principal; 2020-02-19 07:30)
DX: H65.93 Unspecified nonsuppurative otitis media, bilateral (principal); M54.5 Low back pain; E78.5 Hyperlipidemia, unspecified; I10 Essential (primary) hypertension; K21.9 Gastro-esophageal reflux disease without esophagitis; J45.909 Unspecified asthma, uncomplicated; F41.9 Anxiety disorder, unspecified; F32.9 Major depressive disorder, single episode, unspecified; I25.10 Atherosclerotic heart disease of native coronary artery without angina pectoris; I26.99 Other pulmonary embolism without acute cor pulmonale; Z95.0 Presence of cardiac pacemaker; M19.90 Unspecified osteoarthritis, unspecified site; E03.9 Hypothyroidism, unspecified
CPT/HCPCS: 69436; 72131; 96374; 96375

== ENCOUNTER → 2020-02-20 09:52 | Outpatient (CLI) | payer MEDICARE, MEDICAID, SELFPAY ==
--- NOTE | 2020-02-20 10:00 | XR_ITS ---
PROCEDURE: XR FOOT RT MIN 3V CLINICAL INDICATION: foot pain COMPARISON: CR XR FOOT WT BEARING RT 3V from 01/16/2020 FINDINGS: Overall no significant change in the mall areas of exostosis with soft tissue calcification and questionable erosive change at the head of the 1st metatarsal which could be seen with gout. Please correlate with clinical findings. This is not significantly changed. There are mild osteoarthritic changes of the 1st metatarsophalangeal joint and there is generalized vascular calcification. There does appear to be an old fracture of the proximal phalanx of the 3rd toe as well as hypertrophic change of the talus distally and anteriorly with mild osteoarthritis of the talonavicular and navicular cuneiform joint. IMPRESSION: No change. There is some soft tissue calcification with bony hypertrophy and questionable erosive change at the 1st metatarsal head medially which could be seen with gout. Please correlate with clinical parameters Dictated by: Octavio Dickson MD 02/20/2020 16:51 Octavio Dickson MD in [place] 02/20/2020 16:51
--- NOTE | 2020-02-20 10:00 | XR_ITS ---
PROCEDURE: XR KNEE RT 3V CLINICAL INDICATION: sp RT TKA; fibular fx follow up COMPARISON: CR XR KNEE RT 2V from 08/15/2019 CR XR KNEE RT 3V from 09/08/2019 CR XR KNEE RT 2V from 11/28/2019 CR XR KNEE RT 3V from 01/16/2020 FINDINGS: Good alignment status post total knee replacement. No evidence of orthopedic complication. No acute fracture or dislocation. No lytic or blastic change. Old proximal fibular fracture once again noted. IMPRESSION: No change good alignment status post total knee replacement Dictated by: Octavio Dickson MD 02/20/2020 16:52 Octavio Dickson MD in [place] 02/20/2020 16:52
== END ==
PROVIDERS: PCP Emergency Medicine; Visit Provider Orthopaedic Surgery
DX: S82.831A Other fracture of upper and lower end of right fibula, initial encounter for closed fracture (principal); Z96.659 Presence of unspecified artificial knee joint; M79.671 Pain in right foot; M25.561 Pain in right knee
CPT/HCPCS: 73562; 73630

== ENCOUNTER → 2020-02-25 11:17 | Outpatient (POV) | payer MEDICARE, MEDICAID, SELFPAY ==
[2020-02-25 11:27] VITALS: BP 132/74; PULSE 85; RESP 18; TEMP 36.9; O2SAT 98; BMI 34.3
--- NOTE | 2020-02-25 11:51 | HMH.PAINSOAP ---
[facility] Pain Management SOAP Note Subjective:: Patient is a 54-year-old white female who presents today for follow-up after CT. Patient states she has never had lumbar surgery. Patient CT shows multilevel lumbar spondylosis, anterolisthesis and postsurgical changes from a prior right laminotomy at the L4-L5 level she also has spinal stenosis. Patient states that her pain is constant. She is asking for medications today. She has a history of oversedation with her medications. At this time she is not a narcotic candidate. Patient currently on gabapentin, Belsomra, Tylenol. I did offer injective therapy to help with pain until she is seen by neurosurgeon. Patient refuses stating that they have never worked for her. ROS General: no recent weight change, no fever, no sleep disturbances Respiratory: no cough, no shortness of air, no recurring pulmonary infections Cardiovascular/Peripheral Vascular: No chest pain, No palpitations, no edema, no shortness of breath. Gastrointestinal: no new onset incontinence, normal bowel movements reported Genitourinary: no new onset incontinence Musculoskeletal: Back pain, leg pain Psychiatric: normal mood/ affect Neurological: [denies new onset weakness in extremities], [denies new onset balance issues] Objective:: Physical Exam General: Alert and oriented x3, no acute distress, pleasant and cooperative, [on room air] Lungs: Resps E/U, Symmetrical chest expansion, Eyes: PERRL Musculoskeletal: Flexion and extension of lumbar spine somewhat guarded secondary to pain, deep tendon reflexes normal, strength in upper and lower extremities [5/5], [abnormal gait noted] Neurological: speech clear, 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 Follow-up with the patient after this reassess her symptoms at that time she is uninterested in injective therapy. At this time she is not a candidate for narcotic therapy. She is been instructed to call office if she has any issues prior to her next appointment. Dr. Miranda has reviewed this note and agrees with this plan of care. This note was dictated using voice recognition software and may contain errors or omissions [facility] History I have reviewed the patient's past medical history: Yes Medical History: Reports:: Anxiety, Asthma, Coronary Artery Disease, Depression, Gastroesophageal Reflux Disease(GERD), Hyperlipidemia, Hypertension, Internal Pacemaker, Lung Disease, Palpitations, Pulmonary Embolism Denies:: Cancer, Diabetes Mellitus Type 1, Diabetes Mellitus Type 2, MRSA, Seizures *Have you ever received a pneumonia vaccine?: Yes *Have you received a flu vaccine this season?: Yes Other Medical History: Reports: Anemia, Arthritis, Hypothyroidism, Sinus Problems, Other. Denies: Blood Transfusion Reaction Laterality Cases: Left: Arthroscopy Knee, Arthroscopy Shoulder, Myringotomy (Ear Tubes), Right: Total Hip Replacement, Bilateral: Carpal Tunnel Release, Tonsillectomy Other Surgeries: Yes: Appendectomy, Cardiac Catheterization, Cholecystectomy, Colonoscopy, , EGD, Hernia Repair, Hysterectomy-Total, Pacemaker, Sinus Surgery, Other Amputation: No Fractures: Yes (rt knee,lt great toe) - *Social History Smoking Status: Never smoker Alcohol Intake: never Alcohol Intake Frequency:: a few times a week Substance Use Type: denies use *Occupational Status:: other Housing: house Household Members: family *Travel in the last 8 weeks: None - Psychiatric History Pschychiatric History:: Reports:: Anxiety, Depression Family Hx:: Cancer, Diabetes, Hypertension, Thyroid Disorder
== END ==
PROVIDERS: PCP Emergency Medicine; Visit Provider Clinical Nurse Specialist Family Health
DX: M51.16 Intervertebral disc disorders with radiculopathy, lumbar region (principal)
CPT/HCPCS: 99212

== ENCOUNTER → 2020-03-06 16:13 | Outpatient (CLI) | payer MEDICARE, MEDICAID, SELFPAY ==
[2020-03-13 10:12] LABS: Selenium 212 ug/L (100-340)
[2020-03-13 10:15] LABS: Vitamin B1 267.3 nmol/L (66.5-200.0); Zinc 70 ug/dL (56-134)
[2020-03-13 10:19] LABS: Vitamin K1 267.3
== END ==
PROVIDERS: Visit Provider Nurse Practitioner Family
DX: K58.1 Irritable bowel syndrome with constipation (principal); K63.5 Polyp of colon; Z98.84 Bariatric surgery status
CPT/HCPCS: 36415; 82525; 84255; 84425; 84597; 84630

== ENCOUNTER → 2020-03-11 13:56 | Outpatient (CLI) | payer MEDICARE, MEDICAID, SELFPAY ==
--- NOTE | 2020-03-11 14:00 | XR_ITS ---
PROCEDURE: XR HAND LT MIN 3V CLINICAL INDICATION: left hand pain/ trigger finger COMPARISON: No exams were available for comparison FINDINGS: No fracture or dislocation. No lytic or blastic change. There is normal mineralization. Minimal osteoarthritic changes are present at the 1st interphalangeal joint and the DIP of the 2nd and 3rd fingers as well as the PIP of the 2nd 3rd fingers. Mild osteoarthritis of the PIP of the 4th and DIP of the 5th finger Other findings:None. IMPRESSION: Mild osteoarthritic changes otherwise negative Dictated by: Octavio Dickson MD 03/11/2020 14:43 Octavio Dickson MD in [place] 03/11/2020 14:43
== END ==
PROVIDERS: PCP Emergency Medicine; Visit Provider Orthopaedic Surgery
DX: M79.642 Pain in left hand (principal)
CPT/HCPCS: 73130

== ENCOUNTER → 2020-04-03 18:09 | Outpatient (CLI) | payer MEDICARE, MEDICAID, SELFPAY ==
[2020-04-03 19:28] LABS: Basophils # 0.1 K/mm3 (0-0.2); Basophils % 0.6 % (0.1-2.0); Eosinophils # 0.2 K/mm3 (0.0-0.4); Eosinophils % 2.2 % (0.1-12.0); Hematocrit 44.3 % (37.0-47.0); Hemoglobin 14.5 g/dL (12.2-16.2); Lymphocytes # 1.8 K/mm3 (0.7-4.5); Lymphocytes % 19.2 % (10-50); Mean Corpuscular HGB Conc 32.7 g/dL (31.8-35.4); Mean Corpuscular Hemoglobin 34.3 pg (27.0-31.2); Mean Corpuscular Volume 104.7 fl (81-99); Mean Platelet Volume 9.1 fl (7.4-10.4); Monocytes # 0.5 K/mm3 (0.1-1.0); Monocytes % 4.7 % (1.7-9.3); Neutrophils # 7.1 K/mm3 (1.8-7.8); Neutrophils % 73.3 % (37.0-80.0); Platelet Count 258 K/mm3 (142-424); Red Blood Count 4.23 M/mm3 (4.20-5.40); Red Cell Distribution Width 13.5 % (11.5-17.5); White Blood Count 9.6 K/mm3 (4.8-10.8)
[2020-04-03 19:35] LABS: Alanine Aminotransferase 72 U/L (12-78); Albumin Level 4.2 g/dl (3.5-5.0); Albumin/Globulin Ratio 1.4 (1.1-1.8); Alkaline Phosphatase 109 U/L (38-126); Anion Gap 12.6 mEq/L (5-15); Aspartate Amino Transferase 47 U/L (14-36); Bilirubin,Total 0.4 mg/dl (0.2-1.3); Blood Urea Nitrogen 17 mg/dl (7-17); Calcium 10.1 mg/dl (8.4-10.2); Carbon Dioxide 28 mmol/L (22.0-30.0); Chloride 106 mmol/L (98-107); Chol/HDL Ratio 4.7 (1-3.5); Cholesterol 212 mg/dl (140-200); Estimated Glomerular Filt Rate 58 ml/min (>60); GFR (African American) 70 ML/MIN (>60); Globulin 2.9 g/dL (1.3-3.2); Glucose 85 mg/dl (74-100); HDL Cholesterol 45 mg/dl (40-60); Potassium 4.6 mmoL/L (3.5-5.1); Sodium 142 mmol/L (136-145); Total Protein,Serum 7.1 g/dl (6.3-8.2); Triglycerides 275 mg/dl (30-150); VLDL Cholesterol 55 mg/dL (0-40)
[2020-04-03 19:47] LABS: Direct LDL Cholesterol 114.98 mg/dL (100-129)
[2020-04-03 19:53] LABS: T4 (Thyroxine) 5.2 ug/dl (5.53-11.0)
[2020-04-03 20:07] LABS: Thyroid Stimulating Hormone 0.17 uIU/mL (0.465-4.68)
[2020-04-03 20:14] LABS: Hemoglobin A1C 5.2 % (4.0-6.0)
== END ==
PROVIDERS: Visit Provider Nurse Practitioner Family
DX: I10 Essential (primary) hypertension (principal); R06.00 Dyspnea, unspecified; R53.83 Other fatigue; R73.09 Other abnormal glucose; E55.9 Vitamin D deficiency, unspecified; R07.9 Chest pain, unspecified
CPT/HCPCS: 80053; 80061; 82306; 83036; 84436; 84443; 85025

== ENCOUNTER 2020-04-11 16:39 | Emergency (ER) | payer MEDICARE, MEDICAID, SELFPAY ==
[2020-04-11] VITALS (7 sets, daily range): BP systolic 147–187; BP diastolic 91–120; PULSE 73–93; RESP 10–20; TEMP 36.7–37.1; O2SAT 97–100; BMI 36.6
--- NOTE | 2020-04-11 16:35 | ECG_ITS ---
APPROVED REPORT Exam: Resting ECG HR:87 bpm ECG Measurements Heart Rate 87 AXES NM 152 P 21 QRSd 84 QRS -22 QT 368 T 26 QTc 442 Conclusion Normal sinus rhythm Poor r wave progression Abnormal ECG Electronically signed by : Sonido Hackett, 04/12/2020 06:56:35
--- NOTE | 2020-04-11 16:40 | HMH.EDGENADL ---
ED Disposition Clinical Impression: Atypical chest pain Disposition: Home, Self-Care Condition on Discharge: Good Instructions: DI for Atypical Chest Pain Additional Instructions: Follow up with your PCP tuesday. Return to ER if worsening pain or shortness of breath. Referrals: Provider,Referral, [Primary Care Provider] - - Critical Care Critical Care Time: No Attestation: On , the high probability of a clinically significant, sudden or life threatening deterioration of the following system(s) required my full and direct attention, intervention and personal management. The time I documented below is in addition to time spent performing reported procedures but includes the following listed in this critical care notation. Medical Decision Making - Medical Records Medical records reviewed: Yes: I reviewed the patient's medical records. MR Comment: Recent cardiac cath result reviewed - [place] Inquiry Pt receiving controlled substance: No Vital Signs: 04/11/20 16:39 04/11/20 17:39 04/11/20 18:00 Temperature 98.7 F Temperature Source Oral Pulse Rate [Left Radial] 93 H 79 84 Respiratory Rate 20 12 12 Blood Pressure [Right Arm] 149/91 H 168/103 H 162/93 H Blood Pressure Mean [Right Arm] 110 124 116 Blood Pressure Source [Right Arm] Automatic Cuff Automatic Cuff Blood Pressure Position [Right Arm] Sitting Sitting Sitting 02 Sat by Pulse Oximetry 100 99 98 Oxygen Delivery Method Room Air Room Air 04/11/20 18:30 04/11/20 19:00 04/11/20 20:14 Temperature Temperature Source Pulse Rate [Left Radial] 84 76 76 Respiratory Rate 10 L 10 L 16 Blood Pressure [Right Arm] 168/104 H 187/120 H 157/101 H Blood Pressure Mean [Right Arm] 125 142 119 Blood Pressure Source [Right Arm] Automatic Cuff Blood Pressure Position [Right Arm] Sitting 02 Sat by Pulse Oximetry 98 98 99 Oxygen Delivery Method Room Air Room Air - Lab Data Lab Results 04/11/20 16:55: WBC 10.4, RBC 4.01 L, Hgb 13.1, Hct 41.8, MCV 104.2 H, MCH 32.8 H, MCHC 31.4 L, RDW 13.2, Plt Count 347, MPV 7.4, Neut % (Auto) 59.2, Lymph % (Auto) 32.7, Knox % (Auto) 4.7, Eos % (Auto) 2.3, Baso % (Auto) 1.0, Neut # (Auto) 6.2, Lymph # (Auto) 3.4, Knox # (Auto) 0.5, Eos # (Auto) 0.2, Baso # (Auto) 0.1 04/11/20 16:55: Sodium 138, Potassium 4.5, Chloride 99, Carbon Dioxide 33 H, Anion Gap 10.5, BUN 15, Creatinine 0.80, Estimated Creat Clear 116, Estimated GFR 75, Est GFR ( Amer) 91, Glucose 97, Calcium 9.6, Troponin I < 0.01 04/11/20 19:04: Troponin I < 0.01 Result diagrams: 04/11/20 16:55 04/11/20 16:55 Orders (Tests/Meds): ED MEDICATIONS Generic Name Dose Route Start Last Admin Trade Name Freq PRN Reason Stop Dose Admin Sodium Chloride 10 ml 04/11/20 17:26 04/11/20 17:29 Sodium Chloride 0.9% 10ml Syr (Rad Only) IV 05/11/20 17:25 10 ml NEEDED PRN Administration Maintain IV Site Discontinued Medications Generic Name Dose Route Start Last Admin Trade Name Freq PRN Reason Stop Dose Admin Aspirin 324 mg 04/11/20 16:45 04/11/20 16:53 Aspirin 81mg Chewable Tablet PO 04/11/20 16:46 324 mg ONCE ONE Administration Iopamidol 70 ml 04/11/20 17:26 04/11/20 17:29 Iopamidol-370 (76%);100ml Bottle IV 04/11/20 17:27 70 ml ONCE ONE Administration Sodium Chloride 50 ml 04/11/20 17:26 04/11/20 17:29 0.9 % Sodium Chloride 50 Ml Vial IV 04/11/20 17:27 50 ml ONCE ONE Administration ORDERS Category Date Time Status CTA Chest [CT angio chest] Stat Cat Scan 04/11/20 17:03 Taken - Radiology Data #1 Image(s): Chest Image Reviewed: Yes I reviewed the patient's radiology image Preliminary Findings: Normal/NAD - CT Data CT Scan: Chest (CTA) Time Received: 18:09 ([facility] fax) ED CT Reviewed: Yes: I have viewed the radiologist's interpretation Findings Narrative: Negative for acute thoracic pathology. Negative for pulmonary embolism. - ECG Data Tracing #1 EKG inter
--- NOTE | 2020-04-11 16:45 | XR_ITS ---
PROCEDURE: XR CHEST 2V CLINICAL HISTORY: chest pain COMPARISON: CR CXR2V XR chest 2V from 04/17/2018 CR CXR2V XR chest 2V from 06/08/2018 CR [id number] XR ribs LT min 3V w CXR1V from 07/02/[address] CHEST WO CON from 08/17/2019 FINDINGS: Unremarkable cardiovascular structures. Bipolar pacemaker is present from left subclavian approach. No lobar consolidation or collapse. There is a faint nodular opacity in the right midlung not significantly changed No acute bony abnormalities. IMPRESSION: No acute findings. Dictated by: Octavio Dickson MD 04/11/2020 17:18 Octavio Dickson MD in [place] 04/11/2020 17:18
--- NOTE | 2020-04-11 17:00 | PC.NURSE ---
Patient going to radiology
--- NOTE | 2020-04-11 17:03 | CT_ITS ---
PROCEDURE: CT ANGIO CHEST CLINCIAL INDICATION: pleuritic L cp, sob, h/o PE Left-sided pleuritic chest pain COMPARISON: CT CT CHEST WO CON from 08/17/2019 TECHNIQUE: IV Contrast: 70ML Isovue 370 Axial images obtained with sagittal and coronal reformats. All CT scans at the facility use one or more dose reduction, viz: automated exposure control, ma/kV adjustment per patient size (including targeted exams where dose is matched to indication, i.e. head), or iterative reconstruction technique. FINDINGS: No evidence of aortic aneurysm or dissection. No evidence of pulmonary embolus. No effusions or infiltrates. No suspicious pulmonary nodules. There is mild cardiomegaly. Artifact is present from cardiac pacemaker device. Postsurgical changes are present at the GE junction. There has been prior gastric bypass. No acute bony anomalies. There is mild ectasia of the ascending aorta at 3.7 cm. IMPRESSION: No acute finding. Nonacute incidental findings as described above. Dictated by: Octavio Dickson MD 04/12/2020 06:27 Octavio Dickson MD in [place] 04/12/2020 06:27
[2020-04-11 17:05] LABS: Basophils # 0.1 K/mm3 (0-0.2); Eosinophils # 0.2 K/mm3 (0.0-0.4); Eosinophils % 2.3 % (0.1-12.0); Hematocrit 41.8 % (37.0-47.0); Hemoglobin 13.1 g/dL (12.2-16.2); Lymphocytes # 3.4 K/mm3 (0.7-4.5); Lymphocytes % 32.7 % (10-50); Mean Corpuscular HGB Conc 31.4 g/dL (31.8-35.4); Mean Corpuscular Hemoglobin 32.8 pg (27.0-31.2); Mean Corpuscular Volume 104.2 fl (81-99); Mean Platelet Volume 7.4 fl (7.4-10.4); Monocytes # 0.5 K/mm3 (0.1-1.0); Monocytes % 4.7 % (1.7-9.3); Neutrophils # 6.2 K/mm3 (1.8-7.8); Neutrophils % 59.2 % (37.0-80.0); Platelet Count 347 K/mm3 (142-424); Red Blood Count 4.01 M/mm3 (4.20-5.40); Red Cell Distribution Width 13.2 % (11.5-17.5); White Blood Count 10.4 K/mm3 (4.8-10.8)
[2020-04-11 17:09] LABS: Chloride 99 mmol/L (98-107); Potassium 4.5 mmoL/L (3.5-5.1); Sodium 138 mmol/L (136-145)
[2020-04-11 17:12] LABS: Blood Urea Nitrogen 15 mg/dl (7-17); Creatinine Clearance Estimated 116 mL/min (50-200); Estimated Glomerular Filt Rate 75 ml/min (>60); GFR (African American) 91 ML/MIN (>60)
[2020-04-11 17:13] LABS: Anion Gap 10.5 mEq/L (5-15); Calcium 9.6 mg/dl (8.4-10.2); Carbon Dioxide 33 mmol/L (22.0-30.0); Glucose 97 mg/dl (74-100)
--- NOTE | 2020-04-11 17:20 | PC.NURSE ---
pt going to radiology
[2020-04-11 17:28] LABS: Troponin I < 0.01 ng/ml (0.00-0.034)
--- NOTE | 2020-04-11 17:39 | PC.NURSE ---
pt back from radiology
--- NOTE | 2020-04-11 18:12 | ECG_ITS ---
APPROVED REPORT Exam: Resting ECG HR:102 bpm ECG Measurements Heart Rate 102 AXES NV 152 P 73 QRSd 86 QRS 33 QT 368 T 78 QTc 479 Conclusion Sinus tachycardia Late r wave progression Abnormal ECG Electronically signed by : Sonido Hackett, 04/12/2020 06:56:09
[2020-04-11 20:03] LABS: Troponin I < 0.01 ng/ml (0.00-0.034)
== END 2020-04-11 20:44 | disposition home or self-care (01) ==
PROVIDERS: Emergency Provider Emergency Medicine
DX: R07.89 Other chest pain (principal); F41.8 Other specified anxiety disorders; E78.5 Hyperlipidemia, unspecified; I10 Essential (primary) hypertension; Z95.0 Presence of cardiac pacemaker; Z79.899 Other long term (current) drug therapy; Z86.711 Personal history of pulmonary embolism; Z79.01 Long term (current) use of anticoagulants
CPT/HCPCS: 71046; 71275; 80048; 84484; 85025; 93005; 99283; Q9967

== ENCOUNTER 2020-04-29 14:32 | Emergency (ER) | payer MEDICARE, MEDICAID, SELFPAY ==
[2020-04-29 14:40] VITALS: BP 136/74; PULSE 101; RESP 18; TEMP 36.3; O2SAT 99; BMI 39.4
--- NOTE | 2020-04-29 14:44 | XR_ITS ---
PROCEDURE: XR SHOULDER LT MIN 2V CLINICAL INDICATION: PAIN COMPARISON: No exams were available for comparison FINDINGS: No obvious fracture or dislocation. Minimal osteoarthritic changes are present at the glenohumeral joint. There is minimal calcification within the superior aspect of the AC joint. No significant subacromial stenosis. Pacemaker is present from left subclavian approach. Bone plate is present in the lower cervical spine IMPRESSION: Minimal osteoarthritic change, no acute finding. Dictated by: Octavio Dickson MD 04/29/2020 15:05 Octavio Dickson MD in [place] 04/29/2020 15:05
--- NOTE | 2020-04-29 15:05 | HMH.EDUTC ---
[facility] [place] Clinical Impression: Muscle spasm Shoulder strain Qualifiers: Encounter type: initial encounter Laterality: left Qualified Code(s): S46.912A - Strain of unspecified muscle, fascia and tendon at shoulder and upper arm level, left arm, initial encounter Disposition: Home, Self-Care Condition on Discharge: Good Instructions: DI for Shoulder Pain, DI for Muscle Spasm Additional Instructions: *Ibuprofen grant 6 hours with meal as needed for pain/inflammation *Remember you had a Toradol shot in the clinic today, which is similar to Motrin *Not additional anti-inflammatory like motrin, aleve, advil with the above amount of ibuprofen. You can still take Tylenol every 4 hours as needed if you need something else for pain *moist heat every 20 minutes 3-4 times a day to affected area *Muscle relaxer as prescribed by your PCP as needed for muscle spasms but remember, it WILL cause drowsiness You cannot take it and drive, operate machinery or care for small children. *Keep this area active, no movement leads to more stiffness, However take it easy and avoid heavy lifting pushing or pulling *Follow up with you family doctor if no improvement for further treatment and referral to Orthopedics if needed Return if needed Straight to ER if any life threatening symptoms Over the counter Muscle rubs like Biofreeze or patches like salon pas may help with tightness and pain Referrals: Brodie Thompson MD [Primary Care Provider] - As needed Ralph Lau MD [Staff Physician] - Time of Disposition: 15:31 Medical Decision Making - Tex Inquiry Pt receiving controlled substance: No Tex was queried for this patient: No Vital Signs: 04/29/20 14:40 04/29/20 15:39 Temperature 97.4 F L 97.4 F L Temperature Source Oral Pulse Rate 101 H Pulse Rate [Right Brachial] 101 H Respiratory Rate 18 18 Blood Pressure 136/74 Blood Pressure [Right Arm] 136/74 Blood Pressure Mean [Right Arm] 94 Blood Pressure Source [Right Arm] Automatic Cuff Blood Pressure Position [Right Arm] Sitting 02 Sat by Pulse Oximetry 99 Oxygen Delivery Method Room Air Orders (Tests/Meds): ED MEDICATIONS Discontinued Medications Generic Name Dose Route Start Last Admin Trade Name Freq PRN Reason Stop Dose Admin Ketorolac Tromethamine 30 mg 04/29/20 15:19 04/29/20 15:29 Ketorolac 60mg/2ml Vial IM 04/29/20 15:20 30 mg ONCE ONE Administration Medical Decision Narrative: Discussed with patient about moist heat to help with muscle spasm and continue taking prescribed muscle relaxers and follow up with her PCP or Orthopedics for further evaluation if no improvement or any worsening of symptoms [facility] [place] - General Stated complaint: lt shoulder pain, no ao Time Seen by Provider: 04/29/20 15:05 Mode of Arrival: Ambulatory Source of Information: Patient Limitations: No Limitations Description of Symptoms (Recalled from Triage Doc. by RN): PATIENT C/O LEFT SHOULDER PAIN FOR APPROX 1.5 MONTHS HEENT Symptoms (Recalled from RN notes): No Resp Symptoms (Recalled from RN notes): No Skin Symptoms (Recalled from RN notes): No MS Symptoms (Recalled from RN notes): Yes Functional Status (Recalled from RN notes): WNL - History of Present Illness Provider Complaint: Patient states she has been having shoulder pain on and off and that she fell a couple weeks ago and was seen and treated in [place] that she has since seen her PCP that give her steriods and muscle relaxers which did help some State that today physical therapy came out and worked with her and ever since she has been having spasm like pain in her shoulder and wanted to come in and see if there was something else she can get for her shoulder - Related Data Home Medications Medication Instructions Recorded Confirmed albuterol sulfate 90 mcg/actuation 2 puff INHALATION Q4-6H PRN 07/19/17 04/22/20 aerosol inhaler lamotrigine 200 mg tablet 200 mg PO BID tab
[2020-04-29 15:39] VITALS: BP 136/74; PULSE 101; RESP 18; TEMP 36.3; O2SAT 99
== END 2020-04-29 15:44 | disposition home or self-care (01) ==
PROVIDERS: Emergency Provider Nurse Practitioner; PCP Emergency Medicine
DX: S46.912A Strain of unspecified muscle, fascia and tendon at shoulder and upper arm level, left arm, initial encounter (principal); M62.838 Other muscle spasm; F41.8 Other specified anxiety disorders; I25.10 Atherosclerotic heart disease of native coronary artery without angina pectoris; K21.9 Gastro-esophageal reflux disease without esophagitis; E03.9 Hypothyroidism, unspecified; I10 Essential (primary) hypertension; E78.5 Hyperlipidemia, unspecified; Z79.899 Other long term (current) drug therapy; Z88.1 Allergy status to other antibiotic agents; Z88.2 Allergy status to sulfonamides
CPT/HCPCS: G0463; 73030; 96372; 99201

== ENCOUNTER → 2020-05-01 16:06 | Outpatient (CLI) | payer MEDICARE, MEDICAID, SELFPAY ==
--- NOTE | 2020-05-01 16:11 | XR_ITS ---
PROCEDURE: XR FOOT WT BEARING RT 3V CLINICAL INDICATION: pain COMPARISON: CR XR FOOT WT BEARING RT 3V from 01/16/2020 CR XR FOOT RT MIN 3V from 02/20/2020 FINDINGS: There is mild soft tissue swelling involving the medial aspect of the 1st metatarsophalangeal joint. There is some subcutaneous calcification also present at this area. While the calcification could be dystrophic in nature, developing gouty tophi would be included in the differential diagnosis. No bony erosive process however is evident. Correlation with serum uric acid is suggested. There is a healing fracture involving the proximal aspect of the proximal phalanx of the 4th toe as well as an old fracture involving the proximal phalanx centrally of the 3rd toe Hypertrophic changes are present at the distal aspect of the 1st metatarsal. There is pes planus with hypertrophic changes of the talus distally and anteriorly and osteoarthritic change of the talonavicular and navicular cuneiform joint. There is a prominent posterior talar process as well as a small calcaneal spur and Achilles enthesophyte. Other findings:None. IMPRESSION: 1. There is mild soft tissue swelling involving the medial aspect of the 1st metatarsophalangeal joint. There is some subcutaneous calcification also present at this area. While the calcification could be dystrophic in nature, developing gouty tophi would be included in the differential diagnosis. No bony erosive process however is evident. Correlation with serum uric acid is suggested. 2. There is a healing fracture involving the proximal aspect of the proximal phalanx of the 4th toe as well as an old fracture involving the proximal phalanx centrally of the 3rd toe 3. There is pes planus with hypertrophic changes of the talus distally and anteriorly 4. Osteoarthritic change of the talonavicular and navicular cuneiform joint. 5. There is a prominent posterior talar process as well as a small calcaneal spur and Achilles enthesophyte Dictated by: Octavio Dickson MD 05/01/2020 16:36 Octavio Dickson MD in [place] 05/01/2020 16:36
--- NOTE | 2020-05-01 16:11 | XR_ITS ---
PROCEDURE: XR FOOT WT BEARING LT 3V CLINICAL INDICATION: pain COMPARISON: CR XR FOOT WT BEARING RT 3V from 01/16/2020 CR XR FOOT RT MIN 3V from 02/20/2020 FINDINGS: No fracture or dislocation. No lytic or blastic change. There is normal mineralization. Prominent hypertrophic changes are present at distal aspect of the 1st metatarsal consistent with bunion formation with mild hallux valgus. There is pes planus with osteoarthritic change at the talonavicular joint. Bony hypertrophy with osteoarthritis noted at the cuneiform metatarsal junction. No acute fracture or dislocation. No lytic or blastic change. Other findings:None. IMPRESSION: Bunion formation with hallux valgus and osteoarthritis Dictated by: Octavio Dickson MD 05/01/2020 16:40 Octavio Dickson MD in [place] 05/01/2020 16:40
== END ==
PROVIDERS: PCP Emergency Medicine; Visit Provider Podiatrist
DX: M79.671 Pain in right foot (principal); M79.672 Pain in left foot
CPT/HCPCS: 73630

== ENCOUNTER → 2020-05-07 13:51 | Outpatient (CLI) | payer MEDICARE, MEDICAID, SELFPAY ==
--- NOTE | 2020-05-07 13:54 | XR_ITS ---
PROCEDURE: XR SHOULDER LT MIN 2V CLINICAL INDICATION: left shoulder pain/ scap pain COMPARISON: CR [id number] [id number] from 04/02/2017 CR XR SHOULDER LT MIN 2V from 04/29/2020 FINDINGS: There are osteoarthritic changes of the glenohumeral joint which are better demonstrated on today's images. Cardiac pacemaker device is present from left subclavian approach. No acute fracture or dislocation. IMPRESSION: Mild osteoarthritis of the glenohumeral joint Dictated by: Octavio Dickson MD 05/07/2020 15:00 Octavio Dickson MD in [place] 05/07/2020 15:00
== END ==
PROVIDERS: PCP Emergency Medicine; Visit Provider Orthopaedic Surgery
DX: M25.512 Pain in left shoulder (principal)
CPT/HCPCS: 73030

== ENCOUNTER → 2020-05-13 11:25 | Outpatient (CLI) | payer MEDICARE, MEDICAID, SELFPAY ==
--- NOTE | 2020-05-13 11:25 | CA_ITS ---
APPROVED REPORT EXAM: Comprehensive 2D, Doppler, and color-flow Echocardiogram Pillowcase Turner: Miriam Arboleda CRT Ht: 5 ft 4 in Wt: 225lbs BSA: 2.06 BP: 131/60 mmHg Indications: Chest Pain, Shortness of Breath, Palpitations, Peripheral Edema, CAD, GERD, 2D Dimensions LVOT 1.91 cm (M/F) 1.5-2.5 M-Mode Dimensions RVDd 2.72 cm (0.9-2.6) LA Diam 4.52 cm (1.9-4.0) LVDd 5.44 cm (3.5-5.7) Ao Diam 3.70 cm (2.0-3.7) LVDs 2.47 cm (3.5-5.7) IVSd 1.50 cm (0.6-1.1) PWd 0.82 cm (0.6-1.1) EF (Teich) 84.90% FS 54.60% EDV (Teich) 143.70 mL ESV (Teich) 21.70 mL LV Diastology E Decel Time 150.00 (160-240 msec) E/A Ratio 1.12 MED E' 4.60 (< 7 cm/sec) E'/MED E' Ratio 19.50 (>14) LAT E' 6.20 (<10 cm/sec) E/LAT E' Ratio 14.47 (>14) Aortic Valve AO Peak GR. 8.90 mmHg Mitral Valve MV A Velocity 80.00 (40-130 cm/s) E/A Ratio 1.12 MV Decel. Time 150.00 (160-240 ms) Pulmonary Valve PV Peak Velocity 56.00 (50-150 cm/s) Tricuspid Valve TR P. Velocity 270.00 cm/s RAP Estimate 10.00 mmHg RVSP 39.10 mmHg Left Ventricle Left atrium is mildly enlarged, left ventricle is normal size, mild concentric left ventricular hypertrophy, visually estimated ejection fraction 55% with no regional wall motion abnormality. Diastolic parameters are inconclusive. There is abnormal septal motion. Right Ventricle Right atrium and right ventricle mildly enlarged with normal contractility, there is pacemaker lead seen right atrium and right ventricle. Aortic Valve Aortic valve is minimally thickened and fibrosed, there is no aortic stenosis or aortic insufficiency. Mitral Valve Mitral valve is grossly normal, there is mild mitral regurgitation. Tricuspid Valve Tricuspid valve grossly normal, there is mild tricuspid regurgitation, calculated right ventricular systolic pressure is 39 mmHg. Pulmonic Valve Pulmonic valve is poorly visualized. Great Vessels Aortic root is normal size. Pericardium No significant pericardial effusion noted. Conclusion 1. Mild biatrial enlargement, normal left ventricular size, mild concentric left ventricular hypertrophy, visually estimated ejection fraction 55% with no regional wall motion abnormality, diastolic parameters are inconclusive. 2. Mildly enlarged right ventricle with normal contractility. 3. Mild mitral and tricuspid regurgitation, calculated right ventricular systolic pressure 39 mmHg. 4. No significant pericardial effusion noted. Electronically signed by : Mark Vasquez, 05/14/2020 06:07:02
== END ==
PROVIDERS: PCP Emergency Medicine; Visit Provider Nurse Practitioner Family
DX: E66.9 Obesity, unspecified (principal); I10 Essential (primary) hypertension; R00.2 Palpitations; R06.00 Dyspnea, unspecified; R07.9 Chest pain, unspecified; R42 Dizziness and giddiness; R60.9 Edema, unspecified; Z95.0 Presence of cardiac pacemaker
CPT/HCPCS: 93306

== ENCOUNTER → 2020-05-20 08:09 | Outpatient (CLI) | payer MEDICARE, MEDICAID, SELFPAY ==
[2020-05-20 08:37] LABS: Chloride 106 mmol/L (98-107); Potassium 4.7 mmoL/L (3.5-5.1); Sodium 140 mmol/L (136-145)
[2020-05-20 08:40] LABS: Anion Gap 10.7 mEq/L (5-15); Blood Urea Nitrogen 24 mg/dl (7-17); Calcium 9.4 mg/dl (8.4-10.2); Carbon Dioxide 28 mmol/L (22.0-30.0); Estimated Glomerular Filt Rate 39 ml/min (>60); GFR (African American) 48 ML/MIN (>60); Glucose 79 mg/dl (74-100)
[2020-05-20 08:41] LABS: Magnesium 1.9 mg/dl (1.6-2.3)
== END ==
PROVIDERS: Physician Assistant; Visit Provider Nurse Practitioner Family
DX: E66.9 Obesity, unspecified (principal); I10 Essential (primary) hypertension; R00.2 Palpitations; R06.00 Dyspnea, unspecified; R07.9 Chest pain, unspecified; R42 Dizziness and giddiness; R60.9 Edema, unspecified; Z95.0 Presence of cardiac pacemaker; R06.02 Shortness of breath; R07.89 Other chest pain
CPT/HCPCS: 80048; 83735

== ENCOUNTER 2020-05-21 11:35 | Outpatient (RCR) | payer MEDICARE, MEDICAID, SELFPAY | END 2020-05-21 12:14 | disposition home or self-care (01) | LOC: OT 11:35 | PROVIDERS: Visit Provider Orthopaedic Surgery | DX: M77.12 Lateral epicondylitis, left elbow (principal); M25.512 Pain in left shoulder | CPT/HCPCS: 97763 ==

== ENCOUNTER → 2020-05-24 11:12 | Outpatient (CLI) | payer MEDICARE, MEDICAID, SELFPAY ==
[2020-05-24 11:50] LABS: Chloride 108 mmol/L (98-107); Potassium 4.6 mmoL/L (3.5-5.1); Sodium 140 mmol/L (136-145)
[2020-05-24 11:53] LABS: Anion Gap 8.6 mEq/L (5-15); Blood Urea Nitrogen 30 mg/dl (7-17); Calcium 9.8 mg/dl (8.4-10.2); Carbon Dioxide 28 mmol/L (22.0-30.0); Estimated Glomerular Filt Rate 52 ml/min (>60); GFR (African American) 63 ML/MIN (>60); Glucose 95 mg/dl (74-100)
[2020-05-24 12:14] LABS: Glucose,Fasting 96 mg/dl (74-100)
[2020-05-24 13:08] LABS: Glucose 1 Hour 84 mg/dL (74-100)
[2020-05-24 14:05] LABS: Glucose 2 Hour 84 mg/dL (74-100)
== END ==
PROVIDERS: Nurse Practitioner Family; Visit Provider Physician Assistant
DX: I10 Essential (primary) hypertension (principal); R53.83 Other fatigue; R73.09 Other abnormal glucose; E66.9 Obesity, unspecified; R00.2 Palpitations; R06.02 Shortness of breath; R07.89 Other chest pain; R42 Dizziness and giddiness
CPT/HCPCS: 36415; 80048; 82951

== ENCOUNTER → 2020-07-08 10:20 | Outpatient (CLI) | payer MEDICARE, MEDICAID, SELFPAY ==
--- NOTE | 2020-07-08 10:32 | XR_ITS ---
PROCEDURE: XR CHEST 2V CLINICAL HISTORY: chest pain Left-sided chest pain COMPARISON: CR CXR2V XR chest 2V from 06/08/2018 CR [id number] XR ribs LT min 3V w CXR1V from 07/02/2018 CR XR CHEST 2V from 04/11/[address] ANGIO CHEST from 04/11/2020 FINDINGS: Bipolar pacemaker is present from left subclavian approach. There is cardiomegaly without failure. Vague nodular opacity is noted in the right midlung and may be due to a granuloma as seen on recent CT scan. Lungs are otherwise clear. There is a bone plate along the lower cervical spine. IMPRESSION: Mild cardiomegaly with bipolar pacemaker in place. No change with no acute finding.. Dictated by: Octavio Dickson MD 07/08/2020 11:43 Octavio Dickson MD in [place] 07/08/2020 11:43
== END ==
PROVIDERS: PCP Nurse Practitioner Family; Visit Provider Urology
DX: E66.9 Obesity, unspecified (principal); I10 Essential (primary) hypertension; I27.20 Pulmonary hypertension, unspecified; R06.02 Shortness of breath; R07.89 Other chest pain; R42 Dizziness and giddiness; R60.9 Edema, unspecified; Z95.0 Presence of cardiac pacemaker
CPT/HCPCS: 71046

== ENCOUNTER → 2020-08-05 17:32 | Outpatient (CLI) | payer MEDICARE, MEDICAID, SELFPAY ==
[2020-08-05 18:12] LABS: Basophils # 0.1 K/mm3 (0-0.2); Eosinophils # 1.6 K/mm3 (0.0-0.4); Hematocrit 37.8 % (37.0-47.0); Hemoglobin 11.5 g/dL (12.2-16.2); Lymphocytes # 2.6 K/mm3 (0.7-4.5); Lymphocytes % 24.5 % (10-50); Mean Corpuscular HGB Conc 30.5 g/dL (31.8-35.4); Mean Corpuscular Volume 118.1 fl (81-99); Mean Platelet Volume 7.6 fl (7.4-10.4); Monocytes # 0.5 K/mm3 (0.1-1.0); Monocytes % 4.5 % (1.7-9.3); Neutrophils # 5.7 K/mm3 (1.8-7.8); Neutrophils % 55.1 % (37.0-80.0); Platelet Count 343 K/mm3 (142-424); Red Cell Distribution Width 13.7 % (11.5-17.5); White Blood Count 10.4 K/mm3 (4.8-10.8)
[2020-08-05 19:02] LABS: Chloride 103 mmol/L (98-107); Potassium 4.8 mmoL/L (3.5-5.1); Sodium 139 mmol/L (136-145)
[2020-08-05 19:04] LABS: Blood Urea Nitrogen 18 mg/dl (7-17); Estimated Glomerular Filt Rate 52 ml/min (>60); GFR (African American) 63 ML/MIN (>60)
[2020-08-05 19:05] LABS: Alanine Aminotransferase 21 U/L (12-78); Albumin Level 3.9 g/dl (3.5-5.0); Albumin/Globulin Ratio 1.4 (1.1-1.8); Alkaline Phosphatase 78 U/L (38-126); Anion Gap 8.8 mEq/L (5-15); Aspartate Amino Transferase 27 U/L (14-36); Bilirubin,Total 0.3 mg/dl (0.2-1.3); Calcium 9.9 mg/dl (8.4-10.2); Carbon Dioxide 32 mmol/L (22.0-30.0); Globulin 2.8 g/dL (1.3-3.2); Glucose 93 mg/dl (74-100); Total Protein,Serum 6.7 g/dl (6.3-8.2)
[2020-08-05 20:54] LABS: Coronavirus 19 IgG Antibody Positive (Negative); Coronavirus 19 IgM Antibody Negative (Negative)
== END ==
PROVIDERS: Visit Provider Orthopaedic Surgery
DX: Z01.818 Encounter for other preprocedural examination (principal); Z20.822 Contact with and (suspected) exposure to COVID-19; G56.02 Carpal tunnel syndrome, left upper limb; G56.22 Lesion of ulnar nerve, left upper limb
CPT/HCPCS: 36415; 80053; 85025; 86328

== ENCOUNTER 2020-08-07 10:59 | Day surgery (SDC) | payer MEDICARE, MEDICAID, SELFPAY ==
[2020-08-06 15:37] VITALS: BMI 37.8
[2020-08-07] VITALS (8 sets, daily range): BP systolic 111–127; BP diastolic 55–86; PULSE 61–64; RESP 14–18; TEMP 36.2–36.5; O2SAT 93–99
[2020-08-07 11:41] LABS: POC Glucose,Bedside 94 (70-110)
--- NOTE | 2020-08-07 14:49 | P.PN_ITS ---
[facility] Anesthesia Checklist - Patient Identification Patient Identification: Arm Band - Structural Data Admitted From: Emergency Dept Planned Operative Procedure/s: Carpal tunnel release Consent for Planned Operative Procedure(s) Verified: Yes - Additional verifications Anesthesia Reactions: No Hx Blood Transfusions: Yes (2007) Blood Transfusion Reaction: No - Airway Assessment C-Spine Mobility Assessed: Yes TMJ Mobility Assessed: Yes Dentition: Good Dentition - Neurological Assessment Level of Consciousness: Awake, Alert, Appropriate - Anesthesia Plan Anesthesia Risk discussed: Yes Anesthesia Plan: Verified ASA Class: III Anesthesia Type: General [facility] History I have reviewed the patient's past medical history: Yes Medical History: Reports:: Anxiety, Asthma, Coronary Artery Disease, Depression, Gastroesophageal Reflux Disease(GERD), Hyperlipidemia, Hypertension, Internal Pacemaker, Lung Disease, Palpitations, Pulmonary Embolism Denies:: Cancer, Diabetes Mellitus Type 1, Diabetes Mellitus Type 2, MRSA, Seizures *Have you ever received a pneumonia vaccine?: No *Have you received a flu vaccine this season?: No Other Medical History: Reports: Anemia, Arthritis, Hypothyroidism, Sinus Problems, Other. Denies: Blood Transfusion Reaction Anesthesia experience/problems:: None Laterality Cases: Left: Arthroscopy Knee, Arthroscopy Shoulder, Myringotomy (Ear Tubes), Right: Total Hip Replacement, Bilateral: Carpal Tunnel Release, Tonsillectomy, Total Knee Replacement Other Surgeries: Yes: Appendectomy, Bariatric Surgery, Cardiac Catheterization, Cholecystectomy, Colonoscopy, , EGD, Hernia Repair, Hysterectomy-Total, Pacemaker, Sinus Surgery, Other Amputation: No Fractures: Yes (rt knee,lt great toe) - *Social History Smoking Status: Never smoker Alcohol Intake: never Alcohol Intake Frequency:: a few times a week Substance Use Type: denies use *Occupational Status:: unemployed Housing: house Household Members: family *Travel in the last 8 weeks: None - Psychiatric History Pschychiatric History:: Reports:: Anxiety, Depression Family Hx:: Cancer, Diabetes, Hypertension, Thyroid Disorder
--- NOTE | 2020-08-07 16:38 | HMH.ANESI ---
[facility] Anesthesia Record Part I Intake, IV Amount: 800 Estimated blood loss (mL): 5 Urine output (mL): 0 Blood Pressure: 119/73 SaO2: 97 Pulse Rate: 61 Respiratory Rate: 14 Temperature: 97.6 F Patient is:: Drowsy Stable to PACU at:: 16:33
--- NOTE | 2020-08-07 17:17 | HMH.OPNOTE ---
Date of procedure: 08/07/20 Pre-op Diagnosis:: 1. Recurrent carpal tunnel syndrome, left 2. Guyon's tunnel syndrome, left Post-op Diagnosis:: Same Procedure performed:: 1. Open Guyon's tunnel release, left wrist 2. Open redo carpal tunnel release, left wrist Surgeon:: Ralph Lau MD STUDIO MUSICIAN:: Other (Darren Aguero) Anesthesia: LMA Estimated blood loss (mL): 5 Clinical Note:: Patient is a 54-year-old female with recurrent left carpal tunnel syndrome and left Guyon's tunnel syndrome with severe symptoms. EMG/NCV results confirmed ulnar and median nerve compression at the wrist. Her symptoms are severe and gradually worsening and patient failed to respond adequately to conservative management. Therefore, a Guyon's tunnel and redo carpal tunnel release surgery on the left side is necessary to relieve symptoms, preserve the remaining fibers of the median nerve, improve function and decrease the pain, paresthesias and weakness and to prevent permanent nerve damage. Please refer to my office note for full details. Operative findings:: The intraoperative findings showed tight compression of the ulnar nerve in the Guyon's canal; the median nerve is also very tightly compressed. Both the nerves are hyperemic and constricted secondary to the compression. No ganglion cyst, ulnar artery thrombosis or other external causes for compression were noted in the Guyon's canal. Moderate synovitis is noted in the carpal tunnel. The flexor retinaculum was noted to be thick and tight distally. There were no space-occupying lesions within the Guyon's tunnel and carpal tunnel. Operative note:: On the day of the surgery the patient and her son were met in the preoperative area. Patient was positively identified and the operative site and side was marked and initialed by me. A physical examination was performed and the chart was updated. I again discussed the procedure, risks and benefits and alternatives with the patient. The complications discussed include but are not limited to- bleeding, injury to nerves, blood vessels and tendons, infection, wound dehiscence, incomplete relief/continued pain, persistent numbness, palmar hypersensitivity, pillar pain, DVT/PE, complex regional pain syndrome(CRPS), worsening of nerve damage, failure of the condition to improve, incomplete return of function, bowstringing of tendons, weakness of printing bindery assistant strength, recurrence, failure of the surgery to accomplish the desired goals, decreased use of the hand, loss of use of the arm, loss of the hand or arm, loss of life. Likely need for further surgery in the future has been discussed. I have told her that I will be making a longer incision crossing the wrist crease at an angle and have indicated to the patient where the proposed incision would be made and also discussed the possibility of extending the incision if needed to accomplish an effective release of both the ulnar and median nerves. We have discussed how the goal of surgery is to protect the nerve fibers which have remained healthy and hopefully reverse the symptoms of the fibers which are compromised but still recoverable. We have explained that, the nerve fibers that are permanently damaged will not recover. Patient asked appropriate questions and all have been answered by me. Patient understood the risks, agreed to proceed with surgery, signed the consent form and no guarantees or assurances were given or implied. The patient was then brought to the operating room and placed supine on the operating table. The left upper extremity was placed over a side table. All the bony prominences were well-padded. The patient had a general anesthesia administered by the servicer. A well-padded tourniquet cuff was placed over the upper arm. The left upper extremity was prepped and draped in the usual sterile fashion. A preprocedure timeout was performed as per hospital policy. The Rodriguez's landmarks and bony landmarks were marked on the skin with a
--- NOTE | 2020-08-08 12:37 | P.PN_ITS ---
[facility] Anesthesia Record Part II Discharge Time: 16:55 Destination: Surgical Day Care (OP Surgery) PACU nurse assessment reviewed?: Yes Patient Condition:: Good Anesthesia Complications:: None Swallowing reflex intact?: Yes Cyanosis?: No Blood Pressure: 111/60 Pulse Rate: 64 Temperature: 97 F Mental Status: Alert & Oriented Pain level:: 0 Nausea and/or vomitting:: None Intake, IV Amount: 600
[2020-08-08 12:38] VITALS: BP 111/60; PULSE 64; TEMP 36.1
== END 2020-08-07 17:30 | disposition home or self-care (01) ==
LOC: OR 11:02
PROVIDERS: PCP Nurse Practitioner Family; Visit Provider Orthopaedic Surgery
PROC: (CPT 64721; principal; 2020-08-07 12:15)
DX: G56.02 Carpal tunnel syndrome, left upper limb (principal); G56.22 Lesion of ulnar nerve, left upper limb; Z79.899 Other long term (current) drug therapy
CPT/HCPCS: 64719; 64721; 82962; 96374; J2405

== ENCOUNTER → 2020-09-08 12:42 | Outpatient (CLI) | payer MEDICARE, MEDICAID, SELFPAY | PROVIDERS: PCP Nurse Practitioner Family; Visit Provider Nurse Practitioner Family | DX: Z01.812 Encounter for preprocedural laboratory examination (principal); Z11.52 Encounter for screening for COVID-19; M20.10 Hallux valgus (acquired), unspecified foot | CPT/HCPCS: U0003 ==

== ENCOUNTER 2020-10-06 13:00 | Outpatient (RCR) | payer MEDICARE, MEDICAID, SELFPAY ==
--- NOTE | 2020-09-18 10:02 | HMH.OTOPEV ---
OT Inpatient Evaluation Rehab OT Outpatient Eval Start: 09/18/20 09:52 Freq: Status: Active Protocol: Document 09/18/20 09:53 DADORIS (Rec: 09/18/20 10:00 NELLY [id number]) Electronically Signed By Dea Chaudhari, OT 09/18/20 09:53 Outpatient Therapy Subjective History Subjective History Date of procedure: 08/07/20 Pre-op Diagnosis:: 1. Carpal tunnel syndrome, left 2. Guyon's tunnel syndrome, left Post-op Diagnosis:: Same Procedure performed:: 1. Open Guyon's tunnel release, left wrist 2. Open carpal tunnel release , left wrist Surgeon:: Ralph Lau MD OWNER MANAGER:: Other (Darren Aguero) Anesthesia: LMA Estimated blood loss (mL): 5 Clinical Note:: Patient is a 54-year-old female with recurrent left Guyon's tunnel and carpal tunnel syndrome with severe symptoms. EMG/NCV results confirmed ulnar and median nerve compression at the wrist . Her symptoms are severe and gradually worsening and patient failed to respond adequately to conservative management. Patient referred to skilled OP OT services for s/p L carpal tunnel release and guyon's tunnel release for hand therapy. Patient is currently 6 weeks out from post-op as of this date. 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
== END 2020-12-10 14:29 | disposition home or self-care (01) ==
LOC: OT 13:00
PROVIDERS: PCP Nurse Practitioner Family; Visit Provider Orthopaedic Surgery
DX: G56.02 Carpal tunnel syndrome, left upper limb (principal); Z48.89 Encounter for other specified surgical aftercare
CPT/HCPCS: 97110; 97140; 97165

== ENCOUNTER → 2020-10-16 18:14 | Outpatient (CLI) | payer MEDICARE, MEDICAID, SELFPAY | PROVIDERS: Visit Provider Nurse Practitioner Family | DX: J02.9 Acute pharyngitis, unspecified (principal) ==

== ENCOUNTER → 2020-11-11 17:45 | Outpatient (CLI) | payer MEDICARE, MEDICAID, SELFPAY | PROVIDERS: Visit Provider Nurse Practitioner Family | DX: N39.0 Urinary tract infection, site not specified (principal) | CPT/HCPCS: 87086; 87088; 87186 ==

== ENCOUNTER 2020-12-07 12:50 | Emergency (ER) | payer MEDICARE, MEDICAID, SELFPAY ==
[2020-12-07] VITALS (11 sets, daily range): BP systolic 99–122; BP diastolic 59–68; PULSE 68–84; RESP 12–17; TEMP 36.8–36.9; O2SAT 94–99; BMI 36.3
--- NOTE | 2020-12-07 12:54 | ECG_ITS ---
APPROVED REPORT Exam: Resting ECG HR:82 bpm ECG Measurements Heart Rate 82 AXES NJ 186 P 15 QRSd 100 QRS -14 QT 404 T 33 QTc 472 Conclusion Normal sinus rhythm Normal ECG Electronically signed by : Sonido Hackett, 12/10/2020 21:44:46
[2020-12-07 13:26] LABS: Basophils # 0.1 K/mm3 (0-0.2); Basophils % 0.7 % (0.1-2.0); Eosinophils # 0.3 K/mm3 (0.0-0.4); Eosinophils % 2.7 % (0.1-12.0); Hematocrit 38.4 % (37.0-47.0); Hemoglobin 12.6 g/dL (12.2-16.2); Lymphocytes # 1.7 K/mm3 (0.7-4.5); Lymphocytes % 17.2 % (10-50); Mean Corpuscular HGB Conc 32.7 g/dL (31.8-35.4); Mean Corpuscular Hemoglobin 31.9 pg (27.0-31.2); Mean Corpuscular Volume 97.5 fl (81-99); Mean Platelet Volume 8.2 fl (7.4-10.4); Monocytes # 0.4 K/mm3 (0.1-1.0); Monocytes % 4.3 % (1.7-9.3); Neutrophils # 7.2 K/mm3 (1.8-7.8); Platelet Count 239 K/mm3 (142-424); Red Blood Count 3.93 M/mm3 (4.20-5.40); Red Cell Distribution Width 14.8 % (11.5-17.5); White Blood Count 9.7 K/mm3 (4.8-10.8)
[2020-12-07 13:28] LABS: Chloride 107 mmol/L (98-107); Sodium 140 mmol/L (136-145)
[2020-12-07 13:29] LABS: Blood Urea Nitrogen 13 mg/dl (7-17); Creatinine Clearance Estimated 110 mL/min (50-200); Estimated Glomerular Filt Rate 65 ml/min (>60); GFR (African American) 79 ML/MIN (>60)
[2020-12-07 13:31] LABS: Alanine Aminotransferase 31 U/L (12-78); Albumin Level 4.4 g/dl (3.5-5.0); Albumin/Globulin Ratio 1.5 (1.1-1.8); Alkaline Phosphatase 94 U/L (38-126); Aspartate Amino Transferase 34 U/L (14-36); Bilirubin,Total 0.6 mg/dl (0.2-1.3); Carbon Dioxide 23 mmol/L (22.0-30.0); Lipase 28 U/L (23-300); Total Protein,Serum 7.4 g/dl (6.3-8.2)
[2020-12-07 13:32] LABS: Calcium 9.3 mg/dl (8.4-10.2); Glucose 100 mg/dl (74-100)
[2020-12-07 13:43] LABS: Troponin I < 0.01 ng/ml (0.00-0.034)
--- NOTE | 2020-12-07 13:45 | HMH.EDGENADL ---
ED Disposition Clinical Impression: UTI (urinary tract infection) Qualifiers: Urinary tract infection type: acute cystitis Hematuria presence: without hematuria Qualified Code(s): N30.00 - Acute cystitis without hematuria Disposition: Home, Self-Care Condition on Discharge: Good Prescriptions: Amoxicillin/Potassium Clav [Augmentin 500mg tab] 1 tab PO BID 5 Days #10 tab Prescription Printed Erythromycin Base [Erythromycin 1gm opth ointment] 1 gm OP Q6H #1 oint...g. Prescription Printed Referrals: Manuel Cunha APRN [Primary Care Provider] - - Critical Care Critical Care Time: No Attestation: On , the high probability of a clinically significant, sudden or life threatening deterioration of the following system(s) required my full and direct attention, intervention and personal management. The time I documented below is in addition to time spent performing reported procedures but includes the following listed in this critical care notation. Medical Decision Making - Medical Records Medical records reviewed: Yes: I reviewed the patient's medical records. - [place] Inquiry Pt receiving controlled substance: No [place] was queried for this patient: No Vital Signs: 12/07/20 12:59 12/07/20 13:34 12/07/20 14:08 Temperature 98.5 F Temperature Source Oral Pulse Rate 73 75 Pulse Rate [Right] 84 Respiratory Rate 16 Blood Pressure 107/64 L Blood Pressure [Right Arm] 103/59 L Blood Pressure Mean [Right Arm] 73 Blood Pressure Source Automatic Cuff Blood Pressure Position Sitting 02 Sat by Pulse Oximetry 97 94 L Oxygen Delivery Method Room Air - Lab Data Lab Results 12/07/20 13:11: WBC 9.7, RBC 3.93 L, Hgb 12.6, Hct 38.4, MCV 97.5, MCH 31.9 H, MCHC 32.7, RDW 14.8, Plt Count 239, MPV 8.2, Neut % (Auto) 75.0, Lymph % (Auto) 17.2, [place] % (Auto) 4.3, Eos % (Auto) 2.7, Baso % (Auto) 0.7, Neut # (Auto) 7.2, Lymph # (Auto) 1.7, [place] # (Auto) 0.4, Eos # (Auto) 0.3, Baso # (Auto) 0.1 12/07/20 13:11: Sodium 140, Potassium 4.0, Chloride 107, Carbon Dioxide 23, Anion Gap 14.0, BUN 13, Creatinine 0.90, Estimated Creat Clear 110, Estimated GFR 65, Est GFR ( Amer) 79, Glucose 100, Calcium 9.3, Total Bilirubin 0.6, AST 34, ALT 31, Alkaline Phosphatase 94, Troponin I < 0.01, Total Protein 7.4, Albumin 4.4, Globulin 3.0, Albumin/Globulin Ratio 1.5, Lipase 28 12/07/20 14:40: Urine Color Yellow, Urine Appearance Clear, Urine pH 5.5, Ur Specific [place] 1.025, Urine Protein Negative, Urine Glucose (UA) Negative, Urine Ketones Negative, Urine Blood Negative, Urine Nitrate Negative, Urine Bilirubin Negative, Urine Urobilinogen 0.2, Ur Leukocyte Esterase Trace, Urine RBC None, Urine WBC Occasional, Ur Squamous Epith Cells 3-5, Urine Bacteria None 12/07/20 15:35: Troponin I < 0.01 Result diagrams: 12/07/20 13:11 12/07/20 13:11 Orders (Tests/Meds): ED MEDICATIONS Generic Name Dose Route Start Last Admin Trade Name Freq PRN Reason Stop Dose Admin Ketorolac Tromethamine 30 mg 12/07/20 13:30 12/07/20 13:30 Ketorolac 30mg/Ml Vial IV 12/12/20 13:29 30 mg Q6H NKECHI Administration Discontinued Medications Generic Name Dose Route Start Last Admin Trade Name Freq PRN Reason Stop Dose Admin Sodium Chloride 1,000 mls @ 999 mls/hr 12/07/20 13:30 12/07/20 13:30 Sod Chlor 0.9% 1000ml Bag IV 12/07/20 14:30 999 mls/hr .Q1H1M NKECHI Administration Ondansetron HCl 4 mg 12/07/20 13:18 12/07/20 13:30 Ondansetron 4mg/2ml Vial IV 12/07/20 13:19 4 mg ONCE ONE Administration ORDERS Category Date Time Status Lactic Acid Stat Lab 12/07/20 13:17 Ordered Troponin I Q3H Lab 12/07/20 19:30 Ordered - ECG Data Tracing #1 I reviewed this ECG and interpreted as documented below: ECG initial impression date: 12/07/20 ECG initial impression time: 12:55 Normal Sinus Rhythm: Yes - KEVEN Score for Non-Stemi Age of Patient: 50-59 years old Heart Rate: 70-89 bpm Systolic Bloo
--- NOTE | 2020-12-07 13:54 | XR_ITS ---
PROCEDURE INFORMATION: Exam: XR Chest Exam date and time: 12/07/2020 1:54 PM Age: 54 years old Clinical indication: Sternal or substernal pain; Prior surgery; Surgery date: 6+ months; Surgery type: Patient had pacemaker placed 2006; Patient HX: Chest pressure for a couple of weeks that comes and goes. Worse today. ; Additional info: Chest pain TECHNIQUE: Imaging protocol: XR of the chest. Views: 1 view. COMPARISON: CR XR CHEST 2V 07/08/2020 10:35 AM FINDINGS: Tubes, catheters and devices: Pacer leads stable. Lungs: No focal consolidation. Pleural spaces: Unremarkable. No pleural effusion. No pneumothorax. Heart/Mediastinum: Cardiac silhouette stable. Bones/joints: Unremarkable. IMPRESSION: No focal consolidation.
[2020-12-07 14:53] LABS: Microscopic, Urine URINE MICROSCOPIC (MICROSCOPIC)
[2020-12-07 14:55] LABS: Appearance,Urine CLEAR (Clear); Bilirubin,Urine Negative (Negative); Blood, Urine Negative (Negative); Color,Urine YELLOW (Yellow); Glucose,Urine (UA) Negative (Negative); Ketones,Urine Negative (Negative); Leukocyte Esterase,Urine TRACE (Negative); Nitrate,Urine Negative (Negative); PH,Urine 5.5 (5.0-8.5); Protein,Urine Negative (Negative); Specific Gravity, Urine 1.025 (1.005-1.030); Urobilinogen,Urine 0.2 EU/dl (0.2)
[2020-12-07 15:00] LABS: WBC,Urine Occasional #/hpf (0-3)
[2020-12-07 15:59] LABS: Troponin I < 0.01 ng/ml (0.00-0.034)
== END 2020-12-07 17:10 | disposition home or self-care (01) ==
PROVIDERS: Emergency Provider Emergency Medicine; PCP Nurse Practitioner Family
DX: N30.00 Acute cystitis without hematuria (principal); I10 Essential (primary) hypertension; E78.5 Hyperlipidemia, unspecified; F41.8 Other specified anxiety disorders; K21.9 Gastro-esophageal reflux disease without esophagitis; Z95.0 Presence of cardiac pacemaker; Z88.2 Allergy status to sulfonamides; Z79.899 Other long term (current) drug therapy
CPT/HCPCS: 71045; 80053; 81001; 83690; 84484; 85025; 93005; 96365; 99282; 99283; J2405

== ENCOUNTER → 2021-01-06 11:06 | Outpatient (CLI) | payer MEDICARE, MEDICAID, SELFPAY ==
--- NOTE | 2021-01-06 11:06 | MM_ITS ---
PROCEDURE: MM DIG SCREENING MAMM BI W/CAD Digital Breast Tomosynthesis Included CLINICAL INDICATION: screening xmg COMPARISON: MG DMSB DIG MAMM-SCREEN ENRIQUE W/CAD from 10/26/2016 MG SCBI MM Dig screening mamm BI w/CAD from 01/11/2018 MG DXRT MM Dig mamm DX unilat RT CAD from 01/20/2018 MG MM DIG SCREENING MAMM BI W/CAD from 01/17/2019 TECHNIQUE: Standard CC and MLO images and 3D Tomosynthesis was obtained. R2 CAD reviewed. FINDINGS: Average fibroglandular tissue. Bilateral benign-appearing calcifications. 7 x 3 mm opacity is present in the central aspect of the right breast and may represent the nodule that was noted on spot compression view of 01/20/2018 but appears slightly more anterior and may be related to the positioning. Six-month follow-up suggested. Pacemaker artifact noted on the left. Left breasts an otherwise unremarkable appearance. IMPRESSION: Probably benign findings right breast. Recommend six-month follow-up Negative left breast BI-RAD Category: 3 Probably Benign Finding Short Term Follow-Up FOLLOW-UP: 6M 6 Month Follow-up (A letter has been sent to the patient regarding results of the study.) Dictated by: Octavio Dickson MD 01/14/2021 18:15 Octavio Dickson MD in [place] 01/14/2021 18:15
== END ==
PROVIDERS: PCP Nurse Practitioner Family; Visit Provider Nurse Practitioner Obstetrics & Gynecology
DX: Z12.31 Encounter for screening mammogram for malignant neoplasm of breast (principal)
CPT/HCPCS: 77063; 77067

== ENCOUNTER 2021-01-06 11:29 | Emergency (ER) | payer MEDICARE, MEDICAID, SELFPAY ==
[2021-01-06 11:38] VITALS: BP 109/60; PULSE 66; RESP 18; TEMP 37.2; O2SAT 98; BMI 36.3
[2021-01-06 13:06] VITALS: BP 127/80; PULSE 66; RESP 17; TEMP 36.9; O2SAT 99; BMI 36.3
--- NOTE | 2021-01-06 13:11 | HMH.EDUTC ---
[facility] [place] Clinical Impression: Left buttock abscess, Cellulitis of left buttock Disposition: Home, Self-Care Condition on Discharge: Good Instructions: Cellulitis, Boil Additional Instructions: Keep the affected area clean and dry. Follow up with your regular doctor. Take the antibiotics as directed and apply the topical antibiotics as directed. Apply warm wet compresses to the affected area three or four times per day. GO TO THE ER FOR ANY WORSENING SYMPTOMS Prescriptions: Mupirocin [Bactroban 2% Ointment 22gm tube] 1 applicatio TP TID 7 Days #1 tube Transmission Status: Received by [id number] Doxycycline Hyclate [Doxycycline 100mg Capsule] 100 mg PO Q12 10 Days #20 cap Transmission Status: Received by [id number] Referrals: Manuel Cunha APRN [Primary Care Provider] - Forms: Work/School Release Time of Disposition: 13:16 Medical Decision Making - Medical Records Medical records reviewed: Yes: I reviewed the patient's medical records. - [place] Inquiry Pt receiving controlled substance: No Vital Signs: 01/06/21 11:38 01/06/21 13:06 01/06/21 13:27 Temperature 98.9 F 98.4 F 98.4 F Temperature Source Oral Oral Pulse Rate 66 Pulse Rate [Left Radial] 66 66 Respiratory Rate 18 17 17 Blood Pressure 127/80 Blood Pressure [Left Arm] 109/60 L 127/80 Blood Pressure Mean [Left Arm] 76 95 Blood Pressure Source [Left Arm] Automatic Cuff Blood Pressure Position [Left Arm] Sitting 02 Sat by Pulse Oximetry 98 99 Oxygen Delivery Method Room Air Orders (Tests/Meds): ORDERS Category Date Time Status Wound Culture and Gram Stain Stat Micro 01/06/21 13:20 Results [facility] [place] HPI - General Stated complaint: painful insect bite, body aches, fever Time Seen by Provider: 01/06/21 13:11 Mode of Arrival: Ambulatory Source of Information: Patient Limitations: No Limitations Description of Symptoms (Recalled from Triage Doc. by RN): Bug bite on right buttocks HEENT Symptoms (Recalled from RN notes): No Resp Symptoms (Recalled from RN notes): No Skin Symptoms (Recalled from RN notes): Yes MS Symptoms (Recalled from RN notes): No Functional Status (Recalled from RN notes): wnl - History of Present Illness Provider Complaint: She states that she has a sore area on her left buttock. It has been present for the past 2 to 3 days. She went to her neurologist today for other reasons, but her neurologist told her to come here to have the place checked. She denies any fever/chills or other complaints. - Related Data Home Medications Medication Instructions Recorded Confirmed albuterol sulfate 90 mcg/actuation 2 puff INHALATION Q4-6H PRN 07/19/17 01/06/21 aerosol inhaler lamotrigine 200 mg tablet 200 mg PO BID tab 07/19/17 01/06/21 montelukast 10 mg tablet 10 mg PO DAILY 07/19/17 01/06/21 Ascorbic Acid [Vitamin C 500mg 500 mg PO DAILY 07/05/18 01/06/21 tablet] Cholecalciferol (Vitamin D3) 1,000 unit PO DAILY 07/05/18 01/06/21 [Vitamin D3 1,000 Unit Cap] Fluticasone/Salmeterol [Advair 1 puff IH BID 07/05/18 01/06/21 500/50mcg diskus] Multivit with Minerals/Herbs 1 each PO DAILY 07/05/18 01/06/21 [Women's Biomultiple Tablet] Thiamine HCl [Vitamin B-1] 50 mg PO DAILY 07/05/18 01/06/21 linaclotide 145 mcg capsule 145 mcg PO DAILY cap 04/01/20 01/06/21 pantoprazole 40 mg tablet,delayed 40 mg PO BID tab 04/01/20 01/06/21 release Triamcinolone Acetonide 2 spray INTRANASAL DAILY 04/11/20 01/06/21 duloxetine 60 mg capsule,delayed 30 mg PO DAILY cap 04/22/20 01/06/21 release Cetirizine HCl 10 mg PO DAILY 08/06/20 01/06/21 Pravastatin Sodium [Pravachol] 40 mg PO DAILY 08/06/20 01/06/21 Ranolazine [Ranolazine ER] 1,000 mg PO BID 08/06/20 01/06/21 bisoproloL fumarate [Bisoprolol See Rx Instructions .ROUTE .COMPLEX 08/06/20 01/06/21 Fumarate] quetiapine 200 mg tablet 400 mg PO QHS tab 09/26/20 01/06/21 ibuprofen 400 mg tablet 400 mg PO Q
[2021-01-06 13:27] VITALS: BP 127/80; PULSE 66; RESP 17; TEMP 36.9; O2SAT 99
== END 2021-01-06 13:28 | disposition home or self-care (01) ==
LOC: ER 11:39 → UTC 11:39
PROVIDERS: Emergency Provider Nurse Practitioner Family; PCP Nurse Practitioner Family
DX: L03.317 Cellulitis of buttock (principal); S30.860A Insect bite (nonvenomous) of lower back and pelvis, initial encounter; K21.9 Gastro-esophageal reflux disease without esophagitis; E78.5 Hyperlipidemia, unspecified; I10 Essential (primary) hypertension; E03.9 Hypothyroidism, unspecified; I25.10 Atherosclerotic heart disease of native coronary artery without angina pectoris; Z95.0 Presence of cardiac pacemaker; F41.8 Other specified anxiety disorders; Z12.31 Encounter for screening mammogram for malignant neoplasm of breast
CPT/HCPCS: G0463 ×2; 77063; 77067; 87070; 87077; 87186; 87205; 99202

== ENCOUNTER → 2021-03-02 11:38 | Outpatient (CLI) | payer MEDICARE, MEDICAID, SELFPAY ==
[2021-03-02 12:09] LABS: Basophils # 0.1 K/mm3 (0-0.2); Basophils % 0.6 % (0.1-2.0); Eosinophils # 0.2 K/mm3 (0.0-0.4); Eosinophils % 3.3 % (0.1-12.0); Hematocrit 38.2 % (37.0-47.0); Hemoglobin 11.7 g/dL (12.2-16.2); Lymphocytes # 1.9 K/mm3 (0.7-4.5); Lymphocytes % 25.8 % (10-50); Mean Corpuscular HGB Conc 30.7 g/dL (31.8-35.4); Mean Corpuscular Hemoglobin 33.7 pg (27.0-31.2); Mean Platelet Volume 8.2 fl (7.4-10.4); Monocytes # 0.3 K/mm3 (0.1-1.0); Monocytes % 4.5 % (1.7-9.3); Neutrophils # 4.9 K/mm3 (1.8-7.8); Neutrophils % 65.9 % (37.0-80.0); Platelet Count 285 K/mm3 (142-424); Red Blood Count 3.48 M/mm3 (4.20-5.40); Red Cell Distribution Width 13.2 % (11.5-17.5); White Blood Count 7.5 K/mm3 (4.8-10.8)
[2021-03-02 13:12] LABS: Alanine Aminotransferase 19 U/L (12-78); Albumin Level 3.9 g/dl (3.5-5.0); Albumin/Globulin Ratio 1.4 (1.1-1.8); Alkaline Phosphatase 78 U/L (38-126); Anion Gap 11.3 mEq/L (5-15); Aspartate Amino Transferase 27 U/L (14-36); Bilirubin,Total 0.4 mg/dl (0.2-1.3); Blood Urea Nitrogen 11 mg/dl (7-17); Calcium 9.7 mg/dl (8.4-10.2); Carbon Dioxide 29 mmol/L (22.0-30.0); Chloride 106 mmol/L (98-107); Chol/HDL Ratio 3.7 (1-3.5); Cholesterol 180 mg/dl (140-200); Estimated Glomerular Filt Rate 75 ml/min (>60); GFR (African American) 90 ML/MIN (>60); Globulin 2.7 g/dL (1.3-3.2); Glucose 124 mg/dl (74-100); HDL Cholesterol 49 mg/dl (40-60); Potassium 4.3 mmoL/L (3.5-5.1); Sodium 142 mmol/L (136-145); Total Protein,Serum 6.6 g/dl (6.3-8.2); Triglycerides 191 mg/dl (30-150); VLDL Cholesterol 38 mg/dL (0-40)
[2021-03-02 13:23] LABS: Direct LDL Cholesterol 90.72 mg/dL (100-129)
[2021-03-02 13:45] LABS: Thyroid Stimulating Hormone 1.79 uIU/mL (0.465-4.68)
[2021-03-03 15:14] LABS: Sjogren's Anti-SS-A <0.2 AI (0.0-0.9); Sjogren's Anti-SS-B <0.2 AI (0.0-0.9)
== END ==
PROVIDERS: Internal Medicine; Visit Provider Family Medicine
DX: E03.9 Hypothyroidism, unspecified (principal); R68.2 Dry mouth, unspecified
CPT/HCPCS: 36415; 80053; 80061; 84436; 84443; 85025; 86235

== ENCOUNTER → 2021-03-09 13:30 | Outpatient (CLI) | payer MEDICARE, MEDICAID, SELFPAY | PROVIDERS: PCP Emergency Medicine; Visit Provider Nurse Practitioner | DX: Z20.822 Contact with and (suspected) exposure to COVID-19 (principal) | CPT/HCPCS: C9803; U0003; U0005 ==

== ENCOUNTER 2021-03-16 00:05 | Emergency (ER) | payer MEDICARE, MEDICAID, SELFPAY ==
[2021-03-16 00:07] VITALS: BP 118/63; PULSE 83; RESP 18; TEMP 36.9; O2SAT 99; BMI 37.5
--- NOTE | 2021-03-16 00:34 | XR_ITS ---
PROCEDURE INFORMATION: Exam: XR Left Shoulder Exam date and time: 03/16/2021 12:34 AM Age: 55 years old Clinical indication: Pain; Shoulder; Left; Additional info: Pain with tenderness pain in neck no known trauma TECHNIQUE: Imaging protocol: XR Left shoulder. Views: 2 or more views. COMPARISON: CR XR SHOULDER LT MIN 2V 05/07/2020 2:17 PM FINDINGS: Bones/joints: Mild degenerative spurring of the AC joint. Minimal glenohumeral joint line osteophytes inferiorly. No acute fracture. No dislocation. Soft tissues: Left chest wall pacemaker partially visualized. IMPRESSION: 1. No acute finding. 2. Minimal glenohumeral joint and mild AC joint osteoarthrosis.
--- NOTE | 2021-03-16 00:34 | CT_ITS ---
PROCEDURE INFORMATION: Exam: CT Cervical Spine With Contrast Exam date and time: 03/16/2021 12:34 AM Age: 55 years old Clinical indication: Neck pain; Prior surgery; Surgery date: 6+ months; Surgery type: Cervical fusion, pacemaker, tonsils, ear tubes; Additional info: Neck pain with prev surery left shoulder pain. No known recent trauma TECHNIQUE: Imaging protocol: Computed tomography images of the cervical spine with intravenous contrast. Radiation optimization: All CT scans at this facility use at least one of these dose optimization techniques: automated exposure control; mA and/or kV adjustment per patient size (includes targeted exams where dose is matched to clinical indication); or iterative reconstruction. Contrast material: ISOVUE; Contrast volume: 75 ml; Contrast route: IV; COMPARISON: CT CHEST WO CON 08/17/2019 3:41 PM FINDINGS: Bones/joints: No acute cervical spine fracture. ACDF hardware at C5-C6 and C6-C7. Discs/Spinal canal/Neural foramina: C3-C4: Mild grade 1 anterolisthesis. Disc bulging with superimposed left subarticular disc protrusion uncovertebral spurring. Mild to moderate spinal canal stenosis. In conjunction with left greater than right facet arthropathy, there is severe left and moderate right neural foraminal stenosis. C4-C5: Grade 1 anterolisthesis. Disc bulge. Mild to moderate spinal canal stenosis. Moderate right greater than left neural foraminal narrowing. C5-C6: ACDF. Disc space ankylosis. Disc space ankylosis. No significant spinal canal stenosis. Mild left greater than right neural foraminal narrowing. C6-C7: ACDF. Disc space ankylosis. Hypertrophic spurring posteriorly, producing [id number] spinal canal stenosis as well as severe right and moderate left neural foraminal stenosis. C7-T1: Grade 1 anterolisthesis. Mild spinal canal stenosis. Moderate to severe neural foraminal narrowing. Partially visualized upper thoracic levels demonstrate scattered moderate to severe neural foraminal narrowing. Mild spinal canal stenosis visualized T1-T2 and T2-T3. Lungs: Lung apices are normal. Soft tissues: No paravertebral edema or fluid collection identified. Borderline ectasia of the ascending thoracic aorta, measuring 3.4 cm in caliber. Partially visualized left chest wall cardiac device leads. IMPRESSION: 1. No acute finding. 2. ACDF at C5-C7. 3. Degenerative changes as described.
[2021-03-16 00:58] LABS: Alanine Aminotransferase 24 U/L (12-78); Albumin/Globulin Ratio 1.3 (1.1-1.8); Alkaline Phosphatase 90 U/L (38-126); Anion Gap 11.1 mEq/L (5-15); Aspartate Amino Transferase 30 U/L (14-36); Bilirubin,Total 0.4 mg/dl (0.2-1.3); Blood Urea Nitrogen 10 mg/dl (7-17); Calcium 9.2 mg/dl (8.4-10.2); Carbon Dioxide 30 mmol/L (22.0-30.0); Chloride 102 mmol/L (98-107); Creatinine Clearance Estimated 144 mL/min (50-200); Estimated Glomerular Filt Rate 87 ml/min (>60); GFR (African American) 106 ML/MIN (>60); Glucose 135 mg/dl (74-100); Potassium 4.1 mmoL/L (3.5-5.1); Sodium 139 mmol/L (136-145)
[2021-03-16 01:01] LABS: Basophils # 0.1 K/mm3 (0-0.2); Basophils % 0.7 % (0.1-2.0); Eosinophils # 0.2 K/mm3 (0.0-0.4); Eosinophils % 2.1 % (0.1-12.0); Hematocrit 39.4 % (37.0-47.0); Hemoglobin 12.3 g/dL (12.2-16.2); Lymphocytes # 2.4 K/mm3 (0.7-4.5); Lymphocytes % 28.8 % (10-50); Mean Corpuscular HGB Conc 31.3 g/dL (31.8-35.4); Mean Corpuscular Hemoglobin 33.2 pg (27.0-31.2); Mean Corpuscular Volume 106.2 fl (81-99); Monocytes # 0.5 K/mm3 (0.1-1.0); Monocytes % 5.7 % (1.7-9.3); Neutrophils # 5.2 K/mm3 (1.8-7.8); Neutrophils % 62.7 % (37.0-80.0); Platelet Count 236 K/mm3 (142-424); Red Blood Count 3.71 M/mm3 (4.20-5.40); Red Cell Distribution Width 12.9 % (11.5-17.5); White Blood Count 8.3 K/mm3 (4.8-10.8)
[2021-03-16 01:04] LABS: C-Reactive Protein 7.4 mg/L (0-4)
[2021-03-16 01:17] LABS: Procalcitonin 0.054 ng/mL (0.0-2.0)
[2021-03-16 01:23] LABS: Erythrocyte Sedimentation Rate 40 mm/hr (0-30)
--- NOTE | 2021-03-16 03:05 | HMH.EDNECK ---
ED Disposition Clinical Impression: Cervical radiculopathy Disposition: Home, Self-Care Condition on Discharge: Good Instructions: DI for Neck Pain Additional Instructions: see pcp for follow up Prescriptions: predniSONE [Prednisone 20mg Tab] 20 mg PO BID #10 tab Transmission Status: Pending to [id number] Referrals: Robert Webb MD [Primary Care Provider] - - Critical Care Critical Care Time: No Attestation: On 03/16/21, the high probability of a clinically significant, sudden or life threatening deterioration of the following system(s) required my full and direct attention, intervention and personal management. The time I documented below is in addition to time spent performing reported procedures but includes the following listed in this critical care notation. Medical Decision Making - Medical Records Medical records reviewed: Yes: I reviewed the patient's medical records. - [place] Inquiry Pt receiving controlled substance: No Vital Signs: 03/16/21 00:07 Temperature 98.5 F Temperature Source Oral Pulse Rate [Right] 83 Respiratory Rate 18 Blood Pressure [Right Arm] 118/63 Blood Pressure Mean [Right Arm] 81 Blood Pressure Source [Right Arm] Automatic Cuff 02 Sat by Pulse Oximetry 99 Oxygen Delivery Method Room Air - Lab Data Lab results reviewed: Yes: I reviewed the patient's lab results. Lab Results 03/16/21 00:40: WBC 8.3, RBC 3.71 L, Hgb 12.3, Hct 39.4, MCV 106.2 H, MCH 33.2 H, MCHC 31.3 L, RDW 12.9, Plt Count 236, MPV 8.0, Neut % (Auto) 62.7, Lymph % (Auto) 28.8, Hancock % (Auto) 5.7, Eos % (Auto) 2.1, Baso % (Auto) 0.7, Neut # (Auto) 5.2, Lymph # (Auto) 2.4, Hancock # (Auto) 0.5, Eos # (Auto) 0.2, Baso # (Auto) 0.1, ESR 40 H 03/16/21 00:40: Sodium 139, Potassium 4.1, Chloride 102, Carbon Dioxide 30, Anion Gap 11.1, BUN 10, Creatinine 0.70, Estimated Creat Clear 144, Estimated GFR 87, Est GFR ( Amer) 106, Glucose 135 H, Calcium 9.2, Total Bilirubin 0.4, AST 30, ALT 24, Alkaline Phosphatase 90, C-Reactive Protein 7.4 H, Total Protein 7.0, Albumin 4.0, Globulin 3.0, Albumin/Globulin Ratio 1.3, Procalcitonin 0.054 Result diagrams: 03/16/21 00:40 03/16/21 00:40 Orders (Tests/Meds): ED MEDICATIONS Generic Name Dose Route Start Last Admin Trade Name Freq PRN Reason Stop Dose Admin Sodium Chloride 1,000 mls @ 999 mls/hr 03/16/21 00:45 03/16/21 00:41 Sod Chlor 0.9% 1000ml Bag IV 03/16/21 01:45 999 mls/hr .Q1H1M NKECHI Administration Discontinued Medications Generic Name Dose Route Start Last Admin Trade Name Freq PRN Reason Stop Dose Admin Iopamidol 75 ml 03/16/21 01:51 03/16/21 01:53 Iopamidol-370 (76%);100ml Bottle IV 03/16/21 01:52 75 ml ONCE ONE Administration Ketorolac Tromethamine 30 mg 03/16/21 00:36 03/16/21 00:41 Ketorolac 30mg/Ml Vial IV 03/16/21 00:37 30 mg ONCE ONE Administration Methylprednisolone Sodium Succinate 125 mg 03/16/21 00:36 03/16/21 00:41 Methylprednisolone Sod Succ 125mg Vial IV 03/16/21 00:37 125 mg ONCE ONE Administration Sodium Chloride 10 ml 03/16/21 01:51 03/16/21 01:53 Sodium Chloride 0.9% 10ml Syr (Rad Only) IV 03/16/21 01:52 10 ml ONCE ONE Administration - Radiology Data #1 Image(s): Shoulder Image Reviewed: Yes I have reviewed radiologist's interpretation Preliminary Findings: No Fracture Seen - CT Data CT Scan: C-Spine Time Received: 03:[address] Reviewed: Yes: I have viewed the radiologist's interpretation Preliminary Findings: Abnormal (see report ) Medical Decision Narrative: has cervical radicular pain wih abn ct - Neck Pain/Injury HPI - General Chief Complaint: Neck Pain/Injury Stated Complaint: Can't move neck Time Seen by Provider: 03/16/21 01:00 Mode of Arrival: Ambulatory Source of Information: Patient, Medical Record Limitations: No Limitations Description of Symptoms (Recalled from ER Triage Doc. by RN): Pt c/o left sided neck pain t
[2021-03-16 03:22] VITALS: BP 107/53; PULSE 80; RESP 17; TEMP 36.9; O2SAT 95
== END 2021-03-16 03:27 | disposition home or self-care (01) ==
PROVIDERS: Emergency Provider Emergency Medicine; PCP Family Medicine
DX: M54.12 Radiculopathy, cervical region (principal); F41.8 Other specified anxiety disorders; I25.10 Atherosclerotic heart disease of native coronary artery without angina pectoris; I10 Essential (primary) hypertension; E78.5 Hyperlipidemia, unspecified; K21.9 Gastro-esophageal reflux disease without esophagitis
CPT/HCPCS: 72126; 73030; 80053; 84145; 85025; 85651; 86140; 96365; 96375; 99283; Q9967

== ENCOUNTER → 2021-03-19 13:05 | Outpatient (CLI) | payer MEDICARE, MEDICAID, SELFPAY ==
--- NOTE | 2021-03-19 13:12 | XR_ITS ---
PROCEDURE: XR FOOT WT BEARING RT 3V CLINICAL INDICATION: Pain COMPARISON: CR XR FOOT WT BEARING RT 3V from 01/16/2020 CR XR FOOT RT MIN 3V from 02/20/2020 CR XR FOOT WT BEARING RT 3V from 05/01/2020 CR XR FOOT WT BEARING LT 3V from 05/01/2020 FINDINGS: There is an old fracture involving the 3rd proximal phalanx with good alignment. No acute fracture or dislocation is evident. Mild osteoarthritic changes are present at the 1st MTP joint. There is a lucency present at the base of the 5th metatarsal which was not present on 05/01/2020 consistent with a nondisplaced fracture. This however does not appear acute. Has the patient had an interval injury to this area? There are mild osteoarthritic changes at the tarsal metatarsal junction with mild pes planus. There is some spurring at the distal talus anteriorly with a small ossicle at this region. Mild soft tissue swelling with faint soft tissue calcification is present medial to the distal shaft of the 1st metatarsal IMPRESSION: 1. No acute fracture. 2. Osteoarthritic changes with pes planus. 3. Transverse lucency at the base of the 5th metatarsal. Given the appearance of a chronic fracture. Summation of subcortical cystic changes is also consideration. 4. Faint soft tissue calcification medial to the 1st metatarsal distally nonspecific but could be seen with areas of gout involvement. No bony erosive process evident at this area. Dictated by: Octavio Dickson MD 03/19/2021 13:45 Octavio Dickson MD in [place] 03/19/2021 13:45
[2021-03-19 14:31] LABS: Uric Acid 7.4 mg/dl (2.5-6.2)
[2021-03-19 15:30] LABS: Chloride 104 mmol/L (98-107); Sodium 141 mmol/L (136-145)
[2021-03-19 15:33] LABS: Blood Urea Nitrogen 11 mg/dl (7-17); Estimated Glomerular Filt Rate 87 ml/min (>60); GFR (African American) 106 ML/MIN (>60)
[2021-03-19 15:34] LABS: Carbon Dioxide 26 mmol/L (22.0-30.0); Glucose 169 mg/dl (74-100)
== END ==
PROVIDERS: Nurse Practitioner Family; PCP Nurse Practitioner Family; Visit Provider Nurse Practitioner
DX: R06.00 Dyspnea, unspecified; R42 Dizziness and giddiness; R55 Syncope and collapse; I10 Essential (primary) hypertension; I26.99 Other pulmonary embolism without acute cor pulmonale; I27.20 Pulmonary hypertension, unspecified; I95.9 Hypotension, unspecified; M79.671 Pain in right foot; Z95.0 Presence of cardiac pacemaker
CPT/HCPCS: 36415; 73630; 80048; 84550

== ENCOUNTER → 2021-04-15 15:30 | Outpatient (CLI) | payer MEDICARE, MEDICAID, SELFPAY ==
--- NOTE | 2021-04-15 15:40 | XR_ITS ---
PROCEDURE: XR KNEE RT 2V CLINICAL INDICATION: right knee pain COMPARISON: CR XR KNEE RT 3V from 09/08/2019 CR XR KNEE RT 2V from 11/28/2019 CR XR KNEE RT 3V from 01/16/2020 CR XR KNEE RT 3V from 02/20/2020 FINDINGS: Good alignment status post total knee replacement. No evidence of orthopedic complication. No acute fracture or dislocation. No lytic or blastic change. The IMPRESSION: No acute findings. Status post total knee replacement with good alignment and no acute finding Dictated by: Octavio Dickson MD 04/15/2021 18:21 Octavio Dickson MD in [place] 04/15/2021 18:21
== END ==
PROVIDERS: PCP Nurse Practitioner Family; Visit Provider Orthopaedic Surgery
DX: Z96.651 Presence of right artificial knee joint (principal); M25.561 Pain in right knee
CPT/HCPCS: 73560

== ENCOUNTER 2021-04-20 12:15 | Emergency (ER) | payer MEDICARE, MEDICAID, SELFPAY ==
[2021-04-20 12:52] VITALS: BP 135/78; PULSE 89; RESP 19; TEMP 36.6; O2SAT 98; BMI 38.7
--- NOTE | 2021-04-20 12:53 | XR_ITS ---
PROCEDURE: XR RIBS RT MIN 3V W CXR1V CLINICAL INDICATION: fell in bathtub COMPARISON: CR XR CHEST 2V from 04/11/[address] ANGIO CHEST from 04/11/2020 CR XR CHEST 2V from 07/08/2020 CR XR CHEST PORTABLE from 12/07/2020 FINDINGS: Frontal view of the chest shows no acute finding. There is a bipolar pacemaker present from left subclavian approach. The pacemaker generator overlies the left heart border lower than usual but not significantly changed. There is a bone plate along the lower cervical spine. Multiple views of the right ribs are obtained. There is minimal cortical offset involving the anterior aspect of the right 7th 8th and 9th ribs possibly related to nondisplaced fractures age indeterminate. Please correlate as the patient's area of pain and tenderness. IMPRESSION: Possible right 7th 8th and 9th rib fractures age indeterminate Dictated by: Octavio Dickson MD 04/20/2021 17:07 Octavio Dickson MD in [place] 04/20/2021 17:07
--- NOTE | 2021-04-20 12:53 | XR_ITS ---
PROCEDURE: XR FOOT RT MIN 3V CLINICAL INDICATION: fall COMPARISON: CR XR FOOT RT MIN 3V from 02/20/2020 CR XR FOOT WT BEARING RT 3V from 05/01/2020 CR XR FOOT WT BEARING LT 3V from 05/01/2020 CR XR FOOT WT BEARING RT 3V from 03/19/2021 FINDINGS: No fracture or dislocation. No lytic or blastic change. There is normal mineralization. Osteoarthritic changes of the midfoot and at the DIP of the 2nd toe. Faint calcific densities are present medial to the head of the 1st metatarsal and could represent gouty tophi. No bony erosive change evident. Other findings:None. IMPRESSION: Degenerative change. No acute fracture. Faint calcifications medial to the head of the 1st metatarsal possibly related to gouty tophi. Dictated by: Octavio Dickson MD 04/20/2021 17:05 Octavio Dickson MD in [place] 04/20/2021 17:05
--- NOTE | 2021-04-20 13:09 | HMH.EDUTC ---
[facility] [place] Impression: Rib injury Disposition: Home, Self-Care Condition on Discharge: Good Instructions: DI for Rib Fracture, DI for Rib Contusion Additional Instructions: *Ibuprofen grant 6 hours with meal as needed for pain/inflammation if you can take it *Not additional anti-inflammatory like motrin, aleve, advil with the above amount of ibuprofen. You can still take Tylenol every 4 hours as needed if you need something else for pain *Ice 20 minutes every 2 hours for the first 48 hours after the initial injury followed by moist heat every 20 minutes 3-4 times a day to affected area Over the counter Lidocaine patches may help with pain and discomfort of pain in your ribs use as directed on package *Keep this area active, no movement leads to more stiffness, However take it easy and avoid heavy lifting pushing or pulling *Follow up with you family doctor if no improvement for further treatment Return if needed Gume wrap to foot may help with pain and swelling Referrals: Manuel Cunha APRN [Primary Care Provider] - As needed Time of Disposition: 14:36 Medical Decision Making - [place] Inquiry Pt receiving controlled substance: No [place] was queried for this patient: No Vital Signs: 04/20/21 12:52 04/20/21 14:43 Temperature 97.8 F 97.8 F Temperature Source Temporal Artery Scan Oral Pulse Rate 89 Pulse Rate [Right Radial] 89 Respiratory Rate 19 19 Blood Pressure 135/78 Blood Pressure [Right Arm] 135/78 Blood Pressure Mean [Right Arm] 97 Blood Pressure Source Automatic Cuff Blood Pressure Source [Right Arm] Automatic Cuff Blood Pressure Position Sitting Blood Pressure Position [Right Arm] Sitting 02 Sat by Pulse Oximetry 98 Oxygen Delivery Method Room Air Room Air - Radiology Data #1 Image(s): Chest (with right ribs) Image Reviewed: Yes I reviewed the patient's radiology image w/the ED provider No pneumothorax, possible fracture 6th, 7th and 8th right rib will dc home and wait for official Radiology reading and call back if any abdnormalities #2 Image(s): Foot/Toes Image Reviewed: Yes I reviewed the patient's radiology image Preliminary Findings: No Fracture Seen Medical Decision Narrative: Patient awaiting xray 1715 Patient notified of xray reading and further recommendations an patient agreed [facility] [place] - General Stated complaint: AO fall 1120, right side/back pain Time Seen by Provider: 04/20/21 13:09 Mode of Arrival: Ambulatory Source of Information: Patient Description of Symptoms (Recalled from Triage Doc. by RN): FELL IN TUB 2 DAYS AGO, DEVELOPED PAIN R RIBS AND R FOOT THAT HAS GOTTEN WORSE. HEENT Symptoms (Recalled from RN notes): No Resp Symptoms (Recalled from RN notes): No Skin Symptoms (Recalled from RN notes): No MS Symptoms (Recalled from RN notes): Yes Functional Status (Recalled from RN notes): WNL - History of Present Illness Provider Complaint: Patient states that she fell a couple days ago getting in the tub and landed on her right rib area States that ever since she has been having pain in her right lower ribs and her right foot that has not improved and she was worried that she may have broken something so she came in to get checked - Related Data Home Medications Medication Instructions Recorded Confirmed albuterol sulfate 90 mcg/actuation 2 puff INHALATION Q4-6H PRN 07/19/17 04/20/21 aerosol inhaler lamotrigine 200 mg tablet 200 mg PO BID tab 07/19/17 04/20/21 Cholecalciferol (Vitamin D3) 1,000 unit PO DAILY 07/05/18 04/20/21 [Vitamin D3 1,000 Unit Cap] Fluticasone/Salmeterol [Advair 1 puff IH BID 07/05/18 04/20/21 500/50mcg diskus] Multivit with Minerals/Herbs 1 each PO DAILY 07/05/18 04/20/21 [Women's Biomultiple Tablet] Triamcinolone Acetonide 2 spray INTRANASAL DAILY 04/11/20 04/20/21 quetiapine 200 mg tablet 400 mg PO QHS tab 09/26/20 04/20/21 ibuprofen 400 mg tablet 400 mg PO Q8H PRN 10/16/20 04/20/21 bupropion HCl
[2021-04-20 14:43] VITALS: BP 135/78; PULSE 89; RESP 19; TEMP 36.6; O2SAT 98
== END 2021-04-20 14:46 | disposition home or self-care (01) ==
PROVIDERS: Emergency Provider Nurse Practitioner; PCP Nurse Practitioner Family
DX: S29.9XXA Unspecified injury of thorax, initial encounter (principal); W18.2XXA Fall in (into) shower or empty bathtub, initial encounter; Y92.012 Bathroom of single-family (private) house as the place of occurrence of the external cause; F41.8 Other specified anxiety disorders; K21.9 Gastro-esophageal reflux disease without esophagitis; E78.5 Hyperlipidemia, unspecified; I10 Essential (primary) hypertension; I25.10 Atherosclerotic heart disease of native coronary artery without angina pectoris; Z79.899 Other long term (current) drug therapy
CPT/HCPCS: G0463; 71101; 73630; 99202

== ENCOUNTER → 2021-04-28 20:42 | Outpatient (CLI) | payer MEDICARE, MEDICAID, SELFPAY | PROVIDERS: PCP Nurse Practitioner Family; Visit Provider Nurse Practitioner Family | DX: G47.30 Sleep apnea, unspecified (principal); R06.02 Shortness of breath; R00.2 Palpitations | CPT/HCPCS: 95810 ==

== ENCOUNTER 2021-05-03 19:47 | Emergency (ER) | payer MEDICARE, MEDICAID, SELFPAY ==
--- NOTE | 2021-05-03 19:58 | XR_ITS ---
PROCEDURE INFORMATION: Exam: XR Right Wrist Exam date and time: 05/03/2021 7:58 PM Age: 55 years old Clinical indication: Injury or trauma; Fall; Sprain or strain; Wrist; Right TECHNIQUE: Imaging protocol: XR Right wrist. Views: 3 or more views. COMPARISON: CR XR WRIST RT W SCAPHOID 12/19/2019 4:03 PM FINDINGS: Bones/joints: Chronic avulsion fracture involving the tip of the ulnar styloid process. No acute fracture or dislocation. Soft tissues: Normal. IMPRESSION: No acute findings.
--- NOTE | 2021-05-03 19:58 | XR_ITS ---
PROCEDURE INFORMATION: Exam: XR Right Hand Exam date and time: 05/03/2021 7:58 PM Age: 55 years old Clinical indication: Injury or trauma; Fall; Sprain or strain; Hand; Right TECHNIQUE: Imaging protocol: XR Right hand. Views: 3 or more views. COMPARISON: CR XR WRIST RT W SCAPHOID 12/19/2019 4:03 PM FINDINGS: Bones/joints: Acute fracture or dislocation. Mild degenerative changes involving the 2nd and 3rd middle and distal interphalangeal joints. Soft tissues: Normal. IMPRESSION: No acute findings.
[2021-05-03 20:48] VITALS: BP 146/80; PULSE 97; RESP 18; TEMP 36.9; O2SAT 98; BMI 37.8
--- NOTE | 2021-05-03 21:13 | HMH.EDUTC ---
[facility] [place] Disposition Clinical Impression: Right hip pain, Superficial abrasion Fall Qualifiers: Encounter type: initial encounter Qualified Code(s): W19.XXXA - Unspecified fall, initial encounter Sprain of right hand Qualifiers: Encounter type: initial encounter Qualified Code(s): S63.91XA - Sprain of unspecified part of right wrist and hand, initial encounter Right wrist sprain Qualifiers: Encounter type: initial encounter Qualified Code(s): S63.501A - Unspecified sprain of right wrist, initial encounter Disposition: Home, Self-Care Condition on Discharge: Good Instructions: DI for Wound Infection, DI for Wrist Sprain, DI for Hand Injury, DI for Hip Pain Additional Instructions: Rest the extremity, apply ice for 15 minutes as tolerated three or four times per day, Elevate the extremity as tolerated while you are resting. Take ibuprofen for pain. Follow up with Dr. Lau (orthopedics). Sometimes there can be fractures that don't show up well on the first set of x-rays. So, you should follow up if you continue to have symptoms. I put in a referral but you need to call his office and schedule an appointment. Apply the topical medication and take the oral antibiotics as directed. Follow up with your regular doctor. GO TO THE ER FOR ANY WORSENING SYMPTOMS Prescriptions: Mupirocin [Bactroban 2% Ointment 22gm tube] 1 applicatio TP TID 7 Days #1 gm Transmission Status: Pending to [id number] Doxycycline Monohydrate [Doxycycline [place] 100mg Tab] 100 mg PO Q12 10 Days #20 tab [facility]: [id number] Referrals: Manuel Cunha APRN [Primary Care Provider] - Forms: Work/School Release Medical Decision Making - Medical Records Medical records reviewed: No: I reviewed the patient's medical records. - [place] Inquiry Pt receiving controlled substance: No Vital Signs: 05/03/21 20:48 Temperature 98.5 F Temperature Source Oral Pulse Rate [Left] 97 H Respiratory Rate 18 Blood Pressure [Right Arm] 146/80 H Blood Pressure Mean [Right Arm] 102 02 Sat by Pulse Oximetry 98 Orders (Tests/Meds): ORDERS Category Date Time Status Wound Culture and Gram Stain Stat Micro 05/02/21 21:33 Ordered [facility] [place] HPI - General Stated complaint: AO fall 04/28 laceration R hip possible infection Time Seen by Provider: 05/03/21 21:13 Mode of Arrival: Ambulatory Source of Information: Patient Limitations: No Limitations Description of Symptoms (Recalled from Triage Doc. by RN): pt c/o of R wrist pain. pt states she fell out of bed today landing on his. pt also believes she may have and infected scrape on her R hip from a fall out of her bed on 04/28. HEENT Symptoms (Recalled from RN notes): No Resp Symptoms (Recalled from RN notes): No Skin Symptoms (Recalled from RN notes): No MS Symptoms (Recalled from RN notes): Yes (R wrist pain) Functional Status (Recalled from RN notes): wnl - History of Present Illness Provider Complaint: She has been falling frequently at home. She is being evaluated by her doctor to try to find out why this is happening. On 04/28 she fell and came down on her right hip. She denies significant hip pain, but she has a wound on her hip from the fall that she thinks may be getting infected. Then, earlier today she fell and hit her right hand and wrist on a piece of furniture as she was falling. She has had right wrist and hand pain since then. She is a diabetic. - Related Data Home Medications Medication Instructions Recorded Confirmed albuterol sulfate 90 mcg/actuation 2 puff INHALATION Q4-6H PRN 07/19/17 04/22/21 aerosol inhaler lamotrigine 200 mg tablet 200 mg PO BID tab 07/19/17 04/22/21 Cholecalciferol (Vitamin D3) 1,000 unit PO DAILY 07/05/18 04/22/21 [Vitamin D3 1,000 Unit Cap] Fluticasone/Salmeterol [Advair 1 puff IH BID 07/05/18 04/22/21 500/50mcg diskus] Multivit with Minerals/Herbs 1 each PO DAILY 07/05/18 04/22/21 [Wo
[2021-05-03 21:52] VITALS: BP 146/80; PULSE 97; RESP 18; TEMP 36.9
== END 2021-05-03 22:10 | disposition home or self-care (01) ==
PROVIDERS: Emergency Provider Nurse Practitioner Family; PCP Nurse Practitioner Family
DX: S63.501A Unspecified sprain of right wrist, initial encounter (principal); S70.01XA Contusion of right hip, initial encounter; W06.XXXA Fall from bed, initial encounter; Y92.013 Bedroom of single-family (private) house as the place of occurrence of the external cause; I25.10 Atherosclerotic heart disease of native coronary artery without angina pectoris; F41.8 Other specified anxiety disorders; K21.9 Gastro-esophageal reflux disease without esophagitis; E78.5 Hyperlipidemia, unspecified; I10 Essential (primary) hypertension; Z79.899 Other long term (current) drug therapy
CPT/HCPCS: G0463; 73110; 73130; 87070; 87077; 87186; 87205; 99202

== ENCOUNTER → 2021-05-06 13:08 | Outpatient (CLI) | payer MEDICARE, MEDICAID, SELFPAY ==
[2021-05-06 16:09] LABS: Anion Gap 15.6 mEq/L (5-15); Blood Urea Nitrogen 13 mg/dl (7-17); Calcium 9.3 mg/dl (8.4-10.2); Carbon Dioxide 26 mmol/L (22.0-30.0); Chloride 99 mmol/L (98-107); Estimated Glomerular Filt Rate 58 ml/min (>60); GFR (African American) 70 ML/MIN (>60); Glucose 151 mg/dl (74-100); Potassium 3.6 mmoL/L (3.5-5.1); Sodium 137 mmol/L (136-145)
== END ==
PROVIDERS: Visit Provider Nurse Practitioner Family
DX: E78.2 Mixed hyperlipidemia (principal); I10 Essential (primary) hypertension; I25.118 Atherosclerotic heart disease of native coronary artery with other forms of angina pectoris; I27.20 Pulmonary hypertension, unspecified; I51.89 Other ill-defined heart diseases; I95.9 Hypotension, unspecified; R06.02 Shortness of breath; R07.89 Other chest pain
CPT/HCPCS: 36415; 80048

== ENCOUNTER 2021-05-13 14:16 | Emergency (ER) | payer MEDICARE, MEDICAID, SELFPAY ==
[2021-05-13 14:19] VITALS: BP 119/77; PULSE 90; RESP 16; TEMP 36.9; O2SAT 100; BMI 37.5
--- NOTE | 2021-05-13 15:22 | CT_ITS ---
PROCEDURE: CT HEAD/BRAIN WO CON CLINICAL INDICATION: fall COMPARISON: CT HDWO CT HEAD W/O CONTRAST from 04/18/2013 TECHNIQUE: Axial images obtained. All CT scans at the facility use one or more dose reduction, viz: automated exposure control, ma/kV adjustment per patient size (including targeted exams where dose is matched to indication, i.e. head), or iterative reconstruction technique. FINDINGS: No midline shift, mass effect, intracranial hemorrhage, hydrocephalus, or extra-axial fluid collection is evident. The calvarium has an unremarkable appearance. No mastoid effusion. No sinus air-fluid level. IMPRESSION: No acute intracranial finding Dictated by: Octavio Dickson MD 05/13/2021 15:53 Octavio Dickson MD in [place] 05/13/2021 15:53
--- NOTE | 2021-05-13 15:29 | XR_ITS ---
PROCEDURE: XR WRIST RT 2V CLINICAL INDICATION: wrist pain COMPARISON: CR XR WRIST RT MIN 3V from 11/28/2019 CR XR WRIST RT W SCAPHOID from 12/19/2019 CR XR WRIST RT MIN 3V from 05/03/2021 FINDINGS: No fracture or dislocation. No lytic or blastic change. There is normal mineralization. There are mild osteoarthritic changes of the radial scaphoid joint. There is also mild prominence of the scapholunate space. The lunate is slightly tilted anteriorly. No fracture or dislocation. No significant change. Other findings:None. IMPRESSION: No acute finding. Chronic changes as described above. Dictated by: Octavio Dickson MD 05/13/2021 15:55 Octavio Dickson MD in [place] 05/13/2021 15:55
--- NOTE | 2021-05-13 15:34 | PC.NURSE ---
Patient going to CAT scan
[2021-05-13 16:00] VITALS: BP 123/70; PULSE 88; RESP 17; O2SAT 98
[2021-05-13 16:30] VITALS: BP 102/65; PULSE 89; RESP 16; O2SAT 95
--- NOTE | 2021-05-13 16:32 | HMH.EDFALL ---
ED Disposition Clinical Impression: Fall Disposition: Home, Self-Care Condition on Discharge: Good Instructions: How to Prevent Falls Additional Instructions: Patient will follow up with primary care physician in 2 to 3 days for further management. Please also keep your appointment with neurosurgery. Please discuss with your primary team regarding the bed railing to assist with getting out of bed at night. Also please always walk with a walker to prevent further falls. Please return to the ED for any concerning symptoms such as chest pain, difficulty walking, loosing conciousness or any other concerning symptoms. Referrals: Brodie Thompson MD [Primary Care Provider] - Time of Disposition: 17:35 - Critical Care Critical Care Time: No Attestation: On 05/13/21, the high probability of a clinically significant, sudden or life threatening deterioration of the following system(s) required my full and direct attention, intervention and personal management. The time I documented below is in addition to time spent performing reported procedures but includes the following listed in this critical care notation. Medical Decision Making - [place] Inquiry Pt receiving controlled substance: No Vital Signs: 05/13/21 14:19 05/13/21 16:00 05/13/21 16:30 Temperature 98.5 F Temperature Source Oral Pulse Rate 88 89 Pulse Rate [Right] 90 Respiratory Rate 16 17 16 Blood Pressure 123/70 102/65 L Blood Pressure [Right Arm] 119/77 Blood Pressure Mean 88 79 Blood Pressure Mean [Right Arm] 91 Blood Pressure Source [Right Arm] Automatic Cuff Blood Pressure Position [Right Arm] Sitting 02 Sat by Pulse Oximetry 100 98 95 Oxygen Delivery Method Room Air 05/13/21 17:18 Temperature 97.6 F Temperature Source Oral Pulse Rate 85 Pulse Rate [Right] Respiratory Rate 16 Blood Pressure 120/74 Blood Pressure [Right Arm] Blood Pressure Mean Blood Pressure Mean [Right Arm] Blood Pressure Source [Right Arm] Blood Pressure Position [Right Arm] 02 Sat by Pulse Oximetry Oxygen Delivery Method Room Air - Lab Data Lab results reviewed: Yes: I reviewed the patient's lab results. Medical Decision Narrative: Mrs. Simon is a 55-year-old female presenting after a fall from standing on Tuesday with right wrist pain. Patient on blood thinners. Patient is neurovascularly intact and hemodynamically stable on arrival. Ambulatory. Patient reports she is supposed to be using a walker for ambulation but has not been using. Patient has been prescribed a bed railing by neurosurgery due to difficulty with mobility. Due to concern for intracranial hemorrhage given patient is on a blood thinner CT head is obtained results are nonactionable. X-ray of the right wrist is obtained no acute osseous findings. Patient is counseled on the importance of utilizing her walker as well as bedside railing modalities. Patient provided a handout on preventing further falls and is discharged in stable condition. Patient instructed to follow-up with her primary care team in 2 to 3 days for further management and to return for any concerning symptoms. Fall HPI - General Chief Complaint: Fall Stated Complaint: syncope Time Seen by Provider: 05/13/21 14:30 Mode of Arrival: Ambulatory Source of Information: Patient Limitations: No Limitations Description of Symptoms (Recalled from ER Triage Doc. by RN): PT advises she fell on tuesday and hit the temporal area on her right side, advises since then she has not felt good. She is on blood thinners. Advises she has been falling recently and she has an appt with neuro tomorrow - History of Present Illness MD complaint: fall Onset (ago): day(s) Fall from: standing Fall witnessed: no Place fall occurred: home Loss of consciousness: none Prolonged down time: no Symptoms prior to fall: none Context: tripped/slipped Location of injury: head, other ((R) wrist) Associated symptoms (after fall): denies -
[2021-05-13 17:18] VITALS: BP 120/74; PULSE 85; RESP 16; TEMP 36.4; O2SAT 98
--- NOTE | 2021-05-13 17:22 | PC.NURSE ---
Attempting to find a ride for patient to be transported to dr melendrez's office to pick her car up
== END 2021-05-13 17:30 | disposition home or self-care (01) ==
PROVIDERS: Emergency Provider Student in an Organized Health Care Education/Training Program; PCP Emergency Medicine
DX: M25.531 Pain in right wrist (principal); W01.0XXA Fall on same level from slipping, tripping and stumbling without subsequent striking against object, initial encounter; Y92.019 Unspecified place in single-family (private) house as the place of occurrence of the external cause; Z86.711 Personal history of pulmonary embolism; Z79.01 Long term (current) use of anticoagulants; K21.9 Gastro-esophageal reflux disease without esophagitis; F41.8 Other specified anxiety disorders; I10 Essential (primary) hypertension; E78.5 Hyperlipidemia, unspecified; E03.9 Hypothyroidism, unspecified; Z79.899 Other long term (current) drug therapy
CPT/HCPCS: 70450; 73100; 99282

== ENCOUNTER 2021-05-25 10:55 | Emergency (ER) | payer MEDICARE, MEDICAID, SELFPAY ==
[2021-05-25 12:30] VITALS: BP 129/81; PULSE 94; RESP 19; TEMP 36.9; O2SAT 98; BMI 37.2
--- NOTE | 2021-05-25 12:40 | XR_ITS ---
PROCEDURE: XR HAND RT MIN 3V CLINICAL INDICATION: FALL COMPARISON: DX XR HAND LT MIN 3V from 03/11/2020 CR XR HAND RT MIN 3V from 05/03/2021 FINDINGS: No fracture or dislocation. No lytic or blastic change. There is normal mineralization. Degenerative changes once again noted at the PIP of digits 2 through 5 and the DIP of digits 2, 3 and 4 and the interphalangeal joint of the thumb. There is volar tilt of the lunate which appears somewhat greater compared to the previous exam. Prominence of the scapholunate space IMPRESSION: No acute finding of the hand. Volar tilt of the lunate of questionable clinical significance. There is mild prominence of the scapholunate space which may be seen with ligamentous injury. Dictated by: Octavio Dickson MD 05/25/2021 13:27 Octavio Dickson MD in [place] 05/25/2021 13:27
--- NOTE | 2021-05-25 12:40 | XR_ITS ---
PROCEDURE: XR CERVICAL SPINE 3V CLINICAL INDICATION: FALL COMPARISON: CT CT CERVICAL SPINE W CON from 03/16/2021 FINDINGS: There has been prior anterior cervical disc fusion at C5, C6, and C7 with an anterior bone plate in place. There is 4 mm anterolisthesis C4 on C5. There is 6 mm anterolisthesis of C7 on T1. Previous CT of 03/16/2021 showed 3 mm anterolisthesis of C4 on C5 and 5 mm anterolisthesis of C7 on T1. The difference could be related to the difference imaging technique. No prevertebral soft tissue swelling is evident. Prominent anterior spur is present anteriorly at C4. No obvious fracture. There is degenerative disc disease at C7-T1 and C4-C5. IMPRESSION: Postsurgical changes with fusion at C5, C6, and C7 with anterolisthesis of C4 on C5 4 mm and C5 on C6 of 6 mm. No acute fracture. Dictated by: Octavio Dickson MD 05/25/2021 13:23 Octavio Dickson MD in [place] 05/25/2021 13:23
--- NOTE | 2021-05-25 13:07 | HMH.EDUTC ---
[facility] [place] Clinical Impression: Fall Qualifiers: Encounter type: initial encounter Qualified Code(s): W19.XXXA - Unspecified fall, initial encounter Disposition: Home, Self-Care Condition on Discharge: Good Instructions: Contusion, How To Perform RICE (Rest, Ice, Compress, Elevate), DI for Neck Pain, DI for COVID-19 (Suspected or Confirmed ) Additional Instructions: *RICE, Rest the extremity, Ice 15-20 minutes 3-4 times daily, Compress- wear the gume wrap as discussed as much as possible to help reduce swelling and pain, Elevate the extremity when at rest *Gume wrap is for support and help control swelling, use it except in the shower. Be sure that is not to tight but not to loose either *Elevate when resting *Ibuprofen as directed on package every 6-8 hours as needed for pain an inflammation as directed on package if you are able to take it If need something more can take Tylenol in between doses of Ibuprofen to help Immediately follow up with your family doctor for new or worsening of symptoms, or no noticeable improvement over the next 3-5 days Follow up with Family Doctor and Who ever done your surgery on your neck for further treatment and evaluation You were tested for today for COVID19 your test result should be back in the next 24-48 hours, you may check your results of your COVID test on the [facility] My Health Portal if you have trouble logging it support consultant back for your results You was given a handout with instructions for Self Quarantine and Self isolation for while you wait on test results and what to do if they are positive If you are positive the Health Dept will be contacting you also Make sure to take your Vitamins Vit. C Vit D and Zinc if you can take them Referrals: Manuel Cunha APRN [Primary Care Provider] - As needed Forms: Work/School Release Medical Decision Making - [place] Inquiry Pt receiving controlled substance: No [place] was queried for this patient: No Vital Signs: 05/25/21 12:30 Temperature 98.5 F Temperature Source Oral Pulse Rate [Right Brachial] 94 H Respiratory Rate 19 Blood Pressure [Right Arm] 129/81 Blood Pressure Mean [Right Arm] 97 Blood Pressure Source [Right Arm] Automatic Cuff Blood Pressure Position [Right Arm] Sitting 02 Sat by Pulse Oximetry 98 Oxygen Delivery Method Room Air Orders (Tests/Meds): ORDERS Category Date Time Status XR cervical spine 3V Stat Exams 05/25/21 12:40 Taken XR hand RT min 3V Stat Exams 05/25/21 12:40 Taken Covid-19 Nasal PCR ([facility]) Routine Lab 05/25/21 12:46 Received - Radiology Data #1 Image(s): C-Spine Image Reviewed: Yes I have reviewed radiologist's interpretation IMPRESSION: Postsurgical changes with fusion at C5, C6, and C7 with anterolisthesis of C4 on C5 4 mm and C5 on C6 of 6 mm. No acute fracture. #2 Image(s): Hand Image Reviewed: Yes I have reviewed radiologist's interpretation Medical Decision Narrative: Patient nodding head up and down as she was answering questions without pain or difficulty Denies numbeness or loss of sensation in fingers/feet [facility] [place] - General Stated complaint: AO fall 1213, right hand pain Time Seen by Provider: 05/25/21 13:09 Mode of Arrival: Ambulatory Source of Information: Patient Limitations: No Limitations Description of Symptoms (Recalled from Triage Doc. by RN): PATIENT C/O RIGHT HAND PAIN, LEFT NECK, AND RIGHT EAR PAIN. STATES SHE FELL 2 WEEKS AGO. ALSO C/O FATIGUE AND WANTING COVID TEST HEENT Symptoms (Recalled from RN notes): Yes Resp Symptoms (Recalled from RN notes): No Skin Symptoms (Recalled from RN notes): No MS Symptoms (Recalled from RN notes): Yes Functional Status (Recalled from RN notes): WNL - History of Present Illness Provider Complaint: Patient states that she fell out of bed 2 weeks ago States that she put her hands down to catch her fall States that ever since she has been having pain in her right hand and concerned with her neck due to having previous thacker
[2021-05-25 13:42] VITALS: BP 129/81; PULSE 94; RESP 19; TEMP 36.9; O2SAT 98
== END 2021-05-25 13:47 | disposition home or self-care (01) ==
PROVIDERS: Emergency Provider Nurse Practitioner; PCP Nurse Practitioner Family
DX: M79.641 Pain in right hand (principal); M54.2 Cervicalgia; W01.0XXA Fall on same level from slipping, tripping and stumbling without subsequent striking against object, initial encounter; Z20.822 Contact with and (suspected) exposure to COVID-19; E03.9 Hypothyroidism, unspecified; F41.8 Other specified anxiety disorders; E11.9 Type 2 diabetes mellitus without complications; K21.9 Gastro-esophageal reflux disease without esophagitis; E78.5 Hyperlipidemia, unspecified; I10 Essential (primary) hypertension; Z88.2 Allergy status to sulfonamides
CPT/HCPCS: G0463; 72040; 73130; 99202; C9803; U0003; U0005

== ENCOUNTER → 2021-05-28 10:08 | Outpatient (CLI) | payer MEDICARE, MEDICAID, SELFPAY ==
--- NOTE | 2021-05-28 10:09 | CA_ITS ---
APPROVED REPORT International Marketing Intern: CT Laterality: Bilateral Indications: falling/dizziness Risk Factors Hypertension: Hyperlipidemia Diabetes Doppler Spectral Velocity Analysis ECA (R) 107.00/ cm/s ECA (L) 84.00/ cm/s dICA (R) 72.60/37.40 cm/s dICA (L) 102.10/49.10 cm/s Flavia (R) 63.60/30.70 cm/s Flavia (L) 111.70/50.10 cm/s pICA (R) 89.00/26.20 cm/s pICA (L) 55.60/21.90 cm/s dCCA (R) 71.80/25.40 cm/s dCCA (L) 98.80/36.70 cm/s pCCA (R) 110.50/23.50 cm/s pCCA (L) 74.10/20.20 cm/s Vert (R) 42.60/ cm/s Vert (L) 41.00/ cm/s ICA/CCA 1.20 ICA/CCA 1.10 Findings Duplex evaluation demonstrates stenosis of the right proximal internal carotid artery in the range of 20-49%, lower end of scale. Duplex evaluation demonstrates stenosis of the left proximal internal carotid artery in the range of 20-49%, lower end of scale. Duplex evaluation demonstrates antegrade flow of the bilateral Vertebral Arteries. Conclusion Duplex evaluation demonstrates stenosis of the right proximal internal carotid artery in the range of 20-49%, lower end of scale. Duplex evaluation demonstrates stenosis of the left proximal internal carotid artery in the range of 20-49%, lower end of scale. Duplex evaluation demonstrates antegrade flow of the bilateral Vertebral Arteries. Tortuous vessels. Electronically signed by : Octavio Dickson MD 05/28/2021 14:49:27
--- NOTE | 2021-05-28 10:56 | NM_ITS ---
APPROVED REPORT Exam: Nuclear Stress Test Indication: HTN, DM, FM HX, C.P., SOB, PALPITATIONS, SYNCOPE Patient Location: Outpatient Stress Tech: [facility] Tech:Glenny Gage, ARRT RT (R)(N)(M) Ht: 5 ft 4 in Wt: 217 lbs Bra Size: DD HR: 70 bpm BP: 131/83 mmHg BSA: 2.03 m2 BMI: 37.2 History: HTN, DM, FM HX, C.P., SOB, PALPITATIONS, SYNCOPE Procedure: Patient received a 0.4 mg of intravenous Lexiscan, resting heart rate 70 bpm, resting blood pressure 131/83 mmHg, with Lexiscan maximum heart rate achived was 84 bpm which is Less than 85 % of the maximum predicted heart rate and blood pressure was 113/71 mmHg. With Lexiscan, patient denied any complaint of chest pain. Electrocardiogram Resting electrocardiogram shows sinus rhythm, with Lexiscan there is less than 1.[address] segment depression noted from the baseline EKG. The EKG portion of the Lexiscan Myoview is nondiagnostic. Cardiac Stress and Resting SPECT Images: Cardiac Stress and Resting SPECT images were obtained using technetium 99m Myoview 31.4 mCi stress and 10.52 mCi at rest. Gated SPECT for analysis of segmental wall motion and calculation of the ejection fraction also done. Prone images were also obtained. Cardiac stress and resting SPECT images show uniform myocardial activity without segmental perfusion abnormality, computer derived ejection fraction is 60% with no regional wall motion abnormality, right ventricle is normal size and contractility. Conclusion: 1. The EKG portion of the Lexiscan is nondiagnostic. 2. No scintigraphic evidence of reversible ischemia seen, computer derived ejection fraction is 60% with no regional wall motion abnormality, right ventricle is normal size and contractility. 3. Normal Lexiscan Myoview study. Electronically signed by : Mark Vasquez MD 05/29/2021 15:45:33
--- NOTE | 2021-05-28 13:23 | CA_ITS ---
APPROVED REPORT Exam: Pharmacologic Technologist: Pilar [place], Ht: 5 ft 4 in Wt: 217 lbs BSA: 2.03 m2 HR: 70 bpm BP: 131/83 mmHg Rhythm: NSR Indications: SOA, CP Medical History Medications: Lisinopril,,,,, Gabapentin,,,,, Flexeril,,,,, Lasix,,,,, Albuterol,,,,, ADVAIR,,,,, Vit D3,,,,, Protonix,,,,, Ibuprofen,,,,, Cymbalta,,,,, LaMICTAL,,,,, Seroquel,,,,, Stress Test Details Test: LEXISCAN HR Resting HR: 74 bpm Max Heart Rate (APMHR): 166 bpm Max HR Achieved: 85 bpm Target HR (85% APMHR): 141 bpm % of APMHR: 51 Recovery HR: 76 bpm BP Resting BP: 131/83 mmHg Max BP: 139/78 mmHg Recovery BP: 125.0/79.0 mmHg ECG Clinical Reason for Termination: Completed protocol Stress Symptoms: Chest pain, Abdominal discomfort Exercise duration: 04:01 min Highest Stage Achieved: Exercise capacity: 1.0 METs Stress ECG Conclusion Symptoms: SOA, mild chest discomfort, malaise, nausea. No arrthmias. No ST-T changes. Unremarkable Lexiscan stress. Myoview images reported separately. Test Summary REST . . . . . . . Resting REST 02:20 . . 74 . 131/ 83 . . Stage 1 . . . . . . . Cardiolite injected Stage 1 01:00 . . 78 . . . . Stage 2 01:00 . . 84 . 113/ 71 . . Stage 3 01:00 . . 84 . 117/ 74 . . Stage 4 01:00 . . 82 . 125/ 75 . . Stage 4 01:01 . . 82 . 125/ 75 . Stop exercise at 04:01 RECOVERY 01:00 . . 82 . . . . RECOVERY 02:00 . . 82 . 131/ 80 . . RECOVERY 03:00 . . 81 . 131/ 80 . . RECOVERY 04:00 . . 77 . 139/ 78 . . RECOVERY 05:00 . . 75 . 139/ 78 . . RECOVERY 06:00 . . 74 . 139/ 78 . . RECOVERY 07:00 . . 75 . 125/ 79 . . RECOVERY 08:00 . . 74 . 125/ 79 . . RECOVERY 08:34 . . 78 . 138/ 78 . . Electronically signed by : Mark Vasquez MD 05/29/2021 15:43:23
== END ==
PROVIDERS: PCP Nurse Practitioner Family; Visit Provider Urology
DX: I10 Essential (primary) hypertension (principal); I20.8 Other forms of angina pectoris; I26.99 Other pulmonary embolism without acute cor pulmonale; I27.20 Pulmonary hypertension, unspecified; R00.2 Palpitations; R06.02 Shortness of breath; R42 Dizziness and giddiness; Z95.0 Presence of cardiac pacemaker
CPT/HCPCS: 78452; 93017; 93880; A9502; J0280; J2785

== ENCOUNTER → 2021-06-16 15:41 | Outpatient (CLI) | payer MEDICARE, MEDICAID, SELFPAY ==
--- NOTE | 2021-06-16 15:45 | XR_ITS ---
FINAL REPORT CLINICAL HISTORY: RT knee pain; recent fall FINDINGS: 4 views of the right knee were obtained. There is no acute fracture or dislocation. There has been knee arthroplasty. A moderate joint effusion is present. There is anterior soft tissue swelling. IMPRESSION: No acute bony abnormality. Reviewed, Interpreted and Dictated by Zak Green III, MD Transcribed by Juve Pineda Authenticated by Zak Green III, MD on 06/16/2021 04:36:44 PM [facility]
== END ==
PROVIDERS: PCP Nurse Practitioner Family; Visit Provider Orthopaedic Surgery
DX: M25.561 Pain in right knee (principal); W19.XXXA Unspecified fall, initial encounter
CPT/HCPCS: 73564

== ENCOUNTER → 2021-06-22 12:01 | Outpatient (CLI) | payer MEDICARE, MEDICAID, SELFPAY ==
--- NOTE | 2021-06-22 12:07 | XR_ITS ---
FINAL REPORT CLINICAL HISTORY: PAIN COMPARISON: April 20, 2021 FINDINGS: RIGHT FOOT Three views of the right foot demonstrate no acute fracture or dislocation. There is moderate joint space narrowing at the 1st MTP joint. There are hypertrophic changes along the medial aspect of the distal 1st metatarsal. A small plantar spur is present. The soft tissues are unremarkable. IMPRESSION: Hypertrophic changes as described. Reviewed, Interpreted and Dictated by Demetri Florez MD Transcribed by Cristel Rodriguez Authenticated by Demetri Florez MD on 06/22/2021 03:39:[address] [facility]
== END ==
PROVIDERS: PCP Nurse Practitioner Family; Visit Provider Nurse Practitioner Family
DX: M79.671 Pain in right foot
CPT/HCPCS: 73630

== ENCOUNTER → 2021-06-25 10:05 | Outpatient (CLI) | payer MEDICARE, MEDICAID, SELFPAY ==
[2021-06-25 10:35] LABS: Basophils # 0.1 K/mm3 (0-0.2); Basophils % 0.6 % (0.1-2.0); Eosinophils # 0.3 K/mm3 (0.0-0.4); Eosinophils % 3.2 % (0.1-12.0); Hematocrit 41.9 % (37.0-47.0); Hemoglobin 13.7 g/dL (12.2-16.2); Lymphocytes % 20.4 % (10-50); Mean Corpuscular HGB Conc 32.6 g/dL (31.8-35.4); Mean Corpuscular Volume 101.1 fl (81-99); Monocytes # 0.4 K/mm3 (0.1-1.0); Monocytes % 3.9 % (1.7-9.3); Neutrophils % 71.8 % (37.0-80.0); Platelet Count 298 K/mm3 (142-424); Red Blood Count 4.14 M/mm3 (4.20-5.40); White Blood Count 9.8 K/mm3 (4.8-10.8)
[2021-06-25 10:58] LABS: Erythrocyte Sedimentation Rate 49 mm/hr (0-30)
[2021-06-25 11:11] LABS: Chloride 97 mmol/L (98-107); Potassium 4.5 mmoL/L (3.5-5.1); Sodium 138 mmol/L (136-145)
[2021-06-25 11:13] LABS: Blood Urea Nitrogen 10 mg/dl (7-17); Estimated Glomerular Filt Rate 65 ml/min (>60); GFR (African American) 79 ML/MIN (>60)
[2021-06-25 11:14] LABS: Alanine Aminotransferase 29 U/L (12-78); Albumin Level 4.6 g/dl (3.5-5.0); Albumin/Globulin Ratio 1.6 (1.1-1.8); Alkaline Phosphatase 133 U/L (38-126); Anion Gap 11.5 mEq/L (5-15); Aspartate Amino Transferase 34 U/L (14-36); Bilirubin,Total 0.3 mg/dl (0.2-1.3); Calcium 10.1 mg/dl (8.4-10.2); Carbon Dioxide 34 mmol/L (22.0-30.0); Globulin 2.9 g/dL (1.3-3.2); Glucose 96 mg/dl (74-100); Total Protein,Serum 7.5 g/dl (6.3-8.2)
[2021-06-25 12:04] LABS: Uric Acid 7.4 mg/dl (2.5-6.2)
[2021-06-25 12:09] LABS: C-Reactive Protein 3.6 mg/L (0-4)
== END ==
PROVIDERS: PCP Nurse Practitioner Family; Visit Provider Podiatrist
DX: M79.671 Pain in right foot (principal)
CPT/HCPCS: 36415; 80053; 84550; 85025; 85651; 86140

== ENCOUNTER → 2021-07-17 11:51 | Outpatient (CLI) | payer MEDICARE, MEDICAID, SELFPAY ==
--- NOTE | 2021-07-17 12:02 | XR_ITS ---
FINAL REPORT CLINICAL HISTORY: wrist pain; fall days ago FINDINGS: LEFT WRIST Three views demonstrate no acute fracture or dislocation. There are mild degenerative changes. The soft tissues are unremarkable. IMPRESSION: No acute bony abnormality. Reviewed, Interpreted and Dictated by Zak Green III, MD Transcribed by Cristel Rodriguez Authenticated by Zak Green III, MD on 07/17/2021 01:20:45 PM [facility]
== END ==
PROVIDERS: PCP Emergency Medicine; Visit Provider Orthopaedic Surgery
DX: M25.532 Pain in left wrist (principal)
CPT/HCPCS: 73110

== ENCOUNTER → 2021-07-28 16:38 | Outpatient (CLI) | payer MEDICARE, MEDICAID, SELFPAY ==
[2021-07-28 18:16] LABS: Anion Gap 13.7 mEq/L (5-15); Blood Urea Nitrogen 20 mg/dl (7-17); Calcium 9.9 mg/dl (8.4-10.2); Carbon Dioxide 36 mmol/L (22.0-30.0); Chloride 95 mmol/L (98-107); Estimated Glomerular Filt Rate 58 ml/min (>60); GFR (African American) 70 ML/MIN (>60); Glucose 96 mg/dl (74-100); Potassium 4.7 mmoL/L (3.5-5.1); Sodium 140 mmol/L (136-145)
== END ==
PROVIDERS: Visit Provider Nurse Practitioner Family
DX: E78.5 Hyperlipidemia, unspecified (principal); I10 Essential (primary) hypertension; I25.10 Atherosclerotic heart disease of native coronary artery without angina pectoris; I27.20 Pulmonary hypertension, unspecified; I51.89 Other ill-defined heart diseases; R00.2 Palpitations; R06.02 Shortness of breath; R60.9 Edema, unspecified
CPT/HCPCS: 36415; 80048

== ENCOUNTER → 2021-08-11 10:00 | Outpatient (CLI) | payer MEDICARE, MEDICAID, SELFPAY ==
--- NOTE | 2021-08-11 10:04 | XR_ITS ---
FINAL REPORT CLINICAL HISTORY: fell on hand/swollen FINDINGS: LEFT HAND: 3 views of the left hand were obtained. There is no acute fracture or dislocation. There are mild and moderate degenerative changes. There is a chronic calcification adjacent to the 4th PIP joint. IMPRESSION: No acute bony abnormality. Reviewed, Interpreted and Dictated by Zak Green III, MD Transcribed by Juve Pineda Authenticated by Zak Green III, MD on 08/11/2021 11:19:30 AM [facility]
== END ==
PROVIDERS: PCP Nurse Practitioner Family; Visit Provider Orthopaedic Surgery
DX: M79.642 Pain in left hand (principal)
CPT/HCPCS: 73130

== ENCOUNTER 2021-08-11 11:44 | Outpatient (RCR) | payer MEDICARE, MEDICAID, SELFPAY | END 2021-08-11 12:47 | disposition home or self-care (01) | LOC: OT 11:44 | PROVIDERS: Visit Provider Orthopaedic Surgery | DX: M65.4 Radial styloid tenosynovitis [de Quervain] (principal); M65.332 Trigger finger, left middle finger; M65.342 Trigger finger, left ring finger | CPT/HCPCS: 97763 ==

== ENCOUNTER 2021-09-04 00:02 | Emergency (ER) | payer MEDICARE, MEDICAID, SELFPAY ==
[2021-09-04 00:04] VITALS: BP 114/74; PULSE 88; RESP 16; TEMP 37.1; O2SAT 98; BMI 36.3
--- NOTE | 2021-09-04 00:30 | XR_ITS ---
PROCEDURE INFORMATION: Exam: XR Right Shoulder Exam date and time: 09/04/2021 12:44 AM Age: 55 years old Clinical indication: Pain; Shoulder; Right; Additional info: Right shoulder pain TECHNIQUE: Imaging protocol: XR Right shoulder. Views: 2 or more views. COMPARISON: DIANDRA SHOU3R [id number] 04/02/2017 4:41 PM FINDINGS: Bones/joints: No acute fracture or dislocation. Mild dystrophic mineralization associated with the lateral aspect of the humeral head suggestive of calcific tendinopathy. Some degenerative changes of the acromioclavicular joint are noted. Soft tissues: A 5 mm rounded opacity is noted overlying the lung that is not conclusively within the osseous structures may represent a small pulmonary nodule. Partially visualized cardiac pacer leads are noted. IMPRESSION: No acute fracture or dislocation. Some mild probable calcific tendinopathy in the shoulder. Possible 5 mm right lung pulmonary nodule. Recommend follow-up chest radiograph.
--- NOTE | 2021-09-04 00:44 | HMH.EDGENADL ---
ED Disposition Clinical Impression: Calcific tendinitis Disposition: Home, Self-Care Condition on Discharge: Good Additional Instructions: Follow up with your orthopedic doctor this upcoming week, continue any home medications as previously directed. Ok to take tylenol for pain, return with new or concerning symptoms. You do need to followup with your PCP to monitor the incidental lung nodule that was discovered on the shoulder XR. Referrals: Manuel Cunha APRN [Primary Care Provider] - - Critical Care Critical Care Time: No Attestation: On 09/04/21, the high probability of a clinically significant, sudden or life threatening deterioration of the following system(s) required my full and direct attention, intervention and personal management. The time I documented below is in addition to time spent performing reported procedures but includes the following listed in this critical care notation. Medical Decision Making - Medical Records Medical records reviewed: Yes: I reviewed the patient's medical records. - [place] Inquiry Pt receiving controlled substance: No Vital Signs: 09/04/21 00:04 Temperature 98.7 F Temperature Source Oral Pulse Rate [Left] 88 Respiratory Rate 16 Blood Pressure [Right Arm] 114/74 Blood Pressure Mean [Right Arm] 87 02 Sat by Pulse Oximetry 98 Oxygen Delivery Method Room Air Orders (Tests/Meds): ED MEDICATIONS Discontinued Medications Generic Name Dose Route Start Last Admin Trade Name Freq PRN Reason Stop Dose Admin Acetaminophen 500 mg 09/04/21 00:31 09/04/21 01:21 Acetaminophen 500mg Tab PO 09/04/21 00:32 500 mg ONCE ONE Administration Methocarbamol 1,500 mg 09/04/21 00:32 09/04/21 01:21 Methocarbamol 500mg Tablet PO 09/04/21 00:33 1,500 mg ONCE ONE Administration - Radiology Data #1 Image(s): Shoulder Image Reviewed: Yes I reviewed the patient's radiology results, Yes I reviewed the patient's radiology image INDINGS: Bones/joints: No acute fracture or dislocation. Mild dystrophic mineralization associated with the lateral aspect of the humeral head suggestive of calcific tendinopathy. Some degenerative changes of the acromioclavicular joint are noted. Soft tissues: A 5 mm rounded opacity is noted overlying the lung that is not conclusively within the osseous structures may represent a small pulmonary nodule. Partially visualized cardiac pacer leads are noted. IMPRESSION: No acute fracture or dislocation. Some mild probable calcific tendinopathy in the shoulder. Possible 5 mm right lung pulmonary nodule. Recommend follow-up chest radiograph. Medical Decision Narrative: 55-year-old female with history of pulmonary hypertension, obesity, cervical radiculopathy presenting to the ED with right shoulder pain x3 weeks. Differential diagnoses include humerus fracture, AC joint dislocation, rotator cuff injury, cervical radiculopathy, fall, cellulitis, tendonopathy. Workup will include x-ray of the right shoulder, physical exam. Labs not indicated. Vital signs are stable, afebrile, no systemic signs infection. She was given Robaxin and Tylenol for pain. Clinically less suspicious for underlying infection of the left third digit, no evidence of flexor or extensor tenosynovitis, no cellulitic changes or underlying abscess. Patient has full ROM in the right arm, no focal neurological deficits. X-ray right shoulder consistent with calcific tendinopathy of the right shoulder, incidental finding of 5 mm lung nodule. Discussed this with patient, she will need followup radiographs for this. She has an appointment with orthopedic surgery this upcoming week for her right arm symptoms. At this point she is ok for discharge, all questions answered prior and she is amenable to this plan. General Adult HPI - General Chief complaint: PAIN Stated complaint: AO 3 wks ago injury right shoulder,Left middle fin Time Seen b
[2021-09-04 02:18] VITALS: BP 113/71; PULSE 64; RESP 16; TEMP 37.1; O2SAT 98
== END 2021-09-04 02:20 | disposition home or self-care (01) ==
PROVIDERS: Emergency Provider Emergency Medicine; PCP Nurse Practitioner Family
DX: M75.31 Calcific tendinitis of right shoulder (principal); I27.20 Pulmonary hypertension, unspecified; F41.8 Other specified anxiety disorders; E03.9 Hypothyroidism, unspecified; K21.9 Gastro-esophageal reflux disease without esophagitis; Z79.01 Long term (current) use of anticoagulants; E78.5 Hyperlipidemia, unspecified; Z79.899 Other long term (current) drug therapy
CPT/HCPCS: 73030; 99283

== ENCOUNTER 2021-09-19 01:26 | Emergency (ER) | payer MEDICARE, MEDICAID, SELFPAY ==
[2021-09-19 01:27] VITALS: BP 124/76; PULSE 77; RESP 17; TEMP 36.8; O2SAT 96; BMI 36.3
--- NOTE | 2021-09-19 01:43 | XR_ITS ---
PROCEDURE INFORMATION: Exam: XR Right Shoulder Exam date and time: 09/19/2021 1:56 AM Age: 55 years old Clinical indication: Pain; Shoulder; Right; Additional info: Fall a month ago pain still in RT shoulder TECHNIQUE: Imaging protocol: XR Right shoulder. Views: 2 or more views. COMPARISON: CR XR SHOULDER RT MIN 2V 09/04/2021 12:44 AM FINDINGS: Bones/joints: Moderate osteophytosis and degenerative changes involve the AC joint. Lungs: Right upper lobe 6 mm calcified granuloma unchanged from prior exam. Soft tissues: Normal. IMPRESSION: Moderate osteophytosis and degenerative changes involve the AC joint.
--- NOTE | 2021-09-19 01:50 | HMH.EDUPEXT ---
ED Disposition Clinical Impression: Shoulder bursitis Qualifiers: Laterality: right Qualified Code(s): M75.51 - Bursitis of right shoulder Disposition: Home, Self-Care Condition on Discharge: Good Instructions: DI for Shoulder Pain Additional Instructions: use meds and see pcp for follow up Prescriptions: Minocycline HCl [Minocycline HCl 100mg Tab*] 100 mg PO BID #20 tab Transmission Status: Pending to [id number] predniSONE [Prednisone 20mg Tab] 20 mg PO BID #10 tab Transmission Status: [facility] Referrals: Manuel Cunha APRN [Primary Care Provider] - - Critical Care Critical Care Time: No Attestation: On 09/19/21, the high probability of a clinically significant, sudden or life threatening deterioration of the following system(s) required my full and direct attention, intervention and personal management. The time I documented below is in addition to time spent performing reported procedures but includes the following listed in this critical care notation. Medical Decision Making - Medical Records Medical records reviewed: Yes: I reviewed the patient's medical records. - [place] Inquiry Pt receiving controlled substance: No Vital Signs: 09/19/21 01:27 Temperature 98.3 F Temperature Source Oral Pulse Rate [Left Radial] 77 Respiratory Rate 17 Blood Pressure [Left Arm] 124/76 Blood Pressure Mean [Left Arm] 92 Blood Pressure Source [Left Arm] Automatic Cuff Blood Pressure Position [Left Arm] Sitting 02 Sat by Pulse Oximetry 96 Oxygen Delivery Method Room Air - Lab Data Lab results reviewed: Yes: I reviewed the patient's lab results. Lab Results 09/19/21 01:37: Group A Strep Rapid Negative Orders (Tests/Meds): ED MEDICATIONS Discontinued Medications Generic Name Dose Route Start Last Admin Trade Name Freq PRN Reason Stop Dose Admin Ketorolac Tromethamine 30 mg 09/19/21 01:46 09/19/21 01:49 Ketorolac 30mg/Ml Vial IM 09/19/21 01:47 30 mg ONCE ONE Administration ORDERS Category Date Time Status Humerus XR right [XR humerus RT] Stat Exams 09/19/21 01:43 Stop Req XR shoulder RT min 2V Stat Exams 09/19/21 01:43 Taken Strep Screen Confirmation Stat Micro 09/19/21 01:37 Received - Radiology Data #1 Image(s): Shoulder Image Reviewed: Yes I have reviewed radiologist's interpretation Preliminary Findings: No Fracture Seen Medical Decision Narrative: shoulder pain w/o fx but dec rom Upper Extremity HPI - General Chief Complaint: Upper Respiratory Infection Stated Complaint: Right neck pain,mouth sore Time Seen by Provider: 09/19/21 01:50 Mode of Arrival: Ambulatory Source of Information: Patient, Medical Record Limitations: No Limitations Description of Symptoms (Recalled from ER Triage Doc. by RN): PT REPORTS MOUTH IS SORE WITH BLISTERS AND PAINFUL SWALLOWING FOR THE LAST FEW DAYS. PT REPORTS FALL ON ICE - 1 MONTH AGO WITH RIGHT SHOULDER PAIN THAT RADIATES DOWN HER RIGHT ARM. PT REPORTS SHE HAD AN APPT WITH DR. HERNANDEZ BUT DID NOT GO. - History of Present Illness HPI narrative: pt with fall a few weeks ago and has pain rt shoulder worse over the last few days - no new trauma - also concerned about blisters on tongue - MD complaint: injury to: right, shoulder Onset (ago): week(s) Other Extremity Injury: Right: shoulder Other injuries: none Handedness: right Place: home Severity: moderate Context: fall Associated symptoms: denies other symptoms - Related Data Home Medications Medication Instructions Recorded Confirmed albuterol sulfate 90 mcg/actuation 2 puff INHALATION Q4-6H PRN 07/19/17 09/02/21 aerosol inhaler lamotrigine 200 mg tablet 200 mg PO BID tab 07/19/17 09/02/21 Cholecalciferol (Vitamin D3) 1,000 unit PO DAILY 07/05/18 09/02/21 [Vitamin D3 1,000 Unit Cap] Fluticasone/Salmeterol [Advair 1 puff IH BID 07/05/18 09/02/21 500/50mcg diskus] Multivit with Minerals/Herbs 1 each PO
[2021-09-19 02:03] LABS: Strep Scrn Group A (Rapid) Negative (Negative)
[2021-09-19 03:02] VITALS: BP 127/73; PULSE 70; RESP 18; TEMP 36.8; O2SAT 99
== END 2021-09-19 03:06 | disposition home or self-care (01) ==
PROVIDERS: Emergency Provider Emergency Medicine; PCP Nurse Practitioner Family
DX: M75.51 Bursitis of right shoulder (principal); M79.601 Pain in right arm; M54.2 Cervicalgia; N39.0 Urinary tract infection, site not specified; K13.79 Other lesions of oral mucosa; D64.9 Anemia, unspecified; R07.9 Chest pain, unspecified; R00.2 Palpitations; R55 Syncope and collapse; R06.02 Shortness of breath; I95.9 Hypotension, unspecified; I10 Essential (primary) hypertension; I25.119 Atherosclerotic heart disease of native coronary artery with unspecified angina pectoris; I26.99 Other pulmonary embolism without acute cor pulmonale; K21.9 Gastro-esophageal reflux disease without esophagitis; E78.5 Hyperlipidemia, unspecified; E03.9 Hypothyroidism, unspecified; R29.6 Repeated falls; M19.90 Unspecified osteoarthritis, unspecified site; J98.4 Other disorders of lung; J45.909 Unspecified asthma, uncomplicated; F32.A Depression, unspecified; F41.9 Anxiety disorder, unspecified; Z79.01 Long term (current) use of anticoagulants; Z79.1 Long term (current) use of non-steroidal anti-inflammatories (NSAID); Z79.51 Long term (current) use of inhaled steroids; Z79.52 Long term (current) use of systemic steroids; Z79.899 Other long term (current) drug therapy; Z88.2 Allergy status to sulfonamides; Z88.8 Allergy status to other drugs, medicaments and biological substances; Z95.0 Presence of cardiac pacemaker; Z82.49 Family history of ischemic heart disease and other diseases of the circulatory system; Z83.49 Family history of other endocrine, nutritional and metabolic diseases; Z81.8 Family history of other mental and behavioral disorders
CPT/HCPCS: 73030; 87430; 99284

== ENCOUNTER → 2021-09-21 11:57 | Outpatient (CLI) | payer MEDICARE, MEDICAID, SELFPAY ==
--- NOTE | 2021-09-21 12:07 | XR_ITS ---
FINAL REPORT CLINICAL HISTORY: rt shoulder pain COMPARISON: September 19, 2021 FINDINGS: 3 views of the right shoulder were obtained. There is no acute fracture or dislocation. There are mild hypertrophic changes at the AC joint. There are no soft tissue abnormalities. IMPRESSION: Mild hypertrophic change at the AC joint. Reviewed, Interpreted and Dictated by Demetri Florez MD Transcribed by Juve Pineda Authenticated by Demetri Florez MD on 09/21/2021 01:21:09 PM [facility]
== END ==
PROVIDERS: PCP Nurse Practitioner Family; Visit Provider Orthopaedic Surgery
DX: M25.511 Pain in right shoulder (principal)
CPT/HCPCS: 73030

== ENCOUNTER → 2021-10-01 12:24 | Outpatient (CLI) | payer MEDICARE, MEDICAID, SELFPAY ==
[2021-10-01 12:59] LABS: Basophils # 0.1 K/mm3 (0-0.2); Eosinophils % 0.3 % (0.1-12.0); Hematocrit 42.7 % (37.0-47.0); Hemoglobin 13.9 g/dL (12.2-16.2); Lymphocytes # 1.3 K/mm3 (0.7-4.5); Lymphocytes % 14.2 % (10-50); Mean Corpuscular HGB Conc 32.6 g/dL (31.8-35.4); Mean Corpuscular Volume 104.5 fl (81-99); Mean Platelet Volume 8.8 fl (7.4-10.4); Monocytes # 0.5 K/mm3 (0.1-1.0); Monocytes % 5.3 % (1.7-9.3); Neutrophils # 7.5 K/mm3 (1.8-7.8); Neutrophils % 79.3 % (37.0-80.0); Platelet Count 226 K/mm3 (142-424); Red Blood Count 4.08 M/mm3 (4.20-5.40); Red Cell Distribution Width 13.7 % (11.5-17.5); White Blood Count 9.4 K/mm3 (4.8-10.8)
[2021-10-01 13:15] LABS: Chloride 104 mmol/L (98-107); Potassium 4.1 mmoL/L (3.5-5.1); Sodium 139 mmol/L (136-145)
[2021-10-01 13:17] LABS: Blood Urea Nitrogen 20 mg/dl (7-17); Estimated Glomerular Filt Rate 65 ml/min (>60); GFR (African American) 79 ML/MIN (>60)
[2021-10-01 13:18] LABS: Alanine Aminotransferase 41 U/L (12-78); Albumin/Globulin Ratio 1.4 (1.1-1.8); Alkaline Phosphatase 137 U/L (38-126); Anion Gap 10.1 mEq/L (5-15); Aspartate Amino Transferase 34 U/L (14-36); Bilirubin,Total 0.6 mg/dl (0.2-1.3); Carbon Dioxide 29 mmol/L (22.0-30.0); Globulin 2.8 g/dL (1.3-3.2); Glucose 94 mg/dl (74-100); Total Protein,Serum 6.8 g/dl (6.3-8.2)
[2021-10-01 13:23] LABS: C-Reactive Protein 1.8 mg/L (0-4)
[2021-10-01 13:27] LABS: Erythrocyte Sedimentation Rate 21 mm/hr (0-30)
[2021-10-01 13:43] LABS: Hemoglobin A1C 5.3 % (4.0-6.0)
== END ==
PROVIDERS: Visit Provider Nurse Practitioner Family
DX: M54.12 Radiculopathy, cervical region (principal); Z51.89 Encounter for other specified aftercare; E11.8 Type 2 diabetes mellitus with unspecified complications
CPT/HCPCS: 36415; 80053; 83036; 85025; 85651; 86140

== ENCOUNTER 2021-10-02 20:07 | Emergency (ER) | payer MEDICARE, MEDICAID, SELFPAY ==
[2021-10-02 20:39] VITALS: PULSE 104; RESP 22; TEMP 36.9; O2SAT 98; BMI 36.7
--- NOTE | 2021-10-02 21:30 | HMH.EDUTC ---
[facility] Disposition Clinical Impression: Urticaria Disposition: Home, Self-Care Condition on Discharge: Good Instructions: Hives, DI for Hives Additional Instructions: Make sure to pick you your medication and start it immediately to help with itching Return if needed Follow up with your Family Doctor if no improvement or any worsening of symptoms Straight to ER if any life threatening symptoms Referrals: Manuel Cunha APRN [Primary Care Provider] - As needed Forms: Work/School Release Medical Decision Making - [place] Inquiry Pt receiving controlled substance: No [place] was queried for this patient: No Vital Signs: 10/02/21 20:39 Temperature 98.4 F Temperature Source Oral Pulse Rate [Left] 104 H Respiratory Rate 22 02 Sat by Pulse Oximetry 98 Orders (Tests/Meds): ED MEDICATIONS Discontinued Medications Generic Name Dose Route Start Last Admin Trade Name Freq PRN Reason Stop Dose Admin Methylprednisolone Sodium Succinate 125 mg 10/02/21 21:38 10/02/21 21:45 Methylprednisolone Sod Succ 125mg Vial IM 10/02/21 21:39 125 mg ONCE ONE Administration Medical Decision Narrative: Patient state that she is a diabetic but has taken Solu Medrol in the past without complications or reactions medication discussed with pharmacy Patient state that rash is much better now almost gone [facility] HPI - General Stated complaint: hives Time Seen by Provider: 10/02/21 21:31 Mode of Arrival: Ambulatory Source of Information: Patient Limitations: No Limitations Description of Symptoms (Recalled from Triage Doc. by RN): pt c/o hives all over and itching HEENT Symptoms (Recalled from RN notes): No Resp Symptoms (Recalled from RN notes): No Skin Symptoms (Recalled from RN notes): Yes MS Symptoms (Recalled from RN notes): No Functional Status (Recalled from RN notes): wnl - History of Present Illness Provider Complaint: Patient states she has been having hives and itching all over not sure what she may be having a reaction too States that she was seen at [place] a couple days ago and prescribed some medication but hasnt had it filled yet so tonight she started breaking out again so she came in - Related Data Home Medications Medication Instructions Recorded Confirmed albuterol sulfate 90 mcg/actuation 2 puff INHALATION Q4-6H PRN 07/19/17 10/01/21 aerosol inhaler lamotrigine 200 mg tablet 200 mg PO BID tab 07/19/17 10/01/21 Cholecalciferol (Vitamin D3) 1,000 unit PO DAILY 07/05/18 10/01/21 [Vitamin D3 1,000 Unit Cap] Fluticasone/Salmeterol [Advair 1 puff IH BID 07/05/18 10/01/21 500/50mcg diskus] Multivit with Minerals/Herbs 1 each PO DAILY 07/05/18 10/01/21 [Women's Biomultiple Tablet] quetiapine 200 mg tablet 400 mg PO QHS tab 09/26/20 10/01/21 ibuprofen 400 mg tablet 400 mg PO Q8H PRN 10/16/20 10/01/21 duloxetine 30 mg capsule,delayed 30 mg PO DAILY cap 01/01/21 10/01/21 release erythromycin 5 mg/gram (0.5 %) eye 1 applic OPHTHALMIC PRN g 05/14/21 10/01/21 ointment linaclotide 290 mcg capsule 290 mcg PO DAILY cap 05/14/21 10/01/21 pantoprazole 40 mg tablet,delayed 40 mg PO DAILY tab 05/14/21 10/01/21 release cetirizine 10 mg tablet 10 mg PO PRN tab 06/25/21 10/01/21 naloxegol 25 mg tablet 25 mg PO DAILY tab 06/25/21 10/01/21 bupropion HCl 200 mg tablet,12 hr 200 mg PO DAILY each 08/20/21 10/01/21 sustained-release cephalexin 500 mg capsule 500 mg PO QID cap 10/01/21 10/01/21 famotidine 20 mg tablet 20 mg PO DAILY tab 10/01/21 10/01/21 pregabalin 150 mg capsule 150 mg PO BID cap 10/01/21 10/01/21 Previous Rx's Medication Instructions Recorded ondansetron 4 mg disintegrating 4 mg PO Q6H PRN #30 tab 04/11/21 tablet cyclobenzaprine 10 mg tablet 10 mg PO TID PRN #60 tab 05/06/21 apixaban 5 mg tablet See Rx Instructions .ROUTE 06/05/21 .COMPLEX #180 tab atogepant 60 mg tablet 60 mg PO DAILY #30 tab 06/25/21 galcanezumab-gnlm 120 mg/mL 120 mg SQ QMONTH #1 ml 01
[2021-10-02 21:54] VITALS: BP 146/92; PULSE 97; RESP 22; TEMP 36.9
== END 2021-10-02 21:59 | disposition home or self-care (01) ==
PROVIDERS: Emergency Provider Nurse Practitioner; PCP Nurse Practitioner Family
DX: L50.0 Allergic urticaria (principal)
CPT/HCPCS: 96372; 99212; G0463

== ENCOUNTER → 2021-10-16 16:28 | Outpatient (CLI) | payer MEDICARE, MEDICAID, SELFPAY ==
--- NOTE | 2021-10-16 16:28 | MM_ITS ---
PROCEDURE INFORMATION: Exam: MG Right Diagnostic Breast Tomosynthesis Exam date and time: 10/16/2021 4:25 PM Age: 55 years old Clinical indication: Six-month follow-up of 0.7 cm nodule in the right central breast, from 01/06/2021. TECHNIQUE: Imaging protocol: Right Diagnostic tomosynthesis and 2D mammography including computer-aided detection (CAD) when performed. Unilateral or bilateral exam. COMPARISON: 1. MG MM DIG SCREENING MAMM BI W/CAD 01/06/2021 11:09 AM 2. MG MM DIG SCREENING MAMM BI W/CAD 01/17/2019 8:56 AM 3. MG DXRT MM Dig mamm DX unilat RT CAD 01/20/2018 2:31 PM 4. MG SCBI MM Dig screening mamm BI w/CAD 01/11/2018 12:05 PM FINDINGS: MAMMOGRAPHY: Breast composition: There are scattered areas of fibroglandular density. Mass: 0.7 cm oval mass/asymmetry in the upper breast, middle to posterior 3rd, best seen in the MLO projection, appears unchanged. Architectural distortion: None. Calcifications: No suspicious calcifications. Asymmetric density: None. Skin thickening: None. Axillary adenopathy: None. IMPRESSION: No interval change, suggest continued six-month follow-up for right breast nodule/asymmetry to complete a 2 year cycle. Patient is due for her bilateral screening mammogram in December 2021, unless otherwise clinically indicated. ASSESSMENT: BI-RADS Category 3: Probably benign
== END ==
PROVIDERS: PCP Nurse Practitioner Family; Visit Provider Nurse Practitioner Obstetrics & Gynecology
DX: R92.8 Other abnormal and inconclusive findings on diagnostic imaging of breast (principal)
CPT/HCPCS: 77061; 77065; G0279

== ENCOUNTER 2021-11-11 11:42 | Outpatient (RCR) | payer MEDICARE, MEDICAID, SELFPAY | END 2021-11-11 12:45 | disposition home or self-care (01) | LOC: OT 11:42 | PROVIDERS: Visit Provider Orthopaedic Surgery | DX: M25.511 Pain in right shoulder (principal); R20.2 Paresthesia of skin | CPT/HCPCS: 97763 ==

== ENCOUNTER 2021-11-18 13:59 | Emergency (ER) | payer MEDICARE, MEDICAID, SELFPAY ==
[2021-11-18 14:13] VITALS: BP 135/94; PULSE 83; RESP 19; TEMP 36.4; O2SAT 99; BMI 34.3
--- NOTE | 2021-11-18 14:24 | HMH.EDUTC ---
[facility] [place] Clinical Impression: Viral syndrome, Bronchitis Pharyngitis Qualifiers: Pharyngitis/tonsillitis etiology: unspecified etiology Qualified Code(s): J02.9 - Acute pharyngitis, unspecified Disposition: Home, Self-Care Condition on Discharge: Good Instructions: DI for Acute Bronchitis, Preventing the Spread of Coronavirus Discharge Instructions Additional Instructions: Drink plenty of fluids. Take tylenol or ibuprofen for pain or fever. Take the medications as directed. Follow up with your regular doctor. GO TO THE ER FOR ANY WORSENING SYMPTOMS Quarantine until you know the results of your covid-19 test. Notify your school or workplace of your results and follow their instructions regarding return to work/school. Prescriptions: Benzonatate [Benzonatate 100mg cap] 100 mg PO TIDP PRN #30 cap PRN Reason: Cough [facility] methylPREDNISolone [Medrol] 4 mg PO DIRECTED 6 Days #21 packet Transmission Status: [facility] guaiFENesin [Mucinex 600mg tablet] 1 - 2 tab PO BIDP PRN #30 tab PRN Reason: Congestion Transmission Status: [facility] Azithromycin [Z-Cj 250mg Tab*] 250 mg PO UD DOSE PK #6 tab Transmission Status: [facility] Referrals: Manuel Cunha APRN [Primary Care Provider] - Forms: Work/School Release Time of Disposition: 14:51 Medical Decision Making - Medical Records Medical records reviewed: No: I reviewed the patient's medical records. - [place] Inquiry Pt receiving controlled substance: No Vital Signs: 11/18/21 14:13 11/18/21 14:54 Temperature 97.6 F 97.6 F Temperature Source Oral Pulse Rate 83 Pulse Rate [Left Radial] 83 Respiratory Rate 19 19 Blood Pressure 135/94 H Blood Pressure [Right Arm] 135/94 H Blood Pressure Mean [Right Arm] 107 02 Sat by Pulse Oximetry 99 - Lab Data Lab results reviewed: Yes: I reviewed the patient's lab results. Lab Results 11/18/21 14:11: Group A Strep Rapid Negative Orders (Tests/Meds): ORDERS Category Date Time Status Covid-19 Nasal PCR ([facility]) Routine Lab 11/18/21 14:11 Received Strep Screen Confirmation Stat Micro 11/18/21 14:11 [place] [facility] [place] - General Stated complaint: nausea,chills off and on Time Seen by Provider: 11/18/21 14:25 Description of Symptoms (Recalled from Triage Doc. by RN): patient here for nausea, chills, diarrhea, fatigue. patient states symptoms began tuesday Symptoms (Recalled from RN notes): Yes Resp Symptoms (Recalled from RN notes): No Skin Symptoms (Recalled from RN notes): No MS Symptoms (Recalled from RN notes): No Functional Status (Recalled from RN notes): wnl - History of Present Illness Provider Complaint: She states that for the past 2 days she has had sore throat, sinus congestion, sinus drainage and chilling. - Related Data Home Medications Medication Instructions Recorded Confirmed albuterol sulfate 90 mcg/actuation 2 puff INHALATION Q4-6H PRN 07/19/17 11/11/21 aerosol inhaler lamotrigine 200 mg tablet 200 mg PO BID tab 07/19/17 11/11/21 Cholecalciferol (Vitamin D3) 1,000 unit PO DAILY 07/05/18 11/11/21 [Vitamin D3 1,000 Unit Cap] Fluticasone/Salmeterol [Advair 1 puff IH BID 07/05/18 11/11/21 500/50mcg diskus] Multivit with Minerals/Herbs 1 each PO DAILY 07/05/18 11/11/21 [Women's Biomultiple Tablet] quetiapine 200 mg tablet 400 mg PO QHS tab 09/26/20 11/11/21 ibuprofen 400 mg tablet 400 mg PO Q8H PRN 10/16/20 11/11/21 duloxetine 30 mg capsule,delayed 30 mg PO DAILY cap 01/01/21 11/11/21 release erythromycin 5 mg/gram (0.5 %) eye 1 applic OPHTHALMIC PRN g 05/14/21 11/11/21 ointment linaclotide 290 mcg capsule 290 mcg PO DAILY cap 05/14/21 11/11/21 pantoprazole 40 mg tablet,delayed 40 mg PO DAILY tab 05/14/21 11/11/21 release cetirizine 10 mg tablet 10 mg PO PRN tab 06/25/21 11/11/21 naloxeg
[2021-11-18 14:40] LABS: Strep Scrn Group A (Rapid) Negative (Negative)
[2021-11-18 14:54] VITALS: BP 135/94; PULSE 83; RESP 19; TEMP 36.4
== END 2021-11-18 14:59 | disposition home or self-care (01) ==
PROVIDERS: Emergency Provider Nurse Practitioner Family; PCP Nurse Practitioner Family
DX: J40 Bronchitis, not specified as acute or chronic (principal); B34.9 Viral infection, unspecified
CPT/HCPCS: 87430; 99212; C9803; G0463; U0003; U0005

== ENCOUNTER 2021-12-08 11:01 | Outpatient (RCR) | payer MEDICARE, MEDICAID, SELFPAY ==
--- NOTE | 2021-12-08 16:50 | HMH.OTOPEV ---
OT Inpatient Evaluation Rehab OT Outpatient Eval Start: 12/08/21 16:35 Freq: Status: Active Protocol: Document 12/08/21 16:35 NELLY (Rec: 12/08/21 16:50 NELLY [id number]) Electronically Signed By Dea Chaudhari OT 12/08/21 16:35 Outpatient Therapy Subjective History Subjective History 55 year old female referred to skilled OP OT services for right shoulder pain. on x-ray completed on rt shld with mild hypertrophic change to AC joint. Patient stated to have fallen on ice out in her parking lot back in May 2021. Patient stated having a hx of falling at home and OOB with no reculation of how it occured. Patient does have a pacemaker that was placed on . Chief Complaint Pain,Weakness Symptom Type Ache,Numbness,Tingling Symptoms Relieved By OTC Meds Symptoms Aggravated By Physical Activity Prior Functional Limitations None Current Functional Limitations Reaching,Lifting,Recreation Activity Symptom Description Constant and Continuous Level of pain today (0-10) 6 Pain scale - at its best (0-10) 6 Pain scale - at its worst (0-10) 10 Shoulder/Elbow Eval Shoulder Objective Measurements Shoulder ROM Right Shoulder Abduction Active Range of 80 Motion (degrees) Shoulder Flexion Active Range of Motion 126 (degrees) Query Text: Shoulder External Rotation Active Range 20 of Motion (degrees) Shoulder Internal Rotation Active Range 30 of Motion (degrees) pain with active ROM shoulder exam right standard Shoulder MMT Shoulder Abduction Strength Grade 2+ Poor+ Shoulder Extension Strength Grade 2+ Poor+ Shoulder Flexion Strength Grade 2+ Poor+ Shoulder Horizontal Abduction Strength 2+ Poor+ Grade Shoulder Horizontal Adduction Strength 2+ Poor+ Grade Infraspinatus/Teres Minor Strength Grade 2+ Poor+ Shoulder External Rotation Strength 2+ Poor+ Grade Shoulder Internal Rotation Strength 2+ Poor+ Grade Shoulder Special Tests impingement sign present shoulder exam right standard Shoulder Empty Can (Supraspinatus) Test Positive Right Shoulder Mckoy-Trip Impingement Positive Right Test Elbow Objective Measurements OT Outpatient
== END 2021-12-08 11:05 | disposition home or self-care (01) ==
LOC: OT 11:01
PROVIDERS: PCP Nurse Practitioner Family; Visit Provider Orthopaedic Surgery
DX: M25.511 Pain in right shoulder (principal)
CPT/HCPCS: 97165

== ENCOUNTER → 2021-12-25 15:56 | Outpatient (CLI) | payer MEDICARE, MEDICAID, SELFPAY ==
[2021-12-25 15:01] LABS: Adenovirus,PCR Not Detected (NotDetected); Coronavirus 229E Not Detected (NotDetected); Coronavirus NL63 Not Detected (NotDetected); Coronavirus OC43 Not Detected (NotDetected); Coronovirus HKU1,PCR Not Detected (NotDetected); Human Metapneumovirus Not Detected (NotDetected); Influenza A, PCR Not Detected (NotDetected); Influenza AH1, 2009 Not Detected (NotDetected); Influenza AH1, PCR Not Detected (NotDetected); Influenza AH3,PCR Not Detected (NotDetected); Rhinovirus/Enterovirus Not Detected (NotDetected)
[2021-12-25 15:02] LABS: Bordetella Pertussis Not Detected (NotDetected); Chlamydophila Pneumoniae, PCR Not Detected (NotDetected); Coronavirus 19, PCR Not Detected (NotDetected); Influenza B, PCR Not Detected (NotDetected); Mycoplasma Pneumoniae, PCR Not Detected (NotDetected); Parainfluenza 1, PCR Not Detected (NotDetected); Parainfluenza 2, PCR Not Detected (NotDetected); Parainfluenza 4, PCR Not Detected (NotDetected); Respiratory Syncytial Virus Not Detected (NotDetected)
[2021-12-25 18:05] LABS: Parainfluenza 3, PCR Detected (NotDetected)
== END ==
PROVIDERS: PCP Nurse Practitioner Family; Visit Provider Nurse Practitioner Family
DX: Z20.822 Contact with and (suspected) exposure to COVID-19 (principal); B34.8 Other viral infections of unspecified site
CPT/HCPCS: 87581; 87632; 87798; C9803; U0003; U0005

== ENCOUNTER 2022-01-09 01:08 | Emergency (ER) | payer MEDICARE, MEDICAID, SELFPAY ==
[2022-01-09 01:11] VITALS: BP 115/70; PULSE 98; RESP 16; TEMP 36.9; O2SAT 98; BMI 35.6
[2022-01-09 01:21] VITALS: BMI 35.6
--- NOTE | 2022-01-09 01:23 | XR_ITS ---
PROCEDURE INFORMATION: Exam: XR Chest Exam date and time: 01/09/2022 1:30 AM Age: 56 years old Clinical indication: Shortness of breath; Additional info: SOA TECHNIQUE: Imaging protocol: Radiologic exam of the chest. Views: 2 views. COMPARISON: CR XR RIBS RT MIN 3V W CXR1V 04/20/2021 1:32 PM FINDINGS: Tubes, catheters and devices: Left subclavian pacemaker with distal wires overlying right atrium and right ventricle. Lungs: Unremarkable. No consolidation. Pleural spaces: Unremarkable. No pleural effusion. No pneumothorax. Heart/Mediastinum: Unremarkable. No cardiomegaly. Bones/joints: Prior anterior cervical spine fusion plate. Rotoscoliosis. Degenerative changes of the spine and shoulders. IMPRESSION: No evidence of acute cardiopulmonary process.
--- NOTE | 2022-01-09 01:23 | ECG_ITS ---
APPROVED REPORT Exam: Resting ECG HR:92 bpm ECG Measurements Heart Rate 92 AXES ME 190 P 20 QRSd 104 QRS -8 QT 371 T 48 QTc 420 Conclusion SINUS RHYTHM NONSPECIFIC T-WAVE ABNORMALITY BORDERLINE ECG UNCONFIRMED REPORT Electronically signed by : Sonido Hackett MD 01/09/2022 08:12:24
[2022-01-09 01:30] LABS: Coronavirus 19, PCR Not Detected (NotDetected); Influenza A, PCR Not Detected (NotDetected); Influenza B, PCR Not Detected (NotDetected)
[2022-01-09 01:58] LABS: Basophils # 0.1 K/mm3 (0-0.2); Eosinophils # 0.2 K/mm3 (0.0-0.4); Eosinophils % 1.7 % (0.1-12.0); Hematocrit 39.8 % (37.0-47.0); Hemoglobin 12.4 g/dL (12.2-16.2); Lymphocytes # 3.1 K/mm3 (0.7-4.5); Lymphocytes % 21.9 % (10-50); Mean Corpuscular Hemoglobin 32.4 pg (27.0-31.2); Mean Corpuscular Volume 104.5 fl (81-99); Mean Platelet Volume 8.6 fl (7.4-10.4); Monocytes # 0.7 K/mm3 (0.1-1.0); Monocytes % 4.6 % (1.7-9.3); Neutrophils # 10.1 K/mm3 (1.8-7.8); Neutrophils % 70.9 % (37.0-80.0); Platelet Count 314 K/mm3 (142-424); Red Blood Count 3.81 M/mm3 (4.20-5.40); Red Cell Distribution Width 13.5 % (11.5-17.5); White Blood Count 14.3 K/mm3 (4.8-10.8)
[2022-01-09 02:01] LABS: Alanine Aminotransferase 40 U/L (12-78); Albumin Level 3.9 g/dl (3.5-5.0); Albumin/Globulin Ratio 1.3 (1.1-1.8); Alkaline Phosphatase 142 U/L (38-126); Anion Gap 11.3 mEq/L (5-15); Aspartate Amino Transferase 42 U/L (14-36); Blood Urea Nitrogen 11 mg/dl (7-17); Calcium 9.4 mg/dl (8.4-10.2); Carbon Dioxide 29 mmol/L (22.0-30.0); Chloride 101 mmol/L (98-107); Creatinine Clearance Estimated 105 mL/min (50-200); Estimated Glomerular Filt Rate 65 ml/min (>60); GFR (African American) 79 ML/MIN (>60); Globulin 2.9 g/dL (1.3-3.2); Glucose 158 mg/dl (74-100); Potassium 3.3 mmoL/L (3.5-5.1); Sodium 138 mmol/L (136-145); Total Protein,Serum 6.8 g/dl (6.3-8.2)
[2022-01-09 02:06] LABS: C-Reactive Protein 9.2 mg/L (0-4)
[2022-01-09 02:10] LABS: Bilirubin,Total < 0.1 mg/dl (0.2-1.3)
--- NOTE | 2022-01-09 02:11 | HMH.EDURI ---
ED Disposition Clinical Impression: Upper respiratory infection Qualifiers: URI type: unspecified URI Qualified Code(s): J06.9 - Acute upper respiratory infection, unspecified Disposition: Home, Self-Care Condition on Discharge: Good Instructions: DI for Acute Bronchitis Additional Instructions: fluids and see pcp for follow up Referrals: Manuel Cunha APRN [Primary Care Provider] - - Critical Care Critical Care Time: No Attestation: On 01/09/22, the high probability of a clinically significant, sudden or life threatening deterioration of the following system(s) required my full and direct attention, intervention and personal management. The time I documented below is in addition to time spent performing reported procedures but includes the following listed in this critical care notation. Medical Decision Making - Medical Records Medical records reviewed: Yes: I reviewed the patient's medical records. - [place] Inquiry Pt receiving controlled substance: No Vital Signs: 01/09/22 01:11 Temperature 98.5 F Temperature Source Oral Pulse Rate [Right] 98 H Respiratory Rate 16 Blood Pressure [Right Arm] 115/70 Blood Pressure Mean [Right Arm] 85 02 Sat by Pulse Oximetry 98 - Lab Data Lab results reviewed: Yes: I reviewed the patient's lab results. Lab Results 01/09/22 01:15: SARS-CoV-2 (PCR) Not detected, Influenza A Untype (PCR) Not detected, Influenza Type B (PCR) Not detected 01/09/22 01:37: WBC 14.3 H, RBC 3.81 L, Hgb 12.4, Hct 39.8, MCV 104.5 H, MCH 32.4 H, MCHC 31.0 L, RDW 13.5, Plt Count 314, MPV 8.6, Neut % (Auto) 70.9, Lymph % (Auto) 21.9, [place] % (Auto) 4.6, Eos % (Auto) 1.7, Baso % (Auto) 1.0, Neut # (Auto) 10.1 H, Lymph # (Auto) 3.1, [place] # (Auto) 0.7, Eos # (Auto) 0.2, Baso # (Auto) 0.1 01/09/22 01:37: Sodium 138, Potassium 3.3 L, Chloride 101, Carbon Dioxide 29, Anion Gap 11.3, BUN 11, Creatinine 0.90, Estimated Creat Clear 105, Estimated GFR 65, Est GFR ( Amer) 79, Glucose 158 H, Calcium 9.4, Total Bilirubin < 0.1 L, AST 42 H, ALT 40, Alkaline Phosphatase 142 H, Troponin I < 0.01, C-Reactive Protein 9.2 H, Total Protein 6.8, Albumin 3.9, Globulin 2.9, Albumin/Globulin Ratio 1.3 Result diagrams: 01/09/22 01:37 01/09/22 01:37 Orders (Tests/Meds): ORDERS Category Date Time Status C-Reactive Protein Stat Lab 01/09/22 01:37 Results Complete Blood Count Auto Diff Stat Lab 01/09/22 01:37 Results Comprehensive Metabolic Panel Stat Lab 01/09/22 01:37 Results Erythrocyte Sedimentation Rate Stat Lab 01/09/22 01:37 Results Procalcitonin Stat Lab 01/09/22 01:37 Results Troponin I Q3H Lab 01/09/22 04:30 Ordered Troponin I Q3H Lab 01/09/22 07:30 Ordered Troponin I Stat Lab 01/09/22 01:37 Results - Radiology Data #1 Image(s): Chest Image Reviewed: Yes I have reviewed radiologist's interpretation Preliminary Findings: Normal/NAD - ECG Data Tracing #1 Normal Sinus Rhythm: Yes Ischemic changes: non-specific ST-T wave changes - KEVEN Score for Non-Stemi Age of Patient: 50-59 years old Heart Rate: 90-109 bpm Systolic Blood Pressure: 100-119 mmHg Serum Creatinine: 0.80-1.19 mg/dl CHF [place] Class: I-No CHF Other Risk Factors: None Non-Stemi Risk Score: 106 Medical Decision Narrative: nonspecific changes with recent z billy and steroids - will treat conservative at this time URI/Sore Throat HPI - General Chief Complaint: Upper Respiratory Infection Stated Complaint: Left heel pain,no injury, flu symptoms Time Seen by Provider: 01/09/22 01:30 Mode of Arrival: Ambulatory Source of Information: Patient, Medical Record Limitations: No Limitations Description of Symptoms (Recalled from ER Triage Doc. by RN): pt c/o Sore throat, n/v, runny nose, [place], SOA with exertion. also pt c/o lt heel pain but denies any accident. - History of Present Illness HPI Narrative: sore throat and uri sx with cough - MD Complaint: cough, sore throat, nasal congestion Onset (ago
[2022-01-09 02:16] LABS: Troponin I < 0.01 ng/ml (0.00-0.034)
[2022-01-09 02:20] LABS: Procalcitonin 0.059 ng/mL (0.0-2.0)
[2022-01-09 02:26] LABS: Erythrocyte Sedimentation Rate 37 mm/hr (0-30)
[2022-01-09 02:29] VITALS: BP 110/78; PULSE 91; RESP 16; TEMP 36.9; O2SAT 98
== END 2022-01-09 02:47 | disposition home or self-care (01) ==
PROVIDERS: Emergency Provider Emergency Medicine; PCP Nurse Practitioner Family
DX: J06.9 Acute upper respiratory infection, unspecified (principal)
CPT/HCPCS: 71046; 80053; 84145; 84484; 85025; 85651; 86140; 93005; 99284; C9803; U0003; U0005

== ENCOUNTER 2022-01-21 13:49 | Emergency (ER) | payer MEDICARE, MEDICAID, SELFPAY ==
[2022-01-21] VITALS (11 sets, daily range): BP systolic 98–135; BP diastolic 60–89; PULSE 73–87; RESP 14–22; TEMP 36.8–37; O2SAT 95–100; BMI 37.4
--- NOTE | 2022-01-21 13:49 | ECG_ITS ---
APPROVED REPORT Exam: Resting ECG HR:83 bpm ECG Measurements Heart Rate 83 AXES MD 176 P 5 QRSd 98 QRS -11 QT 370 T 21 QTc 409 Conclusion SINUS RHYTHM Late r wave progression, unchanged from prior BORDERLINE ECG UNCONFIRMED REPORT Electronically signed by : Sonido Hackett MD 01/23/2022 08:07:19
--- NOTE | 2022-01-21 13:54 | XR_ITS ---
FINAL REPORT CLINICAL HISTORY: chest pain COMPARISON: January 09, 2022 FINDINGS: PA and lateral views of the chest were obtained. There is no change in the left subclavian pacemaker. The cardiac and mediastinal silhouettes are within normal limits. The lung volumes are low The lungs are otherwise clear. There is no pleural effusion or pneumothorax. No acute osseous abnormality is identified. IMPRESSION: No radiographic evidence of acute cardiac or pulmonary disease. Reviewed, Interpreted and Dictated by Leslee Oreilly MD Transcribed by Cristel Rodriguez Authenticated and [facility]
--- NOTE | 2022-01-21 14:03 | HMH.EDGENADL ---
Discharge Plan Disposition Patient Disposition: Home, Self-Care Condition: Good Chief Complaint: Chest Pain Prescriptions Prescriptions: No Action ibuprofen 400 mg tablet 400 mg PO Q8H PRN (Reason: pain) cetirizine 10 mg tablet 10 mg PO PRN Label Comments: TAKE 1 TABLET BY MOUTH ONCE DAILY NEEDED Movantik 25 mg tablet 25 mg PO DAILY Label Comments: TAKE 1 TABLET BY MOUTH ONCE DAILY Emgality Pen 120 mg/mL pen injector 120 mg SQ QMONTH Qty: 1 5RF Qulipta 60 mg tablet 60 mg PO DAILY Qty: 30 5RF mupirocin 2 % ointment 1 applic TOPICAL BID 14 Days Qty: 22 0RF Rx Instructions: apply twice daily. albuterol sulfate 90 mcg/actuation HFA aerosol inhaler 2 puff INHALATION Q4-6H PRN (Reason: breathing) lamotrigine 200 mg tablet 200 mg PO BID quetiapine 200 mg tablet 400 mg PO QHS Label Comments: TAKE 1 TABLET BY MOUTH AT BEDTIME duloxetine 30 mg capsule,delayed release(DR/EC) 30 mg PO DAILY Label Comments: TAKE 1 CAPSULE BY MOUTH ONCE DAILY Linzess 290 mcg capsule 290 mcg PO DAILY cyclobenzaprine 10 mg tablet 10 mg PO TID PRN (Reason: muscle spasm) Qty: 60 5RF pantoprazole 40 mg tablet,delayed release (DR/EC) 40 mg PO DAILY pregabalin 150 mg capsule 150 mg PO BID Label Comments: TAKE 1 CAPSULE BY MOUTH TWICE DAILY bupropion HCl 200 mg tablet sustained-release 12 hr 200 mg PO DAILY Label Comments: TAKE 1 TABLET BY MOUTH TWICE DAILY lisinopril 2.5 mg tablet See Rx Instructions .ROUTE .COMPLEX Qty: 90 1RF Dose Instruction: Take 1 tablet by mouth once daily Rx Instructions: Take 1 tablet by mouth once daily metoprolol succinate 25 mg tablet extended release 24 hr See Rx Instructions .ROUTE .COMPLEX Qty: 30 5RF Dose Instruction: Take 1 tablet by mouth once daily Rx Instructions: Take 1 tablet by mouth once daily spironolactone [Aldactone] 25 mg tablet 25 mg PO DAILY Qty: 30 5RF famotidine 20 mg tablet 20 mg PO DAILY Ubrelvy 100 mg tablet 100 mg PO ONCE PRN (Reason: migraine headache) Qty: 10 5RF Rx Instructions: Take one at onset of headache. May repeat after 2 hours if pain persists. Max dose 200mg (two tabs) in 24 hours or 4 times per week prednisone 20 mg tablet 20 mg PO BID 5 Days Qty: 10 0RF benzonatate 100 mg capsule 100 mg PO TID PRN (Reason: cough) Qty: 30 0RF ondansetron HCl 4 mg tablet 4 mg PO PRN triamcinolone acetonide 0.1 % paste 1 applic DENTAL QD-BID PRN (Reason: tongue blisters) 10 Days Qty: 5 1RF Rx Instructions: use after food and/or drink and/or oral hygiene Eliquis 5 mg tablet See Rx Instructions .ROUTE .COMPLEX Qty: 180 0RF Dose Instruction: Take 1 tablet by mouth twice daily Rx Instructions: Take 1 tablet by mouth twice daily pravastatin 40 mg tablet 40 mg PO DAILY Qty: 30 2RF (DME) Blood Glucose Test Strip See Rx Instructions .ROUTE .MEDSUPPLY Qty: 100 12RF Rx Instructions: Test sugar twice daily or As directed meclizine 25 mg tablet 50 mg PO BID PRN (Reason: dizziness) Qty: 30 0RF furosemide 40 mg tablet 40 mg PO BID Qty: 60 3RF [id number] 2-30-10 mg/5 mL syrup 10 ml PO Q6H PRN (Reason: cold symptoms) Qty: 473 0RF levothyroxine 25 mcg capsule 25 mcg PO DAILY Qty: 30 2RF benzonatate 100 MG capsule 100 mg PO TIDP PRN (Reason: Cough) Qty: 30 0RF guaifenesin 600 MG tablet extended release 12hr 1 - 2 tab PO BIDP PRN (Reason: Congestion) Qty: 30 0RF fluticasone propion-salmeterol 500-50 blister with device 1 puff IH BID cholecalciferol (vitamin D3) 1,000 UNIT capsule 1,000 unit PO DAILY multivitamin [id number] 1 EACH tablet 1 each PO DAILY Referrals Referrals: Provider,Referral, MD [Referring] - Enter time for follow up Activity Restrictions/Add. In
--- NOTE | 2022-01-21 14:20 | PC.NURSE ---
rounded on pt at this time. pt requesting pain and nausea medication. MD notified. new orders placed by
[2022-01-21 14:27] LABS: Coronavirus 19, PCR Not Detected (NotDetected); Influenza A, PCR Not Detected (NotDetected); Influenza B, PCR Not Detected (NotDetected)
--- NOTE | 2022-01-21 14:29 | PC.NURSE ---
Notified Sandra in radiology of patients chest xray order
--- NOTE | 2022-01-21 14:30 | PC.NURSE ---
rounded on pt, pt was c/o nausea and continued pain. MD [place]
[2022-01-21 14:37] LABS: Basophils # 0.1 K/mm3 (0-0.2); Basophils % 1.6 % (0.1-2.0); Eosinophils # 0.2 K/mm3 (0.0-0.4); Eosinophils % 2.6 % (0.1-12.0); Hematocrit 41.7 % (37.0-47.0); Hemoglobin 13.1 g/dL (12.2-16.2); Lymphocytes # 1.9 K/mm3 (0.7-4.5); Lymphocytes % 20.9 % (10-50); Mean Corpuscular HGB Conc 31.3 g/dL (31.8-35.4); Mean Corpuscular Hemoglobin 32.4 pg (27.0-31.2); Mean Corpuscular Volume 103.6 fl (81-99); Mean Platelet Volume 8.2 fl (7.4-10.4); Monocytes # 0.4 K/mm3 (0.1-1.0); Monocytes % 4.7 % (1.7-9.3); Neutrophils # 6.4 K/mm3 (1.8-7.8); Neutrophils % 70.3 % (37.0-80.0); Platelet Count 313 K/mm3 (142-424); Red Blood Count 4.03 M/mm3 (4.20-5.40); Red Cell Distribution Width 13.9 % (11.5-17.5); White Blood Count 9.1 K/mm3 (4.8-10.8)
[2022-01-21 14:43] LABS: Alanine Aminotransferase 34 U/L (12-78); Albumin Level 4.3 g/dl (3.5-5.0); Alkaline Phosphatase 167 U/L (38-126); Aspartate Amino Transferase 51 U/L (14-36); Bilirubin,Direct 0.2 mg/dl (0.0-0.4); Bilirubin,Total 0.2 mg/dl (0.2-1.3); Total Protein,Serum 7.6 g/dl (6.3-8.2)
[2022-01-21 14:44] LABS: Anion Gap 11.8 mEq/L (5-15); Blood Urea Nitrogen 11 mg/dl (7-17); Carbon Dioxide 33 mmol/L (22.0-30.0); Chloride 100 mmol/L (98-107); Creatinine Clearance Estimated 124 mL/min (50-200); Estimated Glomerular Filt Rate 74 ml/min (>60); GFR (African American) 90 ML/MIN (>60); Glucose 96 mg/dl (74-100); Potassium 3.8 mmoL/L (3.5-5.1); Sodium 141 mmol/L (136-145)
[2022-01-21 14:49] LABS: D-Dimer 3.64 ug/mL (0.0-0.5)
[2022-01-21 14:52] LABS: NT Pro Brain Natriuretic Pep. 101 pg/mL (0-125)
[2022-01-21 14:56] LABS: Troponin I < 0.01 ng/ml (0.00-0.034)
--- NOTE | 2022-01-21 14:58 | CT_ITS ---
FINAL REPORT TECHNIQUE: Axial imaging of the chest is obtained after the administration of contrast. 3-D MIP reformatted images were also obtained and reviewed per PE protocol. CLINICAL HISTORY: SOA, CP, elevated dimer FINDINGS: The pulmonary arteries are well filled. There is no evidence of pulmonary embolus. There is no aortic dissection or intimal flap. The heart is enlarged. There is no mediastinal, hilar, or axillary lymphadenopathy. There are bilateral lower lobe ground-glass opacities favored to represent atelectasis but early pulmonary edema is not excluded. There is a pleural base nodular density in the right lower lobe measuring 10 mm. The lungs are otherwise clear. There is no pleural or pericardial effusion. Limited evaluation of the upper abdomen demonstrate postoperative changes to the stomach.. There is no acute osseous abnormality. IMPRESSION: 1. No evidence of pulmonary embolism or aortic dissection. 2. Cardiomegaly. 3. Right lower lobe nodule, recommend 3 month follow-up chest CT. Reviewed, Interpreted and Dictated by Leslee Oreilly MD Transcribed by Cristel Rodriguez Authenticated and [facility]
[2022-01-21 17:43] LABS: Troponin I < 0.01 ng/ml (0.00-0.034)
== END 2022-01-21 18:40 | disposition home or self-care (01) ==
PROVIDERS: Emergency Provider Emergency Medicine; PCP Nurse Practitioner Family
DX: R07.89 Other chest pain (principal); Z86.718 Personal history of other venous thrombosis and embolism; I25.10 Atherosclerotic heart disease of native coronary artery without angina pectoris; R91.1 Solitary pulmonary nodule; I10 Essential (primary) hypertension; E78.5 Hyperlipidemia, unspecified; Z79.899 Other long term (current) drug therapy; E11.9 Type 2 diabetes mellitus without complications
CPT/HCPCS: 71046; 71275; 80048; 80076; 83880; 84484; 85025; 85378; 93005; 96374; 96375; 99285; C9803; J2405; Q9967; U0003; U0005

== ENCOUNTER → 2022-01-25 06:08 | Outpatient (CLI) | payer MEDICARE, MEDICAID, SELFPAY ==
[2022-01-25 14:23] LABS: Coronavirus 19, PCR Not Detected (NotDetected); Influenza A, PCR Not Detected (NotDetected); Influenza B, PCR Not Detected (NotDetected)
== END ==
PROVIDERS: PCP Emergency Medicine; Visit Provider Emergency Medicine
DX: R07.89 Other chest pain (principal); R50.9 Fever, unspecified; Z20.822 Contact with and (suspected) exposure to COVID-19
CPT/HCPCS: C9803; U0003; U0005

== ENCOUNTER → 2022-04-07 16:00 | Outpatient (CLI) | payer MEDICARE, MEDICAID, SELFPAY | PROVIDERS: PCP Nurse Practitioner Family; Visit Provider Podiatrist | DX: M79.672 Pain in left foot (principal) | CPT/HCPCS: 73630 ==

== ENCOUNTER 2022-04-07 16:28 | Emergency (ER) | payer MEDICARE, MEDICAID, SELFPAY ==
[2022-04-07 16:43] VITALS: BP 116/77; PULSE 79; RESP 16; TEMP 37.2; O2SAT 96; BMI 36.3
--- NOTE | 2022-04-07 16:53 | CT_ITS ---
PROCEDURE INFORMATION: Exam: CT Pelvis Without Contrast; Skeletal Exam date and time: 04/07/2022 6:09 PM Age: 56 years old Clinical indication: Pain; Other: Low back; Prior surgery; Surgery date: 1-6 months; Surgery type: Fusion; Additional info: Fall, low back pain, recent fusion TECHNIQUE: Imaging protocol: Computed tomography of the pelvis without contrast. Exam focused on the skeleton. Radiation optimization: All CT scans at this facility use at least one of these dose optimization techniques: automated exposure control; mA and/or kV adjustment per patient size (includes targeted exams where dose is matched to clinical indication); or iterative reconstruction. COMPARISON: CR XR HIP RT 2-3V W/PELVIS 09/08/2019 6:48 AM FINDINGS: Appendix: Status post appendectomy Reproductive: Status post hysterectomy Bones/joints: No visible fracture or dislocation. Mild degenerative changes along the otherwise intact sacroiliac joints. Femoral heads are well seated in the acetabula. Mild subcortical cystic formation along the acetabula bilaterally Soft tissues: There is a 7 x 1 cm (TRV by AP) collection in the lower abdominal wall. Muscles are normal in bulk. IMPRESSION: 1. No visible fracture or dislocation. 2. 7 x 1 cm collection in the lower abdominal wall likely a seroma
--- NOTE | 2022-04-07 16:53 | CT_ITS ---
PROCEDURE INFORMATION: Exam: CT Thoracic Spine Without Contrast Exam date and time: 04/07/2022 6:04 PM Age: 56 years old Clinical indication: Other: Low back pain; Prior surgery; Additional info: Fall, low back pain, recent fusion TECHNIQUE: Imaging protocol: Computed tomography of the thoracic spine without contrast. Radiation optimization: All CT scans at this facility use at least one of these dose optimization techniques: automated exposure control; mA and/or kV adjustment per patient size (includes targeted exams where dose is matched to clinical indication); or iterative reconstruction. COMPARISON: CT ANGIO CHEST PE PROTOCOL 01/21/2022 3:05 PM FINDINGS: Bones/joints: Status post ACDF in the lower cervical spine. No hardware-related complication noted. Degenerative anterolisthesis of C7 over T1. There is otherwise preservation of vertebral alignment and vertebral body heights. Facet joints are aligned. There is no significant osseous encroachment of the spinal canal or neural foramina narrowing at any level. Soft tissues: Unremarkable. IMPRESSION: No acute fracture. No traumatic subluxation.
--- NOTE | 2022-04-07 16:54 | CT_ITS ---
PROCEDURE INFORMATION: Exam: CT Lumbar Spine Without Contrast Exam date and time: 04/07/2022 6:07 PM Age: 56 years old Clinical indication: Low back pain; Prior surgery; Surgery date: 1-6 months; Surgery type: Fusion on 03/01; Additional info: Fall, low back pain, recent fusion TECHNIQUE: Imaging protocol: Computed tomography of the lumbar spine without contrast. Radiation optimization: All CT scans at this facility use at least one of these dose optimization techniques: automated exposure control; mA and/or kV adjustment per patient size (includes targeted exams where dose is matched to clinical indication); or iterative reconstruction. COMPARISON: CT THORACIC SPINE WO CON 04/07/2022 6:04 PM FINDINGS: Bones/joints: Status post L4-L5 posterior interbody fusion and laminectomies. No hardware-related complication noted. There is preservation of vertebral alignment and vertebral body heights. Facet joints are aligned. No acute fracture. No significant central spinal canal stenosis or neural foramina narrowing at any level. Sacroiliac joints are intact. Soft tissues: Unremarkable. IMPRESSION: 1. Status post L4-L5 posterior interbody fusion. No significant central spinal canal or neural foramina narrowing at any level. 2. No acute fracture or traumatic subluxation.
--- NOTE | 2022-04-07 16:58 | HMH.EDGENADL ---
Discharge Plan Disposition Patient Disposition: Home, Self-Care Condition: Good Prescriptions Prescriptions: New methocarbamol 750 mg tablet 750 mg PO Q8H PRN (Reason: pain) Qty: 20 0RF No Action ibuprofen 400 mg tablet 400 mg PO Q8H PRN (Reason: pain) cetirizine 10 mg tablet 10 mg PO PRN Label Comments: TAKE 1 TABLET BY MOUTH ONCE DAILY NEEDED Movantik 25 mg tablet 25 mg PO DAILY Label Comments: TAKE 1 TABLET BY MOUTH ONCE DAILY Emgality Pen 120 mg/mL pen injector 120 mg SQ QMONTH Qty: 1 5RF Qulipta 60 mg tablet 60 mg PO DAILY Qty: 30 5RF mupirocin 2 % ointment 1 applic TOPICAL BID 14 Days Qty: 22 0RF Rx Instructions: apply twice daily. diazepam 2 mg tablet 2 mg PO prednisone 20 mg tablet See Rx Instructions .Route .COMPLEX Qty: 15 0RF Rx Instructions: Take 1 tablet twice daily for 5 days, then Take 1 tablet daily for 5 days; albuterol sulfate 90 mcg/actuation HFA aerosol inhaler 2 puff INHALATION Q4-6H PRN (Reason: breathing) lamotrigine 200 mg tablet 200 mg PO BID quetiapine 200 mg tablet 400 mg PO QHS Label Comments: TAKE 1 TABLET BY MOUTH AT BEDTIME duloxetine 30 mg capsule,delayed release(DR/EC) 30 mg PO DAILY Label Comments: TAKE 1 CAPSULE BY MOUTH ONCE DAILY Linzess 290 mcg capsule 290 mcg PO DAILY cyclobenzaprine 10 mg tablet 10 mg PO TID PRN (Reason: muscle spasm) Qty: 60 5RF pantoprazole 40 mg tablet,delayed release (DR/EC) 40 mg PO DAILY pregabalin 150 mg capsule 150 mg PO BID Label Comments: TAKE 1 CAPSULE BY MOUTH TWICE DAILY bupropion HCl 200 mg tablet sustained-release 12 hr 200 mg PO DAILY Label Comments: TAKE 1 TABLET BY MOUTH TWICE DAILY lisinopril 2.5 mg tablet See Rx Instructions .ROUTE .COMPLEX Qty: 90 1RF Dose Instruction: Take 1 tablet by mouth once daily Rx Instructions: Take 1 tablet by mouth once daily spironolactone [Aldactone] 25 mg tablet 25 mg PO DAILY Qty: 30 5RF famotidine 20 mg tablet 20 mg PO DAILY Ubrelvy 100 mg tablet 100 mg PO ONCE PRN (Reason: migraine headache) Qty: 10 5RF Rx Instructions: Take one at onset of headache. May repeat after 2 hours if pain persists. Max dose 200mg (two tabs) in 24 hours or 4 times per week ondansetron HCl 4 mg tablet 4 mg PO PRN triamcinolone acetonide 0.1 % paste 1 applic DENTAL QD-BID PRN (Reason: tongue blisters) 10 Days Qty: 5 1RF Rx Instructions: use after food and/or drink and/or oral hygiene (DME) Blood Glucose Test Strip See Rx Instructions .ROUTE .MEDSUPPLY Qty: 100 12RF Rx Instructions: Test sugar twice daily or As directed furosemide 40 mg tablet 40 mg PO BID Qty: 60 3RF Eliquis 5 mg tablet See Rx Instructions .ROUTE .COMPLEX Qty: 180 0RF Dose Instruction: Take 1 tablet by mouth twice daily Rx Instructions: Take 1 tablet by mouth twice daily meclizine 25 mg tablet 50 mg PO BID PRN (Reason: dizziness) Qty: 30 0RF pravastatin 40 mg tablet See Rx Instructions .ROUTE .COMPLEX Qty: 30 0RF Dose Instruction: Take 1 tablet by mouth once daily Rx Instructions: Take 1 tablet by mouth once daily nitrofurantoin monohyd/m-cryst [Macrobid] 100 mg capsule 100 mg PO BID 10 Days Qty: 20 0RF Rx Instructions: must administer with a meal/food metoprolol succinate 25 mg tablet extended release 24 hr See Rx Instructions .ROUTE .COMPLEX Qty: 30 5RF Dose Instruction: Take 1 tablet by mouth once daily Rx Instructions: Take 1 tablet by mouth once daily levothyroxine 25 mcg tablet 25 mcg PO DAILY Qty: 30 2RF guaifenesin 600 MG tablet extended release 12hr 1 - 2 tab PO BIDP PRN (Reason: Congestion) Qty: 30 0RF fluticasone propion-salmeterol 500-50 blister with device 1 puff IH BID cholecalciferol (vitamin D3
[2022-04-07 17:58] LABS: Chloride 98 mmol/L (98-107); Sodium 137 mmol/L (136-145)
[2022-04-07 17:59] LABS: Potassium 4.1 mmoL/L (3.5-5.1)
[2022-04-07 18:01] LABS: Blood Urea Nitrogen 13 mg/dl (7-17); Creatinine Clearance Estimated 121 mL/min (50-200); Estimated Glomerular Filt Rate 74 ml/min (>60); GFR (African American) 90 ML/MIN (>60)
[2022-04-07 18:02] LABS: Anion Gap 14.1 mEq/L (5-15); Calcium 9.4 mg/dl (8.4-10.2); Carbon Dioxide 29 mmol/L (22.0-30.0); Glucose 111 mg/dl (74-100)
[2022-04-07 18:05] LABS: Basophils # 0.1 K/mm3 (0-0.2); Basophils % 1.5 % (0.1-2.0); Eosinophils # 0.4 K/mm3 (0.0-0.4); Eosinophils % 4.3 % (0.1-12.0); Hematocrit 37.6 % (37.0-47.0); Hemoglobin 11.7 g/dL (12.2-16.2); Lymphocytes # 2.9 K/mm3 (0.7-4.5); Lymphocytes % 33.3 % (10-50); Mean Corpuscular HGB Conc 31.2 g/dL (31.8-35.4); Mean Corpuscular Hemoglobin 32.2 pg (27.0-31.2); Mean Corpuscular Volume 103.1 fl (81-99); Mean Platelet Volume 8.1 fl (7.4-10.4); Monocytes # 0.4 K/mm3 (0.1-1.0); Monocytes % 4.6 % (1.7-9.3); Neutrophils % 56.3 % (37.0-80.0); Platelet Count 344 K/mm3 (142-424); Red Blood Count 3.65 M/mm3 (4.20-5.40); Red Cell Distribution Width 14.5 % (11.5-17.5); White Blood Count 8.8 K/mm3 (4.8-10.8)
[2022-04-07 19:04] VITALS: BP 120/78; PULSE 81; RESP 20; TEMP 37.2; O2SAT 97
== END 2022-04-07 19:06 | disposition home or self-care (01) ==
PROVIDERS: Emergency Provider Emergency Medicine; PCP Nurse Practitioner Family
DX: W17.89XA Other fall from one level to another, initial encounter (principal); Z79.899 Other long term (current) drug therapy; M54.50 Low back pain, unspecified; F32.A Depression, unspecified; Z88.1 Allergy status to other antibiotic agents; Z88.2 Allergy status to sulfonamides; Z88.8 Allergy status to other drugs, medicaments and biological substances; Z95.0 Presence of cardiac pacemaker
CPT/HCPCS: 72128; 72131; 72192; 80048; 85025; 96374; 96375; 99285; J2405